=== PATIENT | male | born 1970 | race African-American/Black ===

== ENCOUNTER 2016-06-19 14:41 | Inpatient (IN) | payer MEDICARE, OTHER ==
[~2016-06-19] VITALS: Ht 180.3 cm; Wt 114.4 kg
[~2016-06-19 14:41] MED LIST changes: -CARI350T20 PO; -CIAL5TAB PO; -HYDR-3534 PO; -OXYB5TAB10 PO; -PHEN0.4T PO; -TAMS5CAP PO
[2016-06-24] MEDS ORDERED: INSULIN HUMAN REGULAR 1,000 UNITS/10 ML VIAL SQ PRN (07:00)
[2016-06-24] MEDS ORDERED: LACTATED RINGER'S 1000 ML IV SCH (07:00)
[2016-06-24] MEDS ORDERED: SOD PHOSPHATE/SOD BIPHOSPHATE (ADULT) ENEMA 133ML PR ONE (07:00)
[2016-06-24] MEDS ORDERED: ceFAZolin 1,000 MG/NS 100 ML IV SCH ×2 (07:00)
[2016-06-24] MEDS ORDERED: SODIUM CHLORID 0.9% 500 ML IV SCH (07:00)
[2016-06-24] MEDS ORDERED: METOPROLOL TARTRATE 25 MG TAB PO PRN (07:00)
[2016-06-24 07:14] VITALS: BP 170/96; PULSE 72; RESP 20; TEMP 98.2; O2SAT 97
[2016-06-24] MEDS ORDERED: fentaNYL CITRATE 250 MCG/5 ML AMP ONE ×3 (07:44→15:10)
[2016-06-24] MEDS ORDERED: HYDROmorphone HCL PF 2 MG/ML VIAL ONE (07:44)
[2016-06-24] MEDS ORDERED: MIDAZOLAM HCL 2 MG/2 ML VIAL ONE (07:46)
[2016-06-24] MEDS ORDERED: HEPARIN SODIUM - SQ 10,000 UNITS/ML VIAL ONE (08:29)
[2016-06-24] MEDS ORDERED: ceFAZolin INJ 1,000 MG VIAL TOP ONE (09:14)
[2016-06-24] MEDS ORDERED: HEPARIN SODIUM - SQ 10,000 UNITS/ML VIAL OTHER ONE (09:14)
[2016-06-24] MEDS ORDERED: ONDANSETRON HCL 4 MG/2 ML VIAL IV PUSH ONE (11:01)
[2016-06-24] MEDS ORDERED: NEOSTIGMINE 3 MG/3 ML SYR IV ONE (11:01)
[2016-06-24] MEDS ORDERED: PROPOFOL 200 MG/20 ML AMP IV ONE (11:01)
[2016-06-24] MEDS ORDERED: LACTATED RINGER'S 1000 ML INJ 2,000 ML IV ONE (11:01)
[2016-06-24] MEDS ORDERED: SODIUM CHLORID 0.9% 500 ML INJ 500 ML IV ONE (11:01)
[2016-06-24] MEDS ORDERED: NORMOSOL R INJ 2,000 ML IV ONE (11:01)
[2016-06-24] MEDS ORDERED: PHENYLEPH/NS 1000 MCG/10 ML SYR IV ONE (11:01)
[2016-06-24] MEDS ORDERED: ceFAZolin 2 GM PREMIX 50 ML ONE (11:06)
[2016-06-24 12:15] LABS: BLOOD GAS BASE EXCESS -3.5 mmol/L (-2-2); BLOOD GAS CARBOXYHEMOGLOBIN 3.4 % (0-4); BLOOD GAS HCO3 21 mmol/L (22-26); BLOOD GAS METHEMOGLOBIN 1.5 % (0-2); BLOOD GAS O2 HGB SATURATION 94 % (90-100); BLOOD GAS PCO2 40 mmHg (38-42); BLOOD GAS PO2 156 mmHg (61-120); BLOOD GAS TOTAL HGB 11.1 G/DL (12.0-16.0); CRITICAL VALUE NO; OXYGEN DEVICE VENTILATOR; TEMP CORR TO 98.6
[2016-06-24 12:16] LABS: FIO2 21 %; VENT SETTINGS OR SETTINGS
[2016-06-24 12:17] LABS: STAT YES; ULNAR PULSE PRESENT
[2016-06-24 13:51] LABS: BLOOD GAS BASE EXCESS -3.2 mmol/L (-2-2); BLOOD GAS CARBOXYHEMOGLOBIN 2.6 % (0-4); BLOOD GAS HCO3 22 mmol/L (22-26); BLOOD GAS METHEMOGLOBIN 1.7 % (0-2); BLOOD GAS O2 HGB SATURATION 95 % (90-100); BLOOD GAS OXYGEN CONTENT 15.9 Vol % (12.0-20.0); BLOOD GAS PCO2 40 mmHg (38-42); BLOOD GAS PO2 187 mmHg (61-120); BLOOD GAS TOTAL HGB 11.6 G/DL (12.0-16.0); TEMP CORR TO 98.6
[2016-06-24 13:52] LABS: CRITICAL VALUE NO; FIO2 21 %; OXYGEN DEVICE VENTILATOR; STAT YES; ULNAR PULSE PRESENT; VENT SETTINGS OR SETTINGS
[2016-06-24 13:57] LABS: HEMATOCRIT 30.1 % (39.0-51.0); MEAN CORPUSCULAR HEMOGLOBIN 31.4 PG (27.0-34.0); MEAN CORPUSCULAR HGB CONC 34.1 % (32.0-36.0); PLATELET COUNT 271 TH/MM3 (150-450); RED BLOOD COUNT 3.27 MIL/MM3 (4.50-5.90); RED CELL DISTRIBUTION WIDTH 13.9 % (11.6-17.2); REVIEW FLAG FINAL; WHITE BLOOD COUNT 7.9 TH/MM3 (4.0-11.0)
[2016-06-24] MEDS ORDERED: ONDANSETRON HCL 4 MG/2 ML VIAL IV PUSH PRN (15:00)
[2016-06-24] MEDS: HYDROmorphone HCL PCA 6 MG/30 ML IV SCH (15:10)
--- NOTE | 2016-06-24 15:21 | PD.OP ---
Operative Report Date of Surgery: Jun 24, 2016 Preoperative Diagnosis: Prostate cancer Postoperative Diagnosis: Same Procedure: Radical retropubic prostatectomy with bilateral pelvic lymph node dissection Anesthesia: ECTORA Surgeon: Vidal Rodriguez Podiatric Foot And Ankle Specialist(s): Dr. Ellis Yee Resident Surgeon: None Operation and Findings: Diann Dolan is a 45-year-old male with a diagnosis of Belen 9 prostate cancer. PSA was 13. His bone scan and CT scan preoperatively were negative. Patient elected to undergo radical retropubic prostatectomy with bilateral pelvic lymph node dissection. Risk were discussed preoperatively with the patient and his including impotence and incontinence. Patient also understood that given his high Belen score (9) he may need adjuvant therapy. Patient was brought to the operating room and identified myself as Diann Oliveira. He is placed on the operating table in the supine position, prepped and draped in usual sterile fashion, received preprocedure antibiotics, and general endotracheal tube anesthesia was administered. 15 blade was used to make the opening incision extending from the umbilicus down to the symphysis pubis. Scar present Risk fashion were entered. The Bovie cautery was used to maintain hemostasis. The linea alba was identified and the rectus muscle was split with my index finger. The space of Retzius was identified and the fat was swept laterally. The Bookwalter retractor was then placed. A 20 [place] Merchant catheter was inserted to beginning of the procedure. The bladder blade was inserted and the bladder was then elevated. Initially, the dissection occurred at the left pelvic obturator node pocket. Using the Metzenbaum scissors and the small clip crystal evaluator, lymph node packet was dissected out freely and removed without difficulty. Care was taken to avoid the obturator nerve. This was then performed on the right side. The right obturator lymph node packet was then sent to pathology. Frozen section analysis showed that this was negative. Unfortunately the left obturator node packet was placed in formalin and was not able to be sent for frozen analysis. Dissection then proceeded at the dorsal vein complex. A 2-0 Vicryl suture was used to suture ligate the dorsal vein complex. Using the scissors then the dorsal vein complex was cut along with the puboprostatics. The urethra was then cut and the catheter was identified. Using a right angle clamp, the catheter was elevated and cut and brought through the urethra and out leaving the Merchant balloon intact. Right angle clamp was then utilized to get behind the posterior inferior aspect of the urethra and this was then cut with the Metzenbaum scissors. Using my index finger, the butter plane was established between the prostate and the rectum. This was difficult to dissect out freely and I needed to use a scissors to separate the rectum from the inferior aspect of the prostate. Once that was freed up then attention was directed to the lateral pedicles. Using a radial clamp and a silk suture the pedicles were dissected out and ligated. There were then cut using the Metzenbaum scissor. The bladder neck was then identified and using the scissors this was cut right at the prosthetic bladder junction. Circumferentially the bladder neck was cut and eventually entirely from the prostate. Care was taken to avoid the ureteral orifices. These were both identified and 5 [place] open catheter was inserted into both. Due to the close proximity of the right ureteral orifice to the cut margin, a 6 [place] 22 cm right double-J stent was placed over a sensor wire and left in good position. The remaining dissection of the seminal vesicles and vas deferens was then performed and once those attachments were free and the prostate was inspected entire specimen was brought out. Hemostasis was obtained using the Bovie cautery. At this time the bladder neck was closed using the tennis racket technique. And then the opening of the bladder was then maggie budded using a 2-0 Vicryl suture with interrupted circumferential sutures. One frozen section area of the bladder neck was sent to pathology and this area was negative for any evidence of prosthetic tissue or tumor. At this time the bladder neck anastomosis was performed. A new 20 [place] Merchant catheter was inserted into the bladder and then 5 2-0 Vicryl sutures were placed at the region of the bladder neck as well as the prostatic urethra. These were then tied down individually while traction was placed on the Merchant catheter. Merchant was then irrigated to clear and good filling of the bladder was noted. A 10 [place] BABITA drain was left in the bladder neck anastomosis and brought out through the scans. The wound was irrigated with warm saline. 0 looped PDS was then used to close the fascia and then lindy were used to close the skin incision. The patient was stable throughout the entire procedure with the blood loss 1300 cc. He was awoken, extubated, and transferred her stable condition. Vdial Rodriguez DO Jun 24, 2016 15:21
[2016-06-24] MEDS ORDERED: PILL SPLITTER OTHER PRN (15:30)
[2016-06-24] MEDS ORDERED: HYDROmorphone HCL PCA 6 MG/30 ML IV ONE (15:32)
[2016-06-24] MEDS: SODIUM CHLOR 0.45% 1000 ML INJ 1,000 ML IV SCH ×2 (15:40→21:28)
--- NOTE | 2016-06-24 15:50 | RADRPT ---
EXAM DATE/TIME: 06/24/2016 15:06 [facility] COMPARISON: No previous studies available for comparison. INDICATIONS : JJ stent insertion. MEDICAL HISTORY : Hypertension. Asthma. SURGICAL HISTORY : Appendectomy. ENCOUNTER: Initial ACUITY: 1 day PAIN SCORE: Non-responsive. LOCATION: Bilateral Abdomen FINDINGS: Single, limited view of the abdomen. The patient is obliqued. I can see the upper portion of the righ t double-J stent and the Freeland loop in the region of the pelvis. Multiple pelvic sidewall surgical sta ples are identified on the left. Visualized osseous structures are otherwise intact. Bowel gas patter n is nonobstructed. CONCLUSION: 1. Very limited examination with no obvious obstruction. 2. Double-J stent is incompletely evaluated. I do see the proximal portion at the level of the L2 jyoti tebral body with the Freeland loop at the edge of the film in the region of the pelvis. Heber Fabian MD on June 24, 2016 at 15:46 Board Certified Radiologist. This report was verified electronically.
[2016-06-24] MEDS ORDERED: DO NOT ADM ANY ANTICOAGULANT DRUGS XX PRN (16:00)
[2016-06-24 16:14] LABS: POTASSIUM 4.6 MEQ/L (3.5-5.1)
[2016-06-24] MEDS ORDERED: diphenhydrAMINE HCL 50 MG/ML VIAL IV PUSH PRN (16:15)
[2016-06-24] MEDS ORDERED: NALOXONE HCL 0.4 MG/ML AMP IV PRN (16:15)
[2016-06-24 16:28] LABS: CALCIUM-PROTEIN CORRECTED 8.1 MG/DL (8.5-10.1)
[2016-06-24 17:59] LABS: BLOOD GAS BASE EXCESS -2.4 mmol/L (-2-2); BLOOD GAS CARBOXYHEMOGLOBIN 2.1 % (0-4); BLOOD GAS HCO3 22 mmol/L (22-26); BLOOD GAS METHEMOGLOBIN 1.8 % (0-2); BLOOD GAS O2 HGB SATURATION 91 % (90-100); BLOOD GAS OXYGEN CONTENT 13.3 Vol % (12.0-20.0); BLOOD GAS PCO2 41 mmHg (38-42); BLOOD GAS PO2 79 mmHg (61-120); BLOOD GAS TOTAL HGB 10.3 G/DL (12.0-16.0); CRITICAL VALUE NO; DRAW SITE LT RADIAL; LITER FLOW 3 L/M; NUMBER OF ARTERIAL PUNCTURES 1; OXYGEN DEVICE NASAL CANNULA; STAT NO; TEMP CORR TO 98.6; ULNAR PULSE PRESENT
[2016-06-24] MEDS ORDERED: *LABETALOL HCL 100 MG/20 ML VIAL PERIprocedural Use ONLY ONE (18:19)
[2016-06-24] MEDS ORDERED: *HYDROmorphone PF 1 MG VIAL PERIprocedural Use ONLY ONE (18:39)
[2016-06-24] MEDS: ceFAZolin 2 GM PREMIX 50 ML IV SCH (19:35)
[2016-06-24 20:00] VITALS: BP 170/79; PULSE 85; RESP 17; TEMP 96.1; O2SAT 98
[2016-06-24] MEDS: carBAMazepine 200 MG TAB PO SCH (21:00)
[2016-06-24] MEDS: PCA - TOTAL MG DILAUDID DELIVERED PER SHIFT SCH (21:26)
[2016-06-25] VITALS (7 sets, daily range): BP systolic 131–154; BP diastolic 65–82; PULSE 81–101; RESP 17–18; TEMP 97.8–98.8; O2SAT 94–97
[2016-06-25] MEDS: carBAMazepine 200 MG TAB PO SCH ×3 (02:52→21:37)
[2016-06-25] MEDS: ceFAZolin 2 GM PREMIX 50 ML IV SCH ×2 (02:53→11:36)
[2016-06-25] MEDS: CYCLOBENZAPRINE HCL 10 MG TAB PO PRN ×3 (02:53→21:37)
[2016-06-25] MEDS: HYDROmorphone HCL PCA 6 MG/30 ML IV SCH ×3 (03:42→17:33)
[2016-06-25 04:31] LABS: HEMATOCRIT 31.3 % (39.0-51.0); MEAN CELL VOLUME 93.3 FL (80.0-100.0); MEAN CORPUSCULAR HEMOGLOBIN 30.2 PG (27.0-34.0); MEAN CORPUSCULAR HGB CONC 32.3 % (32.0-36.0); PLATELET COUNT 229 TH/MM3 (150-450); RED BLOOD COUNT 3.36 MIL/MM3 (4.50-5.90); RED CELL DISTRIBUTION WIDTH 13.6 % (11.6-17.2); WHITE BLOOD COUNT 14.6 TH/MM3 (4.0-11.0)
[2016-06-25 04:37] LABS: REVIEW FLAG FINAL
[2016-06-25 04:56] LABS: BICARBONATE 23.9 MEQ/L (21.0-32.0); POTASSIUM 4.8 MEQ/L (3.5-5.1)
[2016-06-25] MEDS: PCA - TOTAL MG DILAUDID DELIVERED PER SHIFT SCH ×3 (05:29→21:39)
[2016-06-25] MEDS: SODIUM CHLOR 0.45% 1000 ML INJ 1,000 ML IV SCH ×3 (05:30→23:30)
--- NOTE | 2016-06-25 08:14 | HHI.PR ---
Subjective Patient symptoms today Pt seen and examined. Pain controlled. C/O headace. Objective Vital Signs Vital Signs Date Time Temp Pulse Resp B/P Pulse Ox O2 Delivery O2 Flow Rate FiO2 06/25/16 04:00 98.6 81 17 131/79 97 06/25/16 00:00 98.8 99 18 140/82 97 06/24/16 20:00 96.1 85 17 170/79 98 06/24/16 19:30 98.2 87 14 152/85 99 Nasal Cannula 2 06/24/16 19:00 85 14 136/88 100 Nasal Cannula 2 06/24/16 18:45 83 14 122/83 100 Nasal Cannula 2 06/24/16 18:30 85 14 138/75 98 Nasal Cannula 2 06/24/16 18:20 107 14 182/83 98 06/24/16 18:15 108 14 196/83 98 Nasal Cannula 2 06/24/16 18:00 95 14 155/81 98 Nasal Cannula 2 06/24/16 17:45 97 14 155/82 98 Nasal Cannula 2 06/24/16 17:30 95 14 171/85 99 Nasal Cannula 2 06/24/16 17:15 91 14 152/71 100 Nasal Cannula 2 06/24/16 17:00 94 14 156/73 100 Nasal Cannula 2 06/24/16 16:45 91 14 143/70 100 Nasal Cannula 2 06/24/16 16:30 92 14 138/74 100 Nasal Cannula 2 06/24/16 16:15 93 14 139/83 98 Nasal Cannula 2 06/24/16 16:00 97 14 138/82 100 Nasal Cannula 2 06/24/16 15:45 92 14 132/57 99 Nasal Cannula 3 06/24/16 15:30 88 16 151/69 99 Nasal Cannula 3 06/24/16 15:15 92 16 166/77 98 Nasal Cannula 3 06/24/16 15:10 14 06/24/16 15:00 97.8 98 16 166/83 100 Simple Mask 6 Result Diagram: 06/25/1635806/25/16358 Objective Remarks Abd:soft,nt,nt Dressing intact Merchant with slight blood tinge color Ext: neg C/C/E Medications and IVs Current Medications Medications (Trade) Dose Ordered Sig/Christiano Route Start Time Stop Time Status Last Admin Cefazolin Sodium/ Dextrose 50 ml @ 100 mls/hr Q8H IV 06/24/16 20:00 06/25/16 12:29 06/25/16 02:53 (1/2 NS 1000 ml Inj) 1,000 ml @ 125 mls/hr Q8H IV 06/24/16 15:30 06/25/16 05:30 (Zofran Inj) 4 mg Q6HR PRN IV PUSH 06/24/16 15:00 (TEGretol) 200 mg Q12HR PO 06/24/16 21:00 06/25/16 02:52 (Prinivil) 20 mg DAILY PO 06/25/16 09:00 (Tylenol 650 Mg/ 20 ml Liq) 650 mg Q6H PRN PO 06/24/16 15:00 (Flexeril) 5 mg Q8H PRN PO 06/24/16 15:00 06/25/16 02:53 (Pill Splitter) 1 ea UNSCH PRN OTHER 06/24/16 15:30 Miscellaneous Information ALL NURSING DEPARTME... UNSCH PRN XX 06/24/16 16:00 06/25/16 15:59 (Dilaudid ONLINE MEDIA BUYER Inj) 6 mg UNSCH IV 06/24/16 16:30 06/25/16 03:42 ONLINE MEDIA BUYER Dosage Infused (Pha) 1 Q8HR .XX 06/24/16 22:00 06/25/16 05:29 (Narcan Inj) 0.4 mg UNSCH PRN IV 06/24/16 16:15 (Benadryl Inj) 25 mg Q6H PRN IV PUSH 06/24/16 16:15 Assessment and Plan Assessment and Plan Stable s/p RRP and PLND POD#1 OOB to chair Clear liquid diet Tylenol for headace Vidal Rodriguez DO Jun 25, 2016 08:14
[2016-06-25] MEDS: LISINOPRIL 20 MG TAB PO SCH (08:28)
[2016-06-25] MEDS: ACETAMINOPHEN 650 MG/20.3 ML UDC PO PRN ×2 (08:30→18:43)
[2016-06-26] VITALS: BP 137/63; PULSE 99; RESP 18; TEMP 96.3; O2SAT 98
[2016-06-26 04:00] VITALS: BP 147/69; PULSE 96; RESP 18; TEMP 98.8; O2SAT 95
[2016-06-26 05:35] LABS: HEMATOCRIT 24.5 % (39.0-51.0); MEAN CELL VOLUME 92.3 FL (80.0-100.0); MEAN CORPUSCULAR HEMOGLOBIN 31.7 PG (27.0-34.0); MEAN CORPUSCULAR HGB CONC 34.4 % (32.0-36.0); PLATELET COUNT 237 TH/MM3 (150-450); RED BLOOD COUNT 2.66 MIL/MM3 (4.50-5.90); RED CELL DISTRIBUTION WIDTH 13.4 % (11.6-17.2); REVIEW FLAG FINAL; WHITE BLOOD COUNT 10.1 TH/MM3 (4.0-11.0)
[2016-06-26 05:58] LABS: BICARBONATE 25.3 MEQ/L (21.0-32.0); POTASSIUM 4.4 MEQ/L (3.5-5.1)
[2016-06-26] MEDS: PCA - TOTAL MG DILAUDID DELIVERED PER SHIFT SCH ×3 (06:00→21:07)
[2016-06-26] MEDS ORDERED: LORazepam 2 MG/ML VIAL IV SCH (06:05)
[2016-06-26] MEDS ORDERED: LORazepam 2 MG/ML VIAL IV PRN (06:15)
[2016-06-26] MEDS: SODIUM CHLOR 0.45% 1000 ML INJ 1,000 ML IV SCH ×2 (07:30→21:07)
[2016-06-26 08:00] VITALS: BP 133/63; PULSE 109; RESP 19; TEMP 97.6; O2SAT 95
[2016-06-26] MEDS: carBAMazepine 200 MG TAB PO SCH ×2 (08:08→21:06)
[2016-06-26] MEDS: LISINOPRIL 20 MG TAB PO SCH (08:08)
--- NOTE | 2016-06-26 08:44 | HHI.PR ---
Subjective Patient symptoms today Pt seen and examined. Appears somulent. at bedside and is empting BABITA drain. States "he had a seizure last night and is not getting the correct dose of tegratol." Objective Vital Signs Vital Signs Date Time Temp Pulse Resp B/P Pulse Ox O2 Delivery O2 Flow Rate FiO2 06/26/16 08:00 97.6 109 19 133/63 95 06/26/16 06:00 20 06/26/16 04:00 98.8 96 18 147/69 95 06/26/16 00:00 96.3 99 18 137/63 98 06/25/16 21:39 18 06/25/16 20:00 98.3 97 18 144/65 95 06/25/16 17:46 97 Nasal Cannula 2.00 06/25/16 17:33 16 06/25/16 13:11 18 06/25/16 12:00 98.8 96 18 144/81 97 06/25/16 11:42 18 Intake & Output 06/26/16 06/26/16 07:00 19:00 Intake Total 2419 ml 120 ml Output Total 1680 ml Balance 739 ml 120 ml Intake Oral 440 ml 120 ml IV Total 1979 ml Output Urine Total 1600 ml Drainage Total 80 ml # Bowel Movements 0 Result Diagram: 06/26/1643506/26/16435 Objective Remarks Abd:soft,nt,nt Dressing intact Merchant with slight blood tinge color Ext: neg C/C/E 06/26 Abd:soft,nt,nd Dressing intact BABITA: serous drainage Merchant: urine clearing Ext: neg C/C/E Medications and IVs Current Medications Medications (Trade) Dose Ordered Sig/Christiano Route Start Time Stop Time Status Last Admin (04/07 NS 1000 ml Inj) 1,000 ml @ 125 mls/hr Q8H IV 06/24/16 15:30 06/25/16 23:30 (Zofran Inj) 4 mg Q6HR PRN IV PUSH 06/24/16 15:00 (Prinivil) 20 mg DAILY PO 06/25/16 09:00 06/26/16 08:08 (Tylenol 650 Mg/ 20 ml Liq) 650 mg Q6H PRN PO 06/24/16 15:00 06/25/16 18:43 (Flexeril) 5 mg Q8H PRN PO 06/24/16 15:00 06/25/16 21:37 (Pill Splitter) 1 ea UNSCH PRN OTHER 06/24/16 15:30 (Dilaudid GENERAL ASSEMBLER INSTALLER Inj) 6 mg UNSCH IV 06/24/16 16:30 06/25/16 17:33 GENERAL ASSEMBLER INSTALLER Dosage Infused (Pha) 1 Q8HR .XX 06/24/16 22:00 06/26/16 06:00 (Narcan Inj) 0.4 mg UNSCH PRN IV 06/24/16 16:15 (Benadryl Inj) 25 mg Q6H PRN IV PUSH 06/24/16 16:15 (TEGretol) 600 mg Q12HR PO 06/26/16 09:00 06/26/16 08:08 (Ativan Inj) 0.5 mg Q6HR PRN IV 06/26/16 06:15 06/26/16 07:29 Assessment and Plan Assessment and Plan Stable s/p RRP and PLND POD#1 OOB to chair Clear liquid diet Tylenol for headace 06/26 Stable s/p RRP and PLND POD#2 OOB to chair Encourage I/S Vidal Rodriguez DO Jun 26, 2016 08:44
[2016-06-26] MEDS: HYDROmorphone HCL PCA 6 MG/30 ML IV SCH (11:39)
[2016-06-26 12:00] VITALS: BP 142/69; PULSE 110; RESP 22; TEMP 98.6; O2SAT 100
[2016-06-26 16:00] VITALS: BP 139/78; PULSE 96; RESP 20; TEMP 97.8; O2SAT 99
[2016-06-26 20:00] VITALS: BP 154/73; PULSE 105; RESP 18; TEMP 98.6; O2SAT 96
[2016-06-26] MEDS: CYCLOBENZAPRINE HCL 10 MG TAB PO PRN (21:06)
[2016-06-27] VITALS (11 sets, daily range): BP systolic 113–156; BP diastolic 56–71; PULSE 79–95; RESP 16–20; TEMP 96–98.4; O2SAT 92–97
[2016-06-27 04:29] LABS: MEAN CELL VOLUME 92.7 FL (80.0-100.0); MEAN CORPUSCULAR HEMOGLOBIN 31.3 PG (27.0-34.0); MEAN CORPUSCULAR HGB CONC 33.7 % (32.0-36.0); PLATELET COUNT 201 TH/MM3 (150-450); RED BLOOD COUNT 2.23 MIL/MM3 (4.50-5.90); RED CELL DISTRIBUTION WIDTH 13.6 % (11.6-17.2); WHITE BLOOD COUNT 8.2 TH/MM3 (4.0-11.0)
[2016-06-27 04:33] LABS: REVIEW FLAG FINAL
[2016-06-27 04:37] LABS: HEMATOCRIT 20.7 % (39.0-51.0)
[2016-06-27] MEDS: PCA - TOTAL MG DILAUDID DELIVERED PER SHIFT SCH (06:00)
[2016-06-27 08:33] LABS: HEMATOCRIT 21.2 % (39.0-51.0); REVIEW FLAG FINAL
[2016-06-27] MEDS: LISINOPRIL 20 MG TAB PO SCH (08:56)
[2016-06-27] MEDS: carBAMazepine 200 MG TAB PO SCH ×2 (08:56→20:14)
[2016-06-27] MEDS: SODIUM CHLOR 0.45% 1000 ML INJ 1,000 ML IV SCH ×2 (09:03→22:39)
--- NOTE | 2016-06-27 10:10 | HHI.PR ---
Subjective Patient symptoms today Pt seen and examined. Somewhat sleepy. No pain. Objective Vital Signs Vital Signs Date Time Temp Pulse Resp B/P Pulse Ox O2 Delivery O2 Flow Rate FiO2 06/27/16 06:00 18 06/27/16 04:00 96.0 93 18 156/71 95 06/27/16 00:00 97.9 95 18 136/65 96 06/26/16 21:07 18 06/26/16 20:00 98.6 105 18 154/73 96 06/26/16 16:00 97.8 96 20 139/78 99 06/26/16 13:58 14 06/26/16 12:00 98.6 110 22 142/69 100 06/26/16 11:56 14 06/26/16 11:39 14 Intake & Output 06/27/16 06/27/16 07:00 19:00 Intake Total 2370 ml Output Total 3750 ml Balance -1380 ml Intake Oral 360 ml IV Total 2010 ml Output Urine Total 3650 ml Drainage Total 100 ml # Bowel Movements 0 Result Diagram: 06/27/16 0820 06/26/16 0436 Objective Remarks Abd:soft,nt,nt Dressing intact Merchant with slight blood tinge color Ext: neg C/C/E 06/26 Abd:soft,nt,nd Dressing intact BABITA: serous drainage Merchant: urine clearing Ext: neg C/C/E 06/27 Abd:soft,nt,nd Dressing intact BABITA moderate drainage Merchant: urine is blood tinged Ext: neg C/C/E Medications and IVs Current Medications Medications (Trade) Dose Ordered Sig/Christiano Route Start Time Stop Time Status Last Admin (04/07 NS 1000 ml Inj) 1,000 ml @ 75 mls/hr [id number] IV 06/24/16 15:30 06/27/16 09:03 (Zofran Inj) 4 mg Q6HR PRN IV PUSH 06/24/16 15:00 (Prinivil) 20 mg DAILY PO 06/25/16 09:00 06/27/16 08:56 (Tylenol 650 Mg/ 20 ml Liq) 650 mg Q6H PRN PO 06/24/16 15:00 06/25/16 18:43 (Flexeril) 5 mg Q8H PRN PO 06/24/16 15:00 06/26/16 21:06 (Pill Splitter) 1 ea UNSCH PRN OTHER 06/24/16 15:30 (Dilaudid ELECTRIC LOCOMOTIVE FIRER/FIREMAN Inj) 6 mg UNSCH IV 06/24/16 16:30 06/26/16 11:39 ELECTRIC LOCOMOTIVE FIRER/FIREMAN Dosage Infused (Pha) 1 Q8HR .XX 06/24/16 22:00 06/27/16 06:00 (Narcan Inj) 0.4 mg UNSCH PRN IV 06/24/16 16:15 (Benadryl Inj) 25 mg Q6H PRN IV PUSH 06/24/16 16:15 (TEGretol) 600 mg Q12HR PO 06/26/16 09:00 06/27/16 08:56 Assessment and Plan Assessment and Plan Stable s/p RRP and PLND POD#1 OOB to chair Clear liquid diet Tylenol for headace 06/26 Stable s/p RRP and PLND POD#2 OOB to chair Encourage I/S 3 Stable s/p RRP and PLND POD#3 Hgb at 7.2 Transfuse 2 units PRBC's todya OOB to chair/ambulate D/C ELECTRIC LOCOMOTIVE FIRER/FIREMAN Vidal Rodriguez DO Jun 27, 2016 10:10
[2016-06-27] MEDS: ACETAMINOPHEN/HYDROcodone 325 MG/5 MG TAB PO PRN ×3 (12:05→20:15)
[2016-06-27 18:52] LABS: HEMATOCRIT 26.5 % (39.0-51.0)
[2016-06-27] MEDS: CYCLOBENZAPRINE HCL 10 MG TAB PO PRN (23:26)
[2016-06-28 00:07] VITALS: BP 141/67; PULSE 81; RESP 21; TEMP 98.2; O2SAT 99
[2016-06-28] MEDS: ACETAMINOPHEN/HYDROcodone 325 MG/5 MG TAB PO PRN ×5 (01:58→22:38)
[2016-06-28 04:35] LABS: HEMATOCRIT 25.7 % (39.0-51.0); MEAN CELL VOLUME 90.7 FL (80.0-100.0); MEAN CORPUSCULAR HEMOGLOBIN 31.2 PG (27.0-34.0); MEAN CORPUSCULAR HGB CONC 34.4 % (32.0-36.0); PLATELET COUNT 233 TH/MM3 (150-450); RED BLOOD COUNT 2.84 MIL/MM3 (4.50-5.90); RED CELL DISTRIBUTION WIDTH 14.5 % (11.6-17.2); REVIEW FLAG FINAL; WHITE BLOOD COUNT 8.1 TH/MM3 (4.0-11.0)
[2016-06-28 07:40] VITALS: O2SAT 95
[2016-06-28 08:00] VITALS: BP 128/61; PULSE 76; RESP 18; TEMP 97; O2SAT 94
[2016-06-28] MEDS: carBAMazepine 200 MG TAB PO SCH ×2 (08:18→20:41)
[2016-06-28] MEDS: LISINOPRIL 20 MG TAB PO SCH (08:19)
--- NOTE | 2016-06-28 10:08 | HHI.PR ---
Subjective Patient symptoms today Pt seen and examined. Feeling better. S/P 2 units PRBC's yesterday. Path reviewed. Objective Vital Signs Vital Signs Date Time Temp Pulse Resp B/P Pulse Ox O2 Delivery O2 Flow Rate FiO2 06/28/16 08:00 97.0 76 18 128/61 94 06/28/16 07:40 95 21 06/28/16 00:07 98.2 81 21 141/67 99 06/27/16 20:00 98.2 79 20 113/56 96 06/27/16 18:22 93 21 06/27/16 16:00 97.8 85 20 114/59 93 06/27/16 13:05 18 06/27/16 12:49 98.3 84 20 132/63 97 06/27/16 12:00 96.9 89 20 124/60 93 06/27/16 11:27 96.9 89 20 124/60 92 06/27/16 10:36 98.3 89 18 133/60 93 06/27/16 10:17 98.4 92 19 130/59 92 Intake & Output 06/28/16 06/28/16 07:00 19:00 Intake Total 480 ml Output Total 1620 ml Balance -1140 ml Intake Oral 480 ml Output Urine Total 1550 ml Drainage Total 70 ml # Bowel Movements 1 Result Diagram: 06/28/16 0336 06/26/16 0436 Objective Remarks Abd:soft,nt,nt Dressing intact Merchant with slight blood tinge color Ext: neg C/C/E 06/26 Abd:soft,nt,nd Dressing intact BABITA: serous drainage vs urine Merchant: urine clearing Ext: neg C/C/E 06/27 Abd:soft,nt,nd Dressing intact BABITA moderate drainage Merchant: urine is blood tinged Ext: neg C/C/E 06/28 Abd:soft,nt,nd Merchant: blood tinged BABITA: serous fluid Ext: neg C/C/E Medications and IVs Current Medications Medications (Trade) Dose Ordered Sig/Christiano Route Start Time Stop Time Status Last Admin (04/07 NS 1000 ml Inj) 1,000 ml @ 75 mls/hr [id number] IV 06/24/16 15:30 06/27/16 22:39 (Zofran Inj) 4 mg Q6HR PRN IV PUSH 06/24/16 15:00 (Prinivil) 20 mg DAILY PO 06/25/16 09:00 06/28/16 08:19 (Tylenol 650 Mg/ 20 ml Liq) 650 mg Q6H PRN PO 06/24/16 15:00 06/25/16 18:43 (Flexeril) 5 mg Q8H PRN PO 06/24/16 15:00 06/27/16 23:26 (Pill Splitter) 1 ea UNSCH PRN OTHER 06/24/16 15:30 (Benadryl Inj) 25 mg Q6H PRN IV PUSH 06/24/16 16:15 (TEGretol) 600 mg Q12HR PO 06/26/16 09:00 06/28/16 08:18 (Peterson 5-325 Mg) 1 tab Q4H PRN PO 06/27/16 10:15 06/28/16 08:18 Assessment and Plan Assessment and Plan Stable s/p RRP and PLND POD#1 OOB to chair Clear liquid diet Tylenol for headace 06/26 Stable s/p RRP and PLND POD#2 OOB to chair Encourage I/S 06/27 Stable s/p RRP and PLND POD#3 Hgb at 7.2 Transfuse 2 units PRBC's today OOB to chair/ambulate D/C DISPATCHER MAINTENANCE SERVICE 06/28 Stable s/p RRP and PLND POD#4 OOB/Ambulate Heart Healthy diet Hgb 9.1 up from 7.2 Path reviewed Will send BABITA for Vidal Miles DO Jun 28, 2016 10:07
[2016-06-28 12:00] VITALS: BP 138/65; PULSE 81; RESP 20; TEMP 97.7; O2SAT 93
[2016-06-28] MEDS: SODIUM CHLOR 0.45% 1000 ML INJ 1,000 ML IV SCH (13:32)
[2016-06-28 16:00] VITALS: BP 147/70; PULSE 89; RESP 17; TEMP 95.4; O2SAT 96
[2016-06-28 20:00] VITALS: BP 143/67; PULSE 85; RESP 20; TEMP 98.5; O2SAT 95
[2016-06-28] MEDS: CYCLOBENZAPRINE HCL 10 MG TAB PO PRN (20:44)
[2016-06-29] VITALS: BP 140/65; PULSE 81; RESP 20; TEMP 98.3; O2SAT 99
[2016-06-29] MEDS: SODIUM CHLOR 0.45% 1000 ML INJ 1,000 ML IV SCH (01:19)
[2016-06-29] MEDS: ACETAMINOPHEN/HYDROcodone 325 MG/5 MG TAB PO PRN ×3 (02:30→09:49)
[2016-06-29 08:00] VITALS: BP 141/72; PULSE 73; RESP 18; TEMP 96.8; O2SAT 98
[2016-06-29] MEDS: LISINOPRIL 20 MG TAB PO SCH (08:26)
[2016-06-29] MEDS: carBAMazepine 200 MG TAB PO SCH (08:26)
--- NOTE | 2016-06-29 09:47 | HHI.PR ---
Subjective Patient symptoms today Pt feels well. Ready for d/c Objective Vital Signs Vital Signs Date Time Temp Pulse Resp B/P Pulse Ox O2 Delivery O2 Flow Rate FiO2 06/29/16 00:00 98.3 81 20 140/65 99 06/28/16 20:00 98.5 85 20 143/67 95 06/28/16 16:00 95.4 89 17 147/70 96 06/28/16 13:27 18 06/28/16 12:00 97.7 81 20 138/65 93 Intake & Output 06/29/16 06/29/16 07:00 19:00 Intake Total 1785 ml Output Total 3285 ml Balance -1500 ml Intake Oral 600 ml IV Total 1185 ml Output Urine Total 3225 ml Drainage Total 60 ml # Bowel Movements 0 Result Diagram: 06/28/16 0336 06/26/16 0436 Objective Remarks Abd:soft,nt,nt Dressing intact Merchant with slight blood tinge color Ext: neg C/C/E 06/26 Abd:soft,nt,nd Dressing intact BABITA: serous drainage vs urine Merchant: urine clearing Ext: neg C/C/E 06/27 Abd:soft,nt,nd Dressing intact BABITA moderate drainage Merchant: urine is blood tinged Ext: neg C/C/E 06/28 Abd:soft,nt,nd Merchant: blood tinged BABITA: serous fluid Ext: neg C/C/E 06/29 Abd:soft,nt,nd Wound: clean and dry BABITA removed Merchant with clear urine Medications and IVs Current Medications Medications (Trade) Dose Ordered Sig/Christiano Route Start Time Stop Time Status Last Admin (04/07 NS 1000 ml Inj) 1,000 ml @ 75 mls/hr [id number] IV 06/24/16 15:30 06/29/16 01:19 (Zofran Inj) 4 mg Q6HR PRN IV PUSH 06/24/16 15:00 (Prinivil) 20 mg DAILY PO 06/25/16 09:00 06/29/16 08:26 (Tylenol 650 Mg/ 20 ml Liq) 650 mg Q6H PRN PO 06/24/16 15:00 06/25/16 18:43 (Flexeril) 5 mg Q8H PRN PO 06/24/16 15:00 06/28/16 20:44 (Pill Splitter) 1 ea UNSCH PRN OTHER 06/24/16 15:30 (Benadryl Inj) 25 mg Q6H PRN IV PUSH 06/24/16 16:15 (TEGretol) 600 mg Q12HR PO 06/26/16 09:00 06/29/16 08:26 (Moseley 5-325 Mg) 1 tab Q4H PRN PO 06/27/16 10:15 06/29/16 05:41 Assessment and Plan Assessment and Plan Stable s/p RRP and PLND POD#1 OOB to chair Clear liquid diet Tylenol for headace 06/26 Stable s/p RRP and PLND POD#2 OOB to chair Encourage I/S 06/27 Stable s/p RRP and PLND POD#3 Hgb at 7.2 Transfuse 2 units PRBC's today OOB to chair/ambulate D/C CURED MEATS SUPERVISOR 06/28 Stable s/p RRP and PLND POD#4 OOB/Ambulate Heart Healthy diet Hgb 9.1 up from 7.2 Path reviewed Will send BABITA for creatinine 06/29 Stable s/p RRP and PLND POD#5 D/C home Vidal Rodriguez DO Jun 29, 2016 09:47
[2016-06-29] MEDS: CYCLOBENZAPRINE HCL 10 MG TAB PO PRN (09:57)
--- NOTE | 2016-07-01 13:49 | MD ---
cc: DENIZ RODRIGUEZ ADMISSION DATE: 06/24/2016 DISCHARGE DATE: 06/29/2016 BRIEF HISTORY Tulio Oliveira is a 45-year-old male who presented with a history of prostate cancer diagnosed on prostate needle biopsy. Decision was made to bring the patient to the operating room to undergo radical retropubic prostatectomy and pelvic lymph node dissection. Risks and benefits were discussed preoperatively and he was willing to proceed. HOSPITAL COURSE Hospital day #1 he tolerated the procedure well, was transferred to the floor in stable condition. Throughout the course of his admission his urine output was adequate. He eventually passed gas and was started on a regular diet. He was ambulating without difficulty. His path came back Belen 7, with extracapsular extension identified with some involvement of the seminal vesicle also identified. He will follow-up in the office next Thursday to have his lindy removed and will further review pathology at that time. In two weeks he will undergo a cystogram with Merchant catheter removal in the operating room. At the time of discharge he was given instructions concerning diet, exercise and medications. Deniz Rodriguez SWT/BT /9:52 AM /1:45 PM
[2016-07-21] MEDS ORDERED: PHEN0.4T PO (12:44)
[2016-07-21] MEDS ORDERED: OXYB5TAB10 PO (12:44)
[2016-08-27] MEDS ORDERED: CIAL5TAB PO (14:27)
[2016-08-27] MEDS ORDERED: OXYB5TAB10 PO (14:27)
== END 2016-06-29 11:19 | disposition home or self-care (01) | DRG 708 ==
LOC: HSDI 06-24 06:08 → N07A 06-24 19:45
PROVIDERS: ADMIT Urology; ATTEND Urology
PROC: 07TC0ZZ Resection of Pelvis Lymphatic, Open Approach (ICD-10-PCS; 2016-06-24)
PROC: 0VT00ZZ Resection of Prostate, Open Approach (ICD-10-PCS; principal; 2016-06-24 08:26)
PROC: 30233N1 Transfusion of Nonautologous Red Blood Cells into Peripheral Vein, Percutaneous Approach (ICD-10-PCS; 2016-06-27)
DX: C61 Malignant neoplasm of prostate (principal); I10 Essential (primary) hypertension; G47.30 Sleep apnea, unspecified; J45.909 Unspecified asthma, uncomplicated; E78.5 Hyperlipidemia, unspecified; F32.9 Major depressive disorder, single episode, unspecified; F17.210 Nicotine dependence, cigarettes, uncomplicated; Z88.5 Allergy status to narcotic agent
CPT/HCPCS: 36430; 36600; 74000; 80048; 82805; 84155; 85014; 85018; 85027; 86850; 86900; 86901; 86920; 87641; 88305; 88307; 88331; 88333; 94150; A4346; C1769; C2617; J0690; J1170; J1644; J2060; J2250; J2370; J2405; J2710; J3010; J7040; J7120; P9016

== ENCOUNTER → 2016-06-19 | Outpatient (CLI) | payer MEDICARE, OTHER ==
[~2016-06-19] MED LIST: CARI350T20 PO; CIAL5TAB PO; HYDR-3534 PO; LISI-515 PO; OXYB5TAB10 PO; PHEN0.4T PO; ROSU40 PO; TAMS5CAP PO; TEGR200T PO
[2016-06-19 15:49] LABS: BLOOD, URINE NEG (NEG); COMMENT (UR) CULTURE INDICATED; CULTURE IF INDICATED CULTURE INDICATED; GLUCOSE,URINE NEG (NEG); KETONE, URINE NEG (NEG); MUCUS URINE FEW /lpf (OCC); NITRITE,URINE NEG (NEG); PH, URINE 8.5 (5.0-8.5); SQUAMOUS EPITHELIAL CELL URINE 2 /hpf (0-5); URINE COLOR YELLOW (YELLW/STRAW)
[2016-06-19 15:56] LABS: BASOPHIL % 0.3 % (0.0-2.0); EOSINOPHIL # 0.3 TH/MM3 (0-0.4); EOSINOPHIL % 6.4 % (0.0-4.0); HEMATOCRIT 38.8 % (39.0-51.0); HEMO FLAGS DIFF FINAL; LYMPH % 48.6 % (9.0-44.0); LYMPHOCYTE # 2.4 TH/MM3 (1.0-4.8); MEAN CELL VOLUME 93.1 FL (80.0-100.0); MEAN CORPUSCULAR HEMOGLOBIN 30.8 PG (27.0-34.0); MEAN CORPUSCULAR HGB CONC 33.1 % (32.0-36.0); MONO % 5.1 % (0.0-8.0); NEUT % 39.6 % (16.0-70.0); PLATELET COUNT 253 TH/MM3 (150-450); RED BLOOD COUNT 4.17 MIL/MM3 (4.50-5.90); RED CELL DISTRIBUTION WIDTH 13.3 % (11.6-17.2); WHITE BLOOD COUNT 4.9 TH/MM3 (4.0-11.0)
[2016-06-19 15:59] LABS: PROTHROMBIN TIME - PATIENT 10.7 SEC (9.8-11.6)
[2016-06-19 16:05] LABS: ANION GAP 7 MEQ/L (5-15); AST (GOT) 11 U/L (15-37); BICARBONATE 27.9 MEQ/L (21.0-32.0); BLOOD UREA NITROGEN 8 MG/DL (7-18); CHLORIDE 106 MEQ/L (98-107); GLOMERULAR FILTRATION RATE 137 ML/MIN (>89); GLUCOSE,FASTING 111 MG/DL (74-99); POTASSIUM 3.9 MEQ/L (3.5-5.1); SODIUM (NA) 141 MEQ/L (136-145)
[2016-06-19 16:09] LABS: ALKALINE PHOSPHATASE 66 U/L (45-117); ALT (GPT) 20 U/L (12-78); TOTAL BILIRUBIN ADULT 0.2 MG/DL (0.2-1.0)
== END ==
LOC: CPRE 14:34
PROVIDERS: ATTEND Urology
DX: Z01.812 Encounter for preprocedural laboratory examination (principal); C61 Malignant neoplasm of prostate
CPT/HCPCS: 36415; 80053; 81001; 85025; 85610; 85730; 87086

== ENCOUNTER → 2016-07-11 | Day surgery (SDC) | payer MEDICARE, OTHER ==
[~2016-07-11] VITALS: Ht 180.3 cm; Wt 107.9 kg
[~2016-07-11] MED LIST changes: +CHLORHEXIDINE GLUCONATE 2 % 1 PACK (2 CLOTHS) TOPICAL PRN; +CIAL5TAB PO; +DIATRIZOATE MEG 30% 300 ML BOTTLE (for RAD DIAG) URETHRAL ONE; +DO NOT ADM ANY ANTICOAGULANT DRUGS PRN; +FAMOTIDINE 20 MG/2 ML VIAL ONE; +INSULIN HUMAN REGULAR 1,000 UNITS/10 ML VIAL SQ PRN; +LACTATED RINGER'S 1000 ML IV PRN; +METOPROLOL TARTRATE 25 MG TAB PO PRN; +MIDAZOLAM HCL 2 MG/2 ML VIAL ONE; +ONDANSETRON HCL 4 MG/2 ML VIAL IV PUSH ONE; +ONDANSETRON HCL 4 MG/2 ML VIAL IV PUSH PRN; +OXYB5TAB10 PO; +PHEN0.4T PO; +PHENYLEPH/NS 1000 MCG/10 ML SYR IV ONE; +POVIDONE IODINE 5% (ANTISEPSIS KIT) 4 APPLICATIONS EACH NARE PRN; +PROPOFOL 200 MG/20 ML AMP IV ONE; +SODIUM CHLORID 0.9% 500 ML IV PRN; +ceFAZolin 1,000 MG/NS 100 ML IV SCH; +fentaNYL CITRATE 250 MCG/5 ML AMP ONE
[2016-07-11 09:11] VITALS: BP 144/85; PULSE 85; RESP 16; TEMP 98.1; O2SAT 98
[2016-07-11 09:50] LABS: AUTOMATED NEUTROPHIL # 3.7 TH/MM3 (1.8-7.7); BASOPHIL % 0.3 % (0.0-2.0); EOSINOPHIL # 0.4 TH/MM3 (0-0.4); HEMATOCRIT 30.5 % (39.0-51.0); HEMO FLAGS DIFF FINAL; LYMPH % 27.6 % (9.0-44.0); LYMPHOCYTE # 1.8 TH/MM3 (1.0-4.8); MEAN CELL VOLUME 90.4 FL (80.0-100.0); MEAN CORPUSCULAR HEMOGLOBIN 30.9 PG (27.0-34.0); MEAN CORPUSCULAR HGB CONC 34.2 % (32.0-36.0); MONO % 9.4 % (0.0-8.0); NEUT % 56.7 % (16.0-70.0); PLATELET COUNT 727 TH/MM3 (150-450); RED BLOOD COUNT 3.38 MIL/MM3 (4.50-5.90); WHITE BLOOD COUNT 6.6 TH/MM3 (4.0-11.0)
--- NOTE | 2016-07-11 10:58 | PD.OP ---
Operative Report Date of Surgery: Jul 11, 2016 Preoperative Diagnosis: Date cancer status post radical retropubic prostatectomy with retained right ureteral stent and Merchant catheter Postoperative Diagnosis: Same Procedure: Flexible cystoscopy with removal of right retained double-J stent with cystogram and removal of Merchant catheter Anesthesia: Gen. LMA Surgeon: Vidal Rodriguez Imaging Tech(s): None Resident Surgeon: None Operation and Findings: Patient was brought to the cystoscopy suite and placed on the cystoscopy table in the dorsal lithotomy position. He was prepped and draped in usual sterile fashion, preprocedure antibiotics were given, and general LMA anesthesia was administered. Cystografin was injected into the Merchant catheter and there was no evidence of any leakage around the bladder neck. Merchant catheter was then removed. Flexible cystoscopy was then performed and the right ureteral stent was identified. Using the alligator grasper, the stent was removed without difficulty. He tolerated the procedure well. He will follow-up in the office in a few weeks to review his pathology. Vidal Rodriguez DO Jul 11, 2016 10:58
[2016-07-11 13:15] VITALS: BP 155/75; PULSE 81; RESP 18; O2SAT 100
== END | disposition home or self-care (01) ==
LOC: HSDC 08:37
PROVIDERS: ATTEND Urology
DX: N13.8 Other obstructive and reflux uropathy (principal); C61 Malignant neoplasm of prostate
CPT/HCPCS: 00910; 52310; 85025; J0690; J2250; J2370; J2405; J3010; J7120; Q9958

== ENCOUNTER → 2016-08-27 | Outpatient (CLI) | payer MEDICARE, OTHER ==
[~2016-08-27] MED LIST changes: -CHLORHEXIDINE GLUCONATE 2 % 1 PACK (2 CLOTHS) TOPICAL PRN; -DIATRIZOATE MEG 30% 300 ML BOTTLE (for RAD DIAG) URETHRAL ONE; -DO NOT ADM ANY ANTICOAGULANT DRUGS PRN; -FAMOTIDINE 20 MG/2 ML VIAL ONE; -INSULIN HUMAN REGULAR 1,000 UNITS/10 ML VIAL SQ PRN; -LACTATED RINGER'S 1000 ML IV PRN; -METOPROLOL TARTRATE 25 MG TAB PO PRN; -MIDAZOLAM HCL 2 MG/2 ML VIAL ONE; -ONDANSETRON HCL 4 MG/2 ML VIAL IV PUSH ONE; -ONDANSETRON HCL 4 MG/2 ML VIAL IV PUSH PRN; -PHENYLEPH/NS 1000 MCG/10 ML SYR IV ONE; -POVIDONE IODINE 5% (ANTISEPSIS KIT) 4 APPLICATIONS EACH NARE PRN; -PROPOFOL 200 MG/20 ML AMP IV ONE; -SODIUM CHLORID 0.9% 500 ML IV PRN; -ceFAZolin 1,000 MG/NS 100 ML IV SCH; -fentaNYL CITRATE 250 MCG/5 ML AMP ONE
== END ==
LOC: CLAB 14:41
PROVIDERS: ATTEND Urology
DX: Z85.46 Personal history of malignant neoplasm of prostate (principal)
CPT/HCPCS: 36415; 84153

== ENCOUNTER 2016-11-19 09:20 | Inpatient (IN) | payer MEDICARE, OTHER ==
[2016-11-18] MEDS: ACETAMINOPHEN/HYDROcodone 325 MG/5 MG TAB PO PRN (23:45)
[~2016-11-19] VITALS: Ht 170.2 cm; Wt 108.0 kg
[2016-11-19 09:22] VITALS: BP 161/69; PULSE 91; RESP 20; TEMP 99.7; O2SAT 96
--- NOTE | 2016-11-19 10:00 | RADRPT ---
EXAM DATE/TIME: 11/19/2016 09:33 [facility] COMPARISON: CHEST SINGLE AP, February 26, 2014, 3:24. INDICATIONS : Cough for 3 weeks. MEDICAL HISTORY : Seizures. Hypertension. SURGICAL HISTORY : None. ENCOUNTER: Initial ACUITY: 3 weeks PAIN SCORE: 2/10 LOCATION: Bilateral chest FINDINGS: 2 AP erect portable views of the chest were obtained and demonstrating a new cavitary mass in the rig ht upper lobe. The cavity measures up to 2.7 x 2.8 cm in diameter and the surrounding rim of soft tis ruben measures up to at least 1.2 cm. In total the mass measures up to approximately 5.1 x 5.7 cm. The left lung is clear. The heart and mediastinal structures are within normal limits. There is no visual ized adenopathy. The bony structures are intact. There is no effusion. CONCLUSION: New cavitary mass in the right upper lobe. The differential diagnosis includes squamo us cell carcinoma and fungal infection. Yuri Kaminski MD on November 19, 2016 at 9:56 Board Certified Radiologist. This report was verified electronically.
[2016-11-19 10:03] LABS: AUTOMATED NEUTROPHIL # 5.7 TH/MM3 (1.8-7.7); BASOPHIL # 0.1 TH/MM3 (0-0.2); BASOPHIL % 0.9 % (0.0-2.0); EOSINOPHIL # 0.2 TH/MM3 (0-0.4); EOSINOPHIL % 1.9 % (0.0-4.0); HEMATOCRIT 31.8 % (39.0-51.0); HEMO FLAGS DIFF FINAL; LYMPH % 25.5 % (9.0-44.0); LYMPHOCYTE # 2.3 TH/MM3 (1.0-4.8); MEAN CELL VOLUME 88.4 FL (80.0-100.0); MEAN CORPUSCULAR HEMOGLOBIN 29.2 PG (27.0-34.0); MONO % 8.7 % (0.0-8.0); PLATELET COUNT 462 TH/MM3 (150-450); RED CELL DISTRIBUTION WIDTH 13.9 % (11.6-17.2); WHITE BLOOD COUNT 9.1 TH/MM3 (4.0-11.0)
[2016-11-19 10:24] LABS: ANION GAP 9 MEQ/L (5-15); BICARBONATE 24.8 MEQ/L (21.0-32.0); BLOOD UREA NITROGEN 8 MG/DL (7-18); CHLORIDE 102 MEQ/L (98-107); GLOMERULAR FILTRATION RATE 132 ML/MIN (>89); SODIUM (NA) 136 MEQ/L (136-145)
[2016-11-19 10:27] LABS: CREATINE KINASE 102 U/L (39-308)
--- NOTE | 2016-11-19 10:32 | PD ---
HPI Chief Complaint: Cold / Flu Symptoms Time Seen by Provider: 10:21 Travel History International Travel<30 days: No Contact w/Intl Traveler<30days: No Traveled to known affect area: No History of Present Illness HPI 46-year-old male with history of prostate cancer, hypertension, who presents here with 3 week history of cough. Patient now has hemoptysis. The patient reports feeling warm and reports night sweats. The patient states that they had a elderly person living with them that had a chronic cough. They state that she was an alcoholic and do not know whether or not she had tuberculosis or not. PFSH Past Medical History Arthritis: No Asthma: Yes Autoimmune Disease: No Blood Disorders: No Anxiety: No Depression: No Heart Rhythm Problems: No Cancer: Yes (PROSTATE CA) Cardiovascular Problems: No High Cholesterol: Yes Chemotherapy: No Chest Pain: No Congestive Heart Failure: No COPD: No Cerebrovascular Accident: No Diabetes: No Diminished Hearing: No Endocrine: No GERD: No Glaucoma: No Genitourinary: Yes (CATHETER IN PLACE POST PROSTATECTOMY) Headaches: No Hepatitis: No Hiatal Hernia: No Hypertension: Yes Immune Disorder: No Kidney Stones: No Musculoskeletal: Yes (BACK PAIN) Neurologic: Yes (SEIZURES SINCE A CHILD) Psychiatric: No Reproductive: No Respiratory: Yes (COPD, SLEEP APNEA, USES A CPAP MACHINE) Immunizations Current: Yes Migraines: No Myocardial Infarction: No Radiation Therapy: No Renal Failure: No Seizures: Yes Sickle Cell Disease: No Sleep Apnea: No Thyroid Disease: No Ulcer: No PNEUMOCCOCAL Vaccine (Year): 2 Past Surgical History Abdominal Surgery: No AICD: No Appendectomy: Yes (DENIES) Arteriovenous Shunt: No Body Medical Devices: HARDWARE IN R ANKLE Cardiac Surgery: No Cholecystectomy: No Ear Surgery: No Endocrine Surgery: No Eye Surgery: No Genitourinary Surgery: Yes (RADICAL PROSTATECTOMY) Gynecologic Surgery: No Insulin Pump: No Joint Replacement: No Oral Surgery: No Pacemaker: No Thoracic Surgery: No Other Surgery: Yes Social History Alcohol Use: No Tobacco Use: Yes Substance Use: No Allergies-Medications (Allergen,Severity, Reaction): Coded Allergies: morphine (Unverified Allergy, Severe, Itching, 11/18/16) *MDRO Multi-Drug Resistant Organism (Verified Adverse Reaction, Unknown, ) 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 Reported Meds & Prescriptions Reported Meds & Active Scripts Active Cialis (Tadalafil) 5 Mg Tab 5 Mg PO DAILY Do not exceed 1 dose/day. Ditropan (Oxybutynin Chloride) 5 Mg Tab 5 Mg PO Q12HR Pyridium (Phenazopyridine HCl) 100 Mg Tab 100 Mg PO Q8H PRN Reported Lisinopril 20 Mg Tab 20 Mg PO DAILY Crestor (Rosuvastatin Calcium) 40 Mg Tab 40 Mg PO HS Tegretol (Carbamazepine) 200 Mg Tab 600 Mg PO BID Review of Systems Except as stated in HPI: all other systems reviewed are Neg General / Constitutional: Positive: Fever, No: Chills (night sweats) HENT: No: Headaches, Neck Pain Cardiovascular: No: Chest Pain or Discomfort, Palpitations Respiratory: Positive: Cough, Wheezing, Hemoptysis (with hemoptysis) Gastrointestinal: No: Nausea, Vomiting, Abdominal Pain Genitourinary: Positive: Incontinence (since prostatectomy), No: Dysuria Musculoskeletal: No: Myalgias, Weakness, Pain Neurologic: No: Weakness, Dizziness, Headache Physical Exam Narrative GENERAL: Well developed well-nourished male in no acute respiratory distress. SKIN: Focused skin assessment warm/dry. HEAD: Atraumatic. Normocephalic. EYES: Pupils equal and round. No scleral icterus. No injection or drainage. NECK: Trachea midline. No JVD. Supple. CARDIOVASCULAR: Regular rate and rhythm. No murmur appreciated. RESPIRATORY: No accessory muscle use. Wheezing heard at the right upper lung field. No Rales or rhonchi. Left lung field clear. GASTROINTESTINAL: Abdomen soft, non-tender, nondistended. MUSCULOSKELETAL: No obvious deformities. No clubbing. No cyanosis. No edema. NEUROLOGICAL: Awake and alert. No obvious cranial nerve deficits. Motor grossly within normal limits. Normal speech. PSYCHIATRIC: Appropriate mood and affect; insight and judgment normal. Data Data Last Documented VS Vital Signs Date Time Temp Pulse Resp B/P Pulse Ox O2 Delivery O2 Flow Rate FiO2 11/19/16 09:22 99.7 91 20 161/69 96 Room Air Orders Complete Blood Count With Diff (11/19/16 09:25) Basic Metabolic Panel (Bmp) (11/19/16 09:25) Ckmb (Isoenzyme) Profile (11/19/16 09:25) Troponin I (11/19/16 09:25) Blood Culture (11/19/16 09:31) Chest, Single Ap (11/19/16 09:25) Myco Tuberculosis/Rif Pcr (11/19/16 10:21) CKMB (11/19/16 09:35) CKMB% (11/19/16 09:35) Admit Order (Ed Use Only) (11/19/16 11:37) Labs Laboratory Tests Test 11/19/16 09:35 White Blood Count 9.1 TH/MM3 Red Blood Count 3.60 MIL/MM3 Hemoglobin 10.5 GM/DL Hematocrit 31.8 % Mean Corpuscular Volume 88.4 FL Mean Corpuscular Hemoglobin 29.2 PG Mean Corpuscular Hemoglobin 33.0 % Concent Red Cell Distribution Width 13.9 % Platelet Count 462 TH/MM3 Mean Platelet Volume 6.2 FL Neutrophils (%) (Auto) 63.0 % Lymphocytes (%) (Auto) 25.5 % Monocytes (%) (Auto) 8.7 % Eosinophils (%) (Auto) 1.9 % Basophils (%) (Auto) 0.9 % Neutrophils # (Auto) 5.7 TH/MM3 Lymphocytes # (Auto) 2.3 TH/MM3 Monocytes # (Auto) 0.8 TH/MM3 Eosinophils # (Auto) 0.2 TH/MM3 Basophils # (Auto) 0.1 TH/MM3 CBC Comment DIFF FINAL Differential Comment Sodium Level 136 MEQ/L Potassium Level 4.0 MEQ/L Chloride Level 102 MEQ/L Carbon Dioxide Level 24.8 MEQ/L Anion Gap 9 MEQ/L Blood Urea Nitrogen 8 MG/DL Creatinine 0.77 MG/DL Estimat Glomerular Filtration 132 ML/MIN Rate Random Glucose 124 MG/DL Calcium Level 9.0 MG/DL Total Creatine Kinase 102 U/L Creatine Kinase MB LESS THAN 0.5 NG/ML Troponin I LESS THAN 0.02 NG/ML MDM Medical Decision Making Medical Screen Exam Complete: Yes Emergency Medical Condition: Yes Differential Diagnosis Tuberculosis versus cancer versus pneumonia versus fungal infection Narrative Course 46-year-old male presents with hemoptysis and cough 3 weeks. Patient also reports fevers and night sweats. The patient has a cavitary lesion noted in his right upper lung. There is questionable history of exposure to someone with a chronic cough that possibly could've had TB. He is in reverse isolation precaution. He will be admitted to the hospital. There is a call out to the [facility] service. Diagnosis Primary Impression: right upper lung cavitary lesion Additional Impressions: Cough with hemoptysis History of hypertension History of prostate cancer Admitting Information Admitting Physician Requests: Admit Latrell Montano MD Nov 19, 2016 10:32
[2016-11-19 10:39] LABS: CKMB LESS THAN 0.5 NG/ML (0.5-3.6)
[2016-11-19] MEDS ORDERED: LACTULOSE SYRUP 20 GM/30 ML CUP PO PRN (12:00)
[2016-11-19] MEDS ORDERED: ONDANSETRON HCL 4 MG/2 ML VIAL IVP PRN (12:00)
[2016-11-19] MEDS ORDERED: NALOXONE HCL 0.4 MG/ML AMP IV PRN (12:00)
[2016-11-19] MEDS ORDERED: BISACODYL 10 MG SUPP RECTAL PRN (12:00)
[2016-11-19] MEDS ORDERED: SODIUM CHLORIDE 0.9% FLUSH 10 ML FLUSH IV FLUSH PRN (12:00)
[2016-11-19] MEDS ORDERED: PHENAZOPYRIDINE HCL 100 MG TAB PO PRN (12:00)
[2016-11-19] MEDS ORDERED: SENNOSIDES 8.6 MG TAB PO PRN (12:00)
[2016-11-19] MEDS ORDERED: MAGNESIUM HYDROXIDE SUSP 30 ML CUP PO PRN (12:00)
[2016-11-19] MEDS ORDERED: hydrALAZINE HCL 20 MG/ML VIAL IV PRN (12:15)
--- NOTE | 2016-11-19 12:18 | HHI.HP ---
HPI Service Family Medicine Primary Care Physician No Primary Care Physician Admission Diagnosis cough with hemoptysis, r/o tb, htn, hx of prostrate cancer Diagnoses: International Travel<30 Days: No Contact w/Intl Traveler<30days: No Known Affected Area: No History of Present Illness Pt is a 46 yo male who presented to the ED with cough. He is concerned because he and his girlfriend were recently helping out an older (55yo) for about a month because her home got condemned because of filthiness. She started coughing really bad when she moved in. They thought it was a cold. It was a really hard hacking cough. She refused to go to the hospital. They made her move out about 2 weeks ago because of her refusal to help out. His cough started 3 weeks ago. He describes it as a simple cough. It would get worse when he would lay on his right side at night which caused him to keep coughing and not able to breathe. He would sometimes cough up blood. There were a few drops of blood in sputum. He described the sputum as yellow and brown. It also created a foul taste in his mouth. No fever, but had chills at night. However, he would have night sweats that also started 2 weeks ago. Had chest pain in his right chest when he would cough that started last week. He frequently comes in contact with the homeless when they come in his home. He stays in a rooming house. No cave diving, no bat droppings contact, no [place] travel. (Lana Okeefe MD R1) Review of Systems Constitutional: COMPLAINS OF: Diaphoretic episodes (at night), Chills (at night ), DENIES: Fever, Weight loss Eyes: DENIES: Blurred vision, Photosensitivity Ears, nose, mouth, throat: COMPLAINS OF: Throat pain (from coughing), DENIES: Tinnitus, Vertigo Respiratory: COMPLAINS OF: Cough, Wheezing (from asthma), Hemoptysis, Sputum production, Shortness of breath (after coughing) Cardiovascular: COMPLAINS OF: Chest pain, DENIES: Palpitations, Syncope Gastrointestinal: COMPLAINS OF: Nausea, DENIES: Abdominal pain, Black stools, Bloody stools, Vomiting Genitourinary: DENIES: Urinary frequency Musculoskeletal: DENIES: Muscle aches Neurologic: COMPLAINS OF: Headache, DENIES: Localized weakness, Paresthesias Psychiatric: DENIES: Depression (Lana Okeefe MD R1) Past Family Social History Past Medical History Asthma: diagnosed when a child Epilepsy: since a child HTN Hyperlipidemia Past Surgical History Prostate biopsy to check for prostate cancer- 2016 Reported Medications Unknown inhaler for asthma Tegatol for Epilepsy Unknown med for HTN Statin for hyperlipidemia (Lana Okeefe MD R1) Allergies: Coded Allergies: morphine (Unverified Allergy, Severe, Itching, 11/18/16) *MDRO Multi-Drug Resistant Organism (Verified Adverse Reaction, Unknown, ) 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 Active Ordered Medications Current Medications Medications (Trade) Dose Ordered Sig/Christiano Route Start Time Stop Time Status Last Admin (NS 1000 ml Inj) 1,000 ml @ 125 mls/hr Q8H IV 11/19/16 11:52 11/19/16 13:06 (NS Flush) 2 ml UNSCH PRN IV FLUSH 11/19/16 12:00 (NS Flush) 2 ml BID IV FLUSH 11/19/16 21:00 (Tylenol) 650 mg Q4H PRN PO 11/19/16 12:00 11/19/16 13:15 (Zofran Inj) 4 mg Q6H PRN IVP 11/19/16 12:00 (Heparin Inj) 5,000 units Q12H SQ 11/19/16 12:00 11/19/16 13:08 (Narcan Inj) 0.4 mg UNSCH PRN IV 11/19/16 12:00 (Camila-Colace) 1 tab BID PO 11/19/16 21:00 (Milk Of Magnesia Liq) 30 ml Q12H PRN PO 11/19/16 12:00 (Senokot) 17.2 mg Q12H PRN PO 11/19/16 12:00 (Dulcolax Supp) 10 mg DAILY PRN RECTAL 11/19/16 12:00 (Lactulose Liq) 30 ml DAILY PRN PO 11/19/16 12:00 (TEGretol) 600 mg BID PO 11/19/16 21:00 (Prinivil) 20 mg DAILY PO 11/20/16 09:00 (Ditropan) 5 mg Q12HR PO 11/19/16 21:00 (Pyridium) 100 mg Q8H PRN PO 11/19/16 12:00 (Lipitor) 80 mg HS PO 11/19/16 21:00 (Catapres) 0.1 mg Q6H PRN PO 11/19/16 15:45 Family History Mother- of natural causes at 67, HTN Father- of natural causes in his 70s, Alzheimers, HTN Siblings- healthy Social History Lives in a 6 bedroom rooming house with his girlfriend, other people live in the other rooms Alcohol- none Smokes 2 packs a day for 30 years. Is open to quitting Drugs- Marijuana everyday, 2-3 joints a day (Lana Okeefe MD R1) Physical Exam Vital Signs Vital Signs Date Time Temp Pulse Resp B/P Pulse Ox O2 Delivery O2 Flow Rate FiO2 11/19/16 09:22 99.7 91 20 161/69 96 Room Air Physical Exam GENERAL: This is a well-nourished, well-developed patient, sitting on the side of the bed, in no apparent distress. SKIN: No rashes, ecchymoses or lesions. Cool and dry. HEAD: Atraumatic. Normocephalic. No temporal or scalp tenderness. EYES: Pupils equal round and reactive. Extraocular motions intact. No scleral icterus. No injection or drainage. ENT: Nose without bleeding, purulent drainage or septal hematoma. Throat without erythema, tonsillar hypertrophy or exudate. Uvula midline. Airway patent. NECK: Trachea midline. No JVD or lymphadenopathy. Supple, nontender, no meningeal signs. CARDIOVASCULAR: Regular rate and rhythm without murmurs, gallops, or rubs. RESPIRATORY: Course breath sounds bilaterally more pronounced on right, diffuse wheezing. E to A changes on right. Breath sounds equal bilaterally. No wheezes, rales, or rhonchi. GASTROINTESTINAL: Abdomen soft, non-tender, nondistended. No hepato-splenomegaly , or palpable masses. No guarding. MUSCULOSKELETAL: Extremities without clubbing, cyanosis, 1+ edema in right lower leg. No joint tenderness, effusion, or edema noted. No calf tenderness. Negative Homans sign bilaterally. NEUROLOGICAL: Awake and alert. Cranial nerves II through XII intact. Motor and sensory grossly within normal limits. Five out of 5 muscle strength in all muscle groups. Normal speech. Laboratory Laboratory Tests Test 11/19/16 09:35 White Blood Count 9.1 Red Blood Count 3.60 Hemoglobin 10.5 Hematocrit 31.8 Mean Corpuscular Volume 88.4 Mean Corpuscular Hemoglobin 29.2 Mean Corpuscular Hemoglobin 33.0 Concent Red Cell Distribution Width 13.9 Platelet Count 462 Mean Platelet Volume 6.2 Neutrophils (%) (Auto) 63.0 Lymphocytes (%) (Auto) 25.5 Monocytes (%) (Auto) 8.7 Eosinophils (%) (Auto) 1.9 Basophils (%) (Auto) 0.9 Neutrophils # (Auto) 5.7 Lymphocytes # (Auto) 2.3 Monocytes # (Auto) 0.8 Eosinophils # (Auto) 0.2 Basophils # (Auto) 0.1 CBC Comment DIFF FINAL Differential Comment Sodium Level 136 Potassium Level 4.0 Chloride Level 102 Carbon Dioxide Level 24.8 Anion Gap 9 Blood Urea Nitrogen 8 Creatinine 0.77 Estimat Glomerular Filtration 132 Rate Random Glucose 124 Calcium Level 9.0 Total Creatine Kinase 102 Creatine Kinase MB LESS THAN 0.5 Troponin I LESS THAN 0.02 Date/Time Procedure Status Source Growth 11/19/16 09:30 Aerobic Blood Culture Received Blood Peripheral Pending 11/19/16 09:30 Anaerobic Blood Culture Received Blood Peripheral Pending (Lana Okeefe MD R1) Result Diagram: 11/19/1635 11/19/1635 Imaging Last Impressions Chest X-Ray 11/19/16924 Signed Impressions: Service Date/Time: Saturday, November 19, 2016 09:33 - CONCLUSION: New cavitary mass in the right upper lobe. The differential diagnosis includes squamous cell carcinoma and fungal infection. Yuri Kaminski MD (Lana Okeefe MD R1) Assessment and Plan Assessment and Plan Mr. Oliveira is a 46yo with a past medical history of HTN, asthma, epilepsy, and 60 pack year smoking history presenting to the ED for cough with hemoptysis of 3 week duration and possible TB exposure. Chest XR taken in the ED shows a cavitary lesion. He is being admitted to rule out TB vs fungal infection vs malignancy. Code Status Full code Discussed Condition With Dr. Mckenzie (R2) and Dr. Morley (attending) (Lana Okeefe MD R1) Attending Attestation THIS CASE WAS DISCUSSED WITH THE RESIDENT PHYSICIANS. I HAVE REVIEWED THE RECORD AND AGREE WITH THE ABOVE NOTE AND PLAN OF CARE WAS DISCUSSED. I HAVE AUTHORIZED THE ORDER FOR ADMISSION TO AN IN-PATIENT STATUS. (Rober Morley MD) Problem List: (1) Cough with hemoptysis Status: Acute Plan: 3 week duration with possible TB exposure 1.5 months ago. Pt has a long history of tobacco use which puts him as risk for a possible malignancy. -Chest XR- cavitary lesion -ID consult, appreciate recs * Spoke with ID on the phone, advised us to hold off on antibiotics until we get cultures back. -Sputum AFB cultures collected -Myco/Tuberculosis PCR ordered -Placed on droplet precautions/isolation (2) Asthma Status: Chronic Plan: Diffuse wheezing on exam -Duonebs q4hrs scheduled -Albuterol nebs 2.5mg q2hr prn (3) Hypertension, benign Status: Chronic Plan: -Lisinopril 20mg everyday po -Hydralazine 10mg IV q6h PRN (4) Epilepsy Status: Chronic Plan: Continue at home regimen - Tegretol 600mg po BID (5) History of prostate cancer Status: Chronic Plan: Continue at home meds -Oxybutynin Chloride 5mg po q12hr -Phenazopyridine HCl 100mg po q8hr (6) Hyperlipemia Status: Chronic Plan: Continue at home meds -Atorvastatin 80mg po HS (7) Normocytic anemia Status: Chronic Plan: Hemoglobin of 10.5 -stable from July 2016 (8) FEN Status: Acute Plan: Fluids -IV normal saline Electrolytes -Monitor and replace as needed Nutrition -Regular Diet GI prophylaxis -PRN DVT prophylaxis -Heparin (Lana Okeefe MD R1) Physician Certification 2 Midnight Certification Type: Admission for Inpatient Services Order for Inpatient Services The services are ordered in accordance with Medicare regulations or non- Medicare payer requirements, as applicable. In the case of services not specified as inpatient-only, they are appropriately provided as inpatient services in accordance with the 2-midnight benchmark. Estimated LOS (days): 3 days is the estimated time the patient will need to remain in the hospital, assuming treatment plan goals are met and no additional complications. Post-Hospital Plan: Home (Lana Okeefe MD R1) Problem Qualifiers (1) Asthma: Qualified Code: J45.909 - Uncomplicated asthma, unspecified asthma severity (2) Epilepsy: Lana Okeefe MD R1 Nov 19, 2016 12:18 Rober Morley MD Nov 20, 2016 11:21
[2016-11-19] MEDS ORDERED: RESP: ALBUTEROL 2.5 MG/3 ML NEB (PRN) INH (12:30)
[2016-11-19] MEDS: SODIUM CHLOR 0.9% 1000 ML INJ 1,000 ML IV SCH ×2 (13:06→19:52)
[2016-11-19] MEDS: HEPARIN SODIUM - SQ 10,000 UNITS/ML VIAL SQ SCH ×2 (13:08→22:36)
[2016-11-19 13:09] VITALS: BP 147/67; PULSE 72; RESP 16; O2SAT 100
[2016-11-19] MEDS: ACETAMINOPHEN 325 MG TAB PO PRN (13:15)
[2016-11-19] MEDS ORDERED: cloNIDine HCL 0.1 MG TAB PO PRN (15:45)
[2016-11-19] MEDS: RESP: ALBUTEROL 2.5 MG/IPRATROPIUM 0.5 MG NEB (SCH) INH (16:08)
[2016-11-19 16:19] LABS: M. TUBERCULOSIS PCR NOT DETECTED (NOT DETECT)
[2016-11-19 17:14] VITALS: BP 134/71; PULSE 72; RESP 18; TEMP 97.5; O2SAT 98
--- NOTE | 2016-11-19 19:41 | MB ---
cc: CLEMENTE JORDAN MD DATE OF CONSULTATION 11/19/[address] Mckenzie REASON FOR CONSULTATION A 46-year-old male with possible TB. HISTORY OF PRESENT ILLNESS This is a 46-year-old black male who presented to the emergency department with cold and flu-like symptoms. The patient states that he has been coughing up blood. He notes that he has been coughing for about 3 weeks and also notes that he has been having night sweats. The patient states that he has been helping an elderly woman at her home for the past month and she has a chronic cough, particularly at night time. They were concerned about her and asked for her to go to the hospital but she declined. It is felt that she may have had a history of tuberculosis in the past. The patient denies exposure to any person with TB besides. The patient is also a heavy smoker. He smokes two packs of cigarettes a day. He denies weight loss, fevers or chills. The patient is on disability because of seizures. PAST MEDICAL HISTORY Asthma, seizure disorder, hypertension, hyperlipidemia. MEDICATIONS 1. Albuterol nebulizers. 2. Ditropan. 3. Lipitor. 4. Tegretol. 5. Prinivil. ALLERGIES MORPHINE. SOCIAL HISTORY The patient smokes two packs of cigarettes a day. No alcohol. Positive marijuana use. The patient is disabled FAMILY HISTORY Noncontributory. REVIEW OF SYSTEMS CONSTITUTIONAL: No fever or chills. HEAD, EARS, NOSE AND THROAT: No visual blurring or diplopia. No difficulty swallowing. No soreness of the throat. NECK: No neck pain or neck swelling. CARDIOVASCULAR: No palpitation. RESPIRATORY: Significant for cough, hemoptysis and pleuritic pain at the anterior chest. GASTROINTESTINAL: No nausea or vomiting or diarrhea or abdominal pain. GENITOURINARY: No urgency, frequency or dysuria. ENDOCRINE: No polyuria, polydipsia. MUSCULOSKELETAL: No muscle aches or pains. HEMATOPOIETIC: No easy bruising or bleeding. NEUROLOGIC: No problems with coordination or dizziness. PSYCHIATRIC: No depression or mood changes. PHYSICAL EXAMINATION GENERAL: This is a pleasant well-developed male who is in no acute distress. He is awake and alert and oriented. VITAL SIGNS: Include temperature 99.7, BP 147/67, respirations 16, heart rate 72. HEENT: Head is atraumatic. Extraocular movements grossly intact, sclera is pale. Pupils reactive to light. Oropharynx moist mucosa without lesions. NECK: Supple. No adenopathy or swelling or tenderness. LUNGS: Decreased breath sounds throughout. HEART: Regular S1-S2 without audible murmurs, rubs or gallops. ABDOMEN: Bowel sounds present, diminished bowel sounds, soft, nontender. RECTAL: Not performed. EXTREMITIES: Trace edema of the tibias bilateral. SKIN: No rash. NEURO: No gross focal findings. PSYCHIATRIC: The patient is calm and cooperative. LABORATORY DATA WBC 9.1, platelet count 462, hemoglobin 10.5, 63% neutrophils, 22% lymphocytes, 8% monocytes, creatinine 0.77, BUN 8, sodium 136. IMPRESSION Pneumonia. Chest x-ray showing new cavitary mass in the right upper lobe. The patient may have been exposed to tuberculosis. The patient is also a heavy smoker and is at risk for lung malignancy as well. However, given his description of night sweats in addition to the hemoptysis and exposure to someone with a significant cough he likely has pneumonia, possibly tuberculosis. The patient notes that he has been tested for HIV last 3 months ago and has been negative. If the sputum culture which show will be obtained comes back showing tuberculosis he should have another HIV test. RECOMMENDATIONS 1. Obtain sputum culture for AFB x3. 2. Obtain routine sputum culture and Gram stains. 3. Monitor without anti-TB medications for now. 4. Monitor clinical status. Thank you for this consultation. The patient's progress will be monitored and further recommendations will be given upon followup. Clemente Jordan MD FD/VALERI /4:12 PM /7:16 PM
[2016-11-19 20:00] VITALS: BP 139/65; PULSE 77; RESP 20; TEMP 98.7; O2SAT 99
[2016-11-19] MEDS: SODIUM CHLORIDE 0.9% FLUSH 10 ML FLUSH IV FLUSH SCH (21:00)
[2016-11-19] MEDS: ATORVASTATIN 80 MG TAB PO SCH (22:34)
[2016-11-19] MEDS: DOCUSATE SODIUM 50 MG/SENNA 8.6 MG TAB PO SCH (22:34)
[2016-11-19] MEDS: carBAMazepine 200 MG TAB PO SCH (22:34)
[2016-11-19] MEDS: OXYBUTYNIN CHLORIDE 5 MG TAB PO SCH (22:34)
[2016-11-20] VITALS (7 sets, daily range): BP systolic 115–137; BP diastolic 53–62; PULSE 62–85; RESP 18–20; TEMP 97–100.5; O2SAT 95–99
[2016-11-20] MEDS: SODIUM CHLOR 0.9% 1000 ML INJ 1,000 ML IV SCH ×3 (03:52→20:12)
[2016-11-20] MEDS: ACETAMINOPHEN/HYDROcodone 325 MG/5 MG TAB PO PRN ×4 (05:21→20:13)
[2016-11-20 06:16] LABS: AUTOMATED NEUTROPHIL # 4.2 TH/MM3 (1.8-7.7); BASOPHIL # 0.1 TH/MM3 (0-0.2); BASOPHIL % 1.2 % (0.0-2.0); EOSINOPHIL # 0.2 TH/MM3 (0-0.4); EOSINOPHIL % 2.9 % (0.0-4.0); HEMATOCRIT 29.2 % (39.0-51.0); HEMO FLAGS DIFF FINAL; LYMPH % 33.5 % (9.0-44.0); LYMPHOCYTE # 2.7 TH/MM3 (1.0-4.8); MEAN CELL VOLUME 87.2 FL (80.0-100.0); MEAN CORPUSCULAR HEMOGLOBIN 29.4 PG (27.0-34.0); MEAN CORPUSCULAR HGB CONC 33.7 % (32.0-36.0); MONO % 10.8 % (0.0-8.0); NEUT % 51.6 % (16.0-70.0); PLATELET COUNT 387 TH/MM3 (150-450); RED BLOOD COUNT 3.34 MIL/MM3 (4.50-5.90); RED CELL DISTRIBUTION WIDTH 13.7 % (11.6-17.2); WHITE BLOOD COUNT 8.1 TH/MM3 (4.0-11.0)
[2016-11-20 06:51] LABS: BICARBONATE 26.2 MEQ/L (21.0-32.0); POTASSIUM 4.1 MEQ/L (3.5-5.1)
[2016-11-20] MEDS: DOCUSATE SODIUM 50 MG/SENNA 8.6 MG TAB PO SCH ×2 (07:55→20:13)
[2016-11-20] MEDS: OXYBUTYNIN CHLORIDE 5 MG TAB PO SCH ×2 (07:56→20:11)
[2016-11-20] MEDS: SODIUM CHLORIDE 0.9% FLUSH 10 ML FLUSH IV FLUSH SCH ×2 (07:56→20:11)
[2016-11-20] MEDS: LISINOPRIL 20 MG TAB PO SCH (07:56)
[2016-11-20] MEDS: RESP: ALBUTEROL 2.5 MG/IPRATROPIUM 0.5 MG NEB (SCH) INH ×4 (07:57→20:57)
--- NOTE | 2016-11-20 08:18 | HHI.FPPN ---
Subjective Remarks FM Attending Note: Patient seen and examined. S: Chart and all resident physician notes reviewed. In summary this is a 46 year old male who was admitted with an admission diagnosis of Cold / Flu Like with cavitary lesion on CXR. This patient presented to the emergency room with a productive cough and congestion with reported hemoptysis. He denied fevers but did report some chills at night. He had recently been exposed to another individual who had a persistent hacking cough. On his evaluation in the emergency room he was noted to have a cavitary lesion in his right upper lobe and he is being admitted for evaluation of possible tuberculosis versus other significant pulmonary condition. Since his admission last night no significant change has occurred. He denies any fever or shortness of breath. His sputum tuberculin DNA PCR results are not detected. Objective Vitals Vital Signs Date Time Temp Pulse Resp B/P Pulse Ox O2 Delivery O2 Flow Rate FiO2 11/20/16 08:07 98 11/20/16 00:00 99.0 76 20 137/62 97 11/19/16 20:00 98.7 77 20 139/65 99 11/19/16 17:14 97.5 72 18 134/71 98 11/19/16 13:52 100 Room Air 11/19/16 13:09 72 16 147/67 100 Room Air 11/19/16 09:22 99.7 91 20 161/69 96 Room Air I/O 11/19/16 11/19/16 11/19/16 11/20/16 11/20/16 11/20/16 06:59 14:59 22:59 06:59 14:59 22:59 Intake Total 950 ml 1275 ml Balance 950 ml 1275 ml Intake Oral 360 ml 380 ml IV Total 590 ml 895 ml # Voids 2 2 Result Diagram: 11/20/16 0432 11/20/16 0432 Other Results Item Value Date Time M. tuberculosis Complex DNA (PCR) NOT DETECTED 11/19/16 1230 Monocytes (%) (Auto) 8.7 % H 11/19/16 0935 Total Creatine Kinase 102 U/L 11/19/16 0935 Creatine Kinase MB LESS THAN 0.5 NG/ML L 11/19/16 0935 Troponin I LESS THAN 0.02 NG/ML L 11/19/16 0935 Urine Specific [place] 1.011 11/20/16 1100 Urine Nitrite NEG 11/20/16 1100 Urine Leukocyte Esterase NEG 11/20/16 1100 Urine RBC LESS THAN 1 /hpf 11/20/16 1100 Urine WBC 1 /hpf 11/20/16 1100 Imaging Last 48 hours Impressions Chest X-Ray 11/19/16 0925 Signed Impressions: Service Date/Time: Saturday, November 19, 2016 09:33 - CONCLUSION: New cavitary mass in the right upper lobe. The differential diagnosis includes squamous cell carcinoma and fungal infection. Yuri Kaminski MD Objective Remarks O. CONSTITUTIONAL/GEN: normally nourished, in NAD. EYES: conjunctiva normal, PERRLA, EOMI. ENT: Mouth and pharynx normal. NECK: thyroid midline, carotids symmetrical. LUNGS: course rhonchi right chest anterior and posterior, respiratory effort is normal. CARDIOVASCULAR: RR without murmur or gallop. No significant edema. GI/ABD: soft without masses, without organomegaly. : no CVA tenderness NEURO: No focal deficits. SKIN: color normal, no rashes noted. HEME/LYMPH: no bruising, petechia or significant adenopathy MUSC: back is normal in appearance. Extremities are normal in appearance. PSYCH/MENTAL STATUS: Alert and oriented x 3. A/P Assessment and Plan Mr. Oliveira is a 46yo with a past medical history of HTN, asthma, epilepsy, and 60 pack year smoking history presenting to the ED for cough with hemoptysis of 3 week duration and possible TB exposure. Chest XR taken in the ED shows a cavitary lesion. He is being admitted to rule out TB vs fungal infection vs malignancy. Problem List: (1) Cough with hemoptysis Status: Acute Plan: 3 week duration with possible TB exposure 1.5 months ago. Pt has a long history of tobacco use which puts him as risk for a possible malignancy. -Chest XR- cavitary lesion -ID consult, appreciate recs * Spoke with ID on the phone, advised us to hold off on antibiotics until we get cultures back. -Sputum AFB cultures collected -Myco/Tuberculosis PCR ordered -Placed on droplet precautions/isolation 11/20/16 Tuberculosis DNA PCR test is negative. Infectious disease consultation has been requested. If TB is ruled out will need further investigation of cavitary mass in the right upper lobe; probable pulmonary consultation. (2) Asthma Status: Chronic Plan: Diffuse wheezing on exam -Duonebs q4hrs scheduled -Albuterol nebs 2.5mg q2hr prn (3) Hypertension, benign Status: Chronic Plan: -Lisinopril 20mg everyday po -Hydralazine 10mg IV q6h PRN (4) Epilepsy Status: Chronic Plan: Continue at home regimen - Tegretol 600mg po BID (5) History of prostate cancer Status: Chronic Plan: Continue at home meds -Oxybutynin Chloride 5mg po q12hr -Phenazopyridine HCl 100mg po q8hr (6) Hyperlipemia Status: Chronic Plan: Continue at home meds -Atorvastatin 80mg po HS (7) Normocytic anemia Status: Chronic Plan: Hemoglobin of 10.5 -stable from July 2016 (8) FEN Status: Acute Plan: Fluids -IV normal saline Electrolytes -Monitor and replace as needed Nutrition -Regular Diet GI prophylaxis -PRN DVT prophylaxis -Heparin Problem Qualifiers (1) Asthma: Qualified Code: J45.909 - Uncomplicated asthma, unspecified asthma severity (2) Epilepsy: Rober Morley MD Nov 20, 2016 08:18
[2016-11-20] MEDS: carBAMazepine 200 MG TAB PO SCH ×2 (09:27→20:11)
[2016-11-20 11:20] LABS: BLOOD, URINE NEG (NEG); COMMENT (UR) CULT NOT INDICATED; CULTURE IF INDICATED CULT NOT INDICATED; GLUCOSE,URINE NEG (NEG); KETONE, URINE NEG (NEG); MUCUS URINE FEW /lpf (OCC); NITRITE,URINE NEG (NEG); URINE COLOR YELLOW (YELLW/STRAW)
[2016-11-20] MEDS: HEPARIN SODIUM - SQ 10,000 UNITS/ML VIAL SQ SCH ×2 (12:56→23:52)
[2016-11-20] MEDS ORDERED: TUBERCULIN, PPD 5 UNITS/0.1 ML SYRINGE I-DERMAL ONE (16:00)
--- NOTE | 2016-11-20 16:25 | HHI.IDPN ---
Note Infectious Disease Note Patient feels okay. Still has cough. Denies hemoptysis. Notes that chest pain is less. Appetite is okay. Sputum AFB stain pending. Admitted with cold and flu-like symptoms. The patient has had cough for about 3 weeks with hemoptysis and night sweats. PAST MEDICAL HISTORY Asthma, seizure disorder, hypertension, hyperlipidemia. Current Medications Medications (Trade) Dose Ordered Sig/Christiano Route PRN Reason Start Time Stop Time Status Last Admin Dose Admin Sodium Chloride (NS 1000 ml Inj) 1,000 ml @ 125 mls/hr Q8H IV 11/19/16 11:52 11/20/16 12:56 Sodium Chloride (NS Flush) 2 ml UNSCH PRN IV FLUSH FLUSH AFTER USING IV ACCESS 11/19/16 12:00 Sodium Chloride (NS Flush) 2 ml BID IV FLUSH 11/19/16 21:00 Acetaminophen (Tylenol) 650 mg Q4H PRN PO TEMP>101F, PAIN 1-2, HEADACHE 11/19/16 12:00 11/19/16 13:15 Ondansetron HCl (Zofran Inj) 4 mg Q6H PRN IVP NAUSEA OR VOMITING 11/19/16 12:00 Heparin Sodium (Porcine) (Heparin Inj) 5,000 units Q12H SQ 11/19/16 12:00 11/20/16 12:56 Naloxone HCl (Narcan Inj) 0.4 mg UNSCH PRN IV SEE LABEL COMMENTS 11/19/16 12:00 Senna/Docusate Sodium (Camila-Colace) 1 tab BID PO 11/19/16 21:00 11/20/16 07:55 Magnesium Hydroxide (Milk Of Magnesia Liq) 30 ml Q12H PRN PO MILD - MODERATE CONSTIPATION 11/19/16 12:00 Sennosides (Senokot) 17.2 mg Q12H PRN PO MODERATE - SEVERE CONSTIPATION 11/19/16 12:00 Bisacodyl (Dulcolax Supp) 10 mg DAILY PRN RECTAL SEVERE CONSITIPATION 11/19/16 12:00 Lactulose (Lactulose Liq) 30 ml DAILY PRN PO SEVERE CONSITIPATION 11/19/16 12:00 Carbamazepine (TEGretol) 600 mg BID PO 11/19/16 21:00 11/20/16 09:27 Lisinopril (Prinivil) 20 mg DAILY PO 11/20/16 09:00 11/20/16 07:56 Oxybutynin Chloride (Ditropan) 5 mg Q12HR PO 11/19/16 21:00 11/20/16 07:56 Phenazopyridine HCl (Pyridium) 100 mg Q8H PRN PO DYSURIA 11/19/16 12:00 Atorvastatin Calcium (Lipitor) 80 mg HS PO CM 11/19/16 21:00 11/19/16 22:34 Clonidine (Catapres) 0.1 mg Q6H PRN PO SEE LABEL COMMENTS 11/19/16 15:45 Acetaminophen/ Hydrocodone Bitart ([place] 5-325 Mg) 1 tab Q4H PRN PO pain 3 - 10 11/19/16 23:15 11/20/16 15:30 Miscellaneous Information (Skin Test Result) 1 Q24H .XX 11/21/16 16:00 11/23/16 16:01 ALLERGIES MORPHINE. OBJECTIVE: Vital Signs Date Time Temp Pulse Resp B/P Pulse Ox O2 Delivery O2 Flow Rate FiO2 11/20/16 12:00 97.1 71 18 134/61 99 11/20/16 08:07 98 11/20/16 08:00 97.0 62 19 130/59 98 11/20/16 08:00 96 4.00 11/20/16 00:00 99.0 76 20 137/62 97 11/19/16 20:00 98.7 77 20 139/65 99 11/19/16 17:14 97.5 72 18 134/71 98 Laboratory Tests Test 11/19/16 11/20/16 09:35 04:32 White Blood Count 9.1 TH/MM3 8.1 TH/MM3 Red Blood Count 3.60 MIL/MM3 3.34 MIL/MM3 Hemoglobin 10.5 GM/DL 9.8 GM/DL Hematocrit 31.8 % 29.2 % Mean Corpuscular Volume 88.4 FL 87.2 FL Mean Corpuscular Hemoglobin 29.2 PG 29.4 PG Mean Corpuscular Hemoglobin 33.0 % 33.7 % Concent Red Cell Distribution Width 13.9 % 13.7 % Platelet Count 462 TH/MM3 387 TH/MM3 Mean Platelet Volume 6.2 FL 6.8 FL Neutrophils (%) (Auto) 63.0 % 51.6 % Lymphocytes (%) (Auto) 25.5 % 33.5 % Monocytes (%) (Auto) 8.7 % 10.8 % Eosinophils (%) (Auto) 1.9 % 2.9 % Basophils (%) (Auto) 0.9 % 1.2 % Neutrophils # (Auto) 5.7 TH/MM3 4.2 TH/MM3 Lymphocytes # (Auto) 2.3 TH/MM3 2.7 TH/MM3 Monocytes # (Auto) 0.8 TH/MM3 0.9 TH/MM3 Eosinophils # (Auto) 0.2 TH/MM3 0.2 TH/MM3 Basophils # (Auto) 0.1 TH/MM3 0.1 TH/MM3 CBC Comment DIFF FINAL DIFF FINAL Differential Comment Laboratory Tests Test 11/19/16 11/20/16 09:35 04:32 Sodium Level 136 MEQ/L 138 MEQ/L Potassium Level 4.0 MEQ/L 4.1 MEQ/L Chloride Level 102 MEQ/L 105 MEQ/L Carbon Dioxide Level 24.8 MEQ/L 26.2 MEQ/L Anion Gap 9 MEQ/L 7 MEQ/L Blood Urea Nitrogen 8 MG/DL 7 MG/DL Creatinine 0.77 MG/DL 0.59 MG/DL Estimat Glomerular Filtration 132 ML/MIN 180 ML/MIN Rate Random Glucose 124 MG/DL 102 MG/DL Calcium Level 9.0 MG/DL 8.5 MG/DL Total Creatine Kinase 102 U/L Creatine Kinase MB LESS THAN 0.5 NG/ML Troponin I LESS THAN 0.02 NG/ML Microbiology Date/Time Procedure Status Source Growth 11/19/16 09:30 Aerobic Blood Culture - Preliminary Resulted Blood Peripheral NO GROWTH IN 1 DAY 11/19/16 09:30 Anaerobic Blood Culture - Preliminary Resulted Blood Peripheral NO GROWTH IN 1 DAY 11/19/16 09:30 Aerobic Blood Culture - Preliminary Resulted Blood Peripheral NO GROWTH IN 1 DAY 11/19/16 09:30 Anaerobic Blood Culture - Preliminary Resulted Blood Peripheral NO GROWTH IN 1 DAY 11/19/16 17:15 Acid Fast Stain Received Sputum Expectorated Sputum Pending 11/19/16 17:15 Mycobacterial Culture Received Sputum Expectorated Sputum Pending 11/19/16 22:30 Acid Fast Stain Received Sputum Expectorated Sputum Pending 11/19/16 22:30 Mycobacterial Culture Received Sputum Expectorated Sputum Pending 11/19/16 22:30 Acid Fast Stain Received Sputum Expectorated Sputum Pending 11/19/16 22:30 Mycobacterial Culture Received Sputum Expectorated Sputum Pending IMAGING: Chest X-Ray 11/19/16 0925 Signed Impressions: Service Date/Time: Saturday, November 19, 2016 09:33 - CONCLUSION: New cavitary mass in the right upper lobe. The differential diagnosis includes squamous cell carcinoma and fungal infection. Yuri Kaminski MD PHYSICAL EXAMINATION GENERAL: No acute distress. He is awake and alert and oriented. HEENT: Pupils reactive to light. Oropharynx moist mucosa without lesions. NECK: Supple. No adenopathy or swelling or tenderness. LUNGS: Decreased breath sounds throughout, rhonchi at the r. upper. HEART: Regular S1-S2 without audible murmurs, rubs or gallops. ABDOMEN: Bowel sounds present, diminished bowel sounds, soft, nontender. EXTREMITIES: Trace edema of the tibias bilateral. SKIN: No rash. NEURO: No gross focal findings. PSYCHIATRIC: Calm and cooperative. IMPRESSION Cavitary lung lesion/hemoptysis. Pneumonia vs TB vs fungal infection vs malignancy. RECOMMENDATIONS 1. Maintain airborne isolation. 2. Monitor sputum AFB. Micro to review smears tomorrow. 2. Obtain routine and fungal sputum culture and Gram stain. 3. Monitor without anti-TB medications for now. 4. Monitor clinical status. 5. May need bronchoscopy if the bacterial/fungal/AFB is negative to evaluate for malignancy. De Ren MD Nov 20, 2016 16:25
[2016-11-20] MEDS ORDERED: RESP: ALBUTEROL CONC 2.5 MG/0.5 ML NEB NEB SCH (19:30)
[2016-11-20] MEDS: ATORVASTATIN 80 MG TAB PO SCH (20:11)
[2016-11-20 21:13] LABS: AUTOMATED NEUTROPHIL # 5.1 TH/MM3 (1.8-7.7); BASOPHIL # 0.1 TH/MM3 (0-0.2); BASOPHIL % 0.7 % (0.0-2.0); EOSINOPHIL # 0.2 TH/MM3 (0-0.4); EOSINOPHIL % 2.5 % (0.0-4.0); HEMATOCRIT 29.3 % (39.0-51.0); HEMO FLAGS DIFF FINAL; LYMPH % 27.6 % (9.0-44.0); LYMPHOCYTE # 2.4 TH/MM3 (1.0-4.8); MEAN CELL VOLUME 88.3 FL (80.0-100.0); MEAN CORPUSCULAR HEMOGLOBIN 28.6 PG (27.0-34.0); MEAN CORPUSCULAR HGB CONC 32.4 % (32.0-36.0); MONO % 10.8 % (0.0-8.0); NEUT % 58.4 % (16.0-70.0); PLATELET COUNT 403 TH/MM3 (150-450); RED BLOOD COUNT 3.32 MIL/MM3 (4.50-5.90); RED CELL DISTRIBUTION WIDTH 13.8 % (11.6-17.2); WHITE BLOOD COUNT 8.7 TH/MM3 (4.0-11.0)
[2016-11-20 21:22] LABS: PROTHROMBIN TIME - PATIENT 11.2 SEC (9.8-11.6)
--- NOTE | 2016-11-20 21:35 | MB ---
cc: Yojana DOE M.D. DATE OF CONSULTATION 11/20/16 REASON FOR CONSULTATION Hemoptysis and cavitary lung lesions with COPD. HISTORY OF PRESENT ILLNESS This is a 46-year-old man who has been admitted to the emergency room with a cold and flu-like symptoms of bronchitis and mild hemoptysis. The patient apparently has been coughing for 2-3 weeks and has had some night sweats, weakness and wheezing. He was seen in the emergency room for his cough and a chest x-ray was done which showed a cavitary mass-like lesion in the right upper lobe. The patient does have a previous history for smoking and has had chronic bronchitis. He has had no significant chest pains or abdominal pains. PAST MEDICAL HISTORY The patient's past history has included history for a seizure disorder, history of hypertension and hyperlipidemia. PAST SURGICAL HISTORY Includes history for prostate cancer for which he underwent a prostatectomy about 2 months ago and apparently had an indwelling catheter briefly. He denies any history for diabetes. HABITS The patient smoked one to two packs per day, has done so for over 20 years, smokes marijuana. No history of alcohol use. FAMILY HISTORY Essentially noncontributory. MEDICATIONS List included: 1. Lipitor. 2. Ditropan. 3. Albuterol inhaler. 4. Tegretol. 5. Prinvil. REVIEW OF SYSTEMS The patient is overweight. He has cough, wheezing, postnasal drip. He has epigastric distress and cramping. He has urinary frequency and dysuria. He has no leg swelling or calf muscle pains. He has some joint pains of his extremities. PHYSICAL EXAMINATION GENERAL: This moderately obese middle-aged -[place] male who is alert, pale, in no acute distress. He is on oxygen. VITAL SIGNS: His blood pressure 130/80, pulse is 90, respirations 22, temperature 98.2. HEENT: Head normocephalic. Pupils are reactive and equal. Tongue is moist. Throat is injected. Nasal mucosa erythematous. NECK: No bruits or thyroid enlargement. CHEST: Distant breath sounds. Few coarse wheezes over the right lung field. No definite crackles. HEART: Heart sounds are regular S1-S2 with no murmur. No S3. ABDOMEN: The abdomen is soft and protuberant without masses or organomegaly or tenderness. Bowel sounds are active. EXTREMITIES: No lesions. No edema. Reflexes are 1+ with no gross motor deficits. NEURO: Cranial nerves grossly intact. SKIN: Skin showed no lesions. IMPRESSION 1. Cavitary lesion right upper lobe, rule out tuberculosis versus fungal disease. 2. Rule out malignancy. 3. He has COPD with chronic bronchitis and acute exacerbation. 4. History of hypertension. 5. History of prostate cancer. PLAN The patient will be continued on nebulized DuoNeb solution q.i.d. He was advised that a bronchoscopy will be necessary to evaluate the right upper lobe density and to get cultures for AFB and fungus and bacteria as well as cytology. A pulmonary function study will be done at bedside. The patient is presently being evaluated by infectious disease and no antibiotic therapy has been instituted. We will get a coagulation profile and hold off on any anticoagulation at this time. I have discussed the procedure of bronchoscopy including the risks which include bleeding, pneumothorax, risk of respiratory failure and/or cardiac arrhythmias and he is in agreement. Thank you for this consultation. MD KANDI Lewis/VALERI /8:16 PM /9:12 PM
[2016-11-20 22:13] LABS: APTT (PATIENT) 32.6 SEC (24.3-30.1)
[2016-11-20] MEDS ORDERED: IOHEXOL 350 MG/ML 10 ML VIAL (for RAD DIAG) IV ONE (23:13)
--- NOTE | 2016-11-20 23:42 | RADRPT ---
EXAM DATE/TIME: 11/20/2016 23:04 [facility] COMPARISON: CHEST SINGLE AP, November 19, 2016, 9:33. INDICATIONS : Short of breath. Evaluate mass versus embolism. IV CONTRAST: 65 cc Omnipaque 350 (iohexol) IV RADIATION DOSE: 19.99 CTDIvol (mGy) MEDICAL HISTORY : Hypertension. Carcinoma, prostate. Tuberculosis. SURGICAL HISTORY : None. ENCOUNTER: Initial ACUITY: 1 day PAIN SCALE: 0/10 LOCATION: chest TECHNIQUE: Volumetric scanning of the chest was performed using a pulmonary embolism protocol MIP images were re constructed. Using automated exposure control and adjustment of the mA and/or kV according to patien t size, radiation dose was kept as low as reasonably achievable to obtain optimal diagnostic quality images. DICOM format image data is available electronically for review and comparison. Follow-up recommendations for detected pulmonary nodules are based at a minimum on nodule size and pa tient risk factors according to Fleischner Society Guidelines. FINDINGS: PULMONARY ARTERIES: No filling defects are seen in the pulmonary arteries through the segmental level. LUNGS: CT confirms the presence of a 5 cm cavitary mass in the basilar segment of the right upper lobe. Foca l area of pleural thickening posteromedially in the right base PLEURAE: No pleural effusion. Focal air pleural thickening posteromedially in the right base. MEDIASTINUM: There is good visualization of the great vessels of the middle mediastinum. Borderline prominent righ t hilar and paratracheal lymph nodes, likely associated with the aforementioned cavitary lesion in th e right upper lobe. MUSCULOSKELETAL: Within normal limits for patient age. MISCELLANEOUS: The visualized upper abdominal organs demonstrate no acute abnormality. CONCLUSION: 1. CT confirms the presence of a 5 cm cavitary mass in a basilar segment of the right upper lobe. Alyse gnostic considerations include both neoplastic and infectious etiologies, particularly fungal. 2. Borderline prominent right hilar and paratracheal lymph nodes likely associated with the cavitary lesion. 3. Nonspecific pleural thickening posterior medially in the right base. 4. No pulmonary embolus. Heber Fabian MD on November 20, 2016 at 23:27 Board Certified Radiologist. This report was verified electronically.
[2016-11-21] VITALS: BP_SYST 103; BP_SYST 149; BP_DIAS 57; BP_DIAS 77; PULSE 55; PULSE 85; RESP 20; TEMP 97.5; TEMP 99.7; O2SAT 97; O2SAT 98
[2016-11-21] MEDS: ACETAMINOPHEN/HYDROcodone 325 MG/5 MG TAB PO PRN ×6 (01:04→23:37)
[2016-11-21] MEDS: SODIUM CHLOR 0.9% 1000 ML INJ 1,000 ML IV SCH ×3 (05:49→18:17)
[2016-11-21 07:06] LABS: MEAN CELL VOLUME 88.5 FL (80.0-100.0); MEAN CORPUSCULAR HEMOGLOBIN 29.8 PG (27.0-34.0); MEAN CORPUSCULAR HGB CONC 33.7 % (32.0-36.0); PLATELET COUNT 403 TH/MM3 (150-450); RED BLOOD COUNT 3.27 MIL/MM3 (4.50-5.90); RED CELL DISTRIBUTION WIDTH 14.1 % (11.6-17.2); REVIEW FLAG FINAL; WHITE BLOOD COUNT 8.7 TH/MM3 (4.0-11.0)
[2016-11-21 07:13] LABS: ALT (GPT) 18 U/L (12-78); ANION GAP 8 MEQ/L (5-15); AST (GOT) 14 U/L (15-37); BICARBONATE 23.6 MEQ/L (21.0-32.0); BLOOD UREA NITROGEN 5 MG/DL (7-18); CHLORIDE 106 MEQ/L (98-107); GLOMERULAR FILTRATION RATE 155 ML/MIN (>89); POTASSIUM 4.4 MEQ/L (3.5-5.1); SODIUM (NA) 138 MEQ/L (136-145)
[2016-11-21 07:15] LABS: ALKALINE PHOSPHATASE 84 U/L (45-117); TOTAL BILIRUBIN ADULT 0.2 MG/DL (0.2-1.0)
[2016-11-21] MEDS: RESP: ALBUTEROL 2.5 MG/IPRATROPIUM 0.5 MG NEB (SCH) INH ×4 (07:38→20:00)
[2016-11-21 07:41] VITALS: O2SAT 98
[2016-11-21 08:00] VITALS: BP 110/55; PULSE 82; RESP 19; TEMP 96.9; O2SAT 96
[2016-11-21] MEDS: DOCUSATE SODIUM 50 MG/SENNA 8.6 MG TAB PO SCH ×2 (09:00→21:29)
[2016-11-21] MEDS: SODIUM CHLORIDE 0.9% FLUSH 10 ML FLUSH IV FLUSH SCH ×2 (09:00→21:00)
[2016-11-21] MEDS: LISINOPRIL 20 MG TAB PO SCH (09:00)
[2016-11-21] MEDS ORDERED: LIDOCAINE HCL 2% 100 MG/5 ML SYRINGE ONE ×2 (09:37→09:43)
[2016-11-21] MEDS ORDERED: LIDOCAINE HCL 4% PF 5 ML AMP ONE (09:37)
[2016-11-21] MEDS: OXYBUTYNIN CHLORIDE 5 MG TAB PO SCH ×2 (09:47→21:28)
[2016-11-21] MEDS: carBAMazepine 200 MG TAB PO SCH ×2 (09:48→21:27)
--- NOTE | 2016-11-21 10:29 | HHI.FPPN ---
Subjective Remarks Pt states that he is doing well this morning. His girlfriend was also in the room and was concerned about his contact precautions and when they will be lifted. They are concerned about what is going on with his health, but are adamant about it not being TB or cancer. No SOB, no CP, no nausea/vomiting. + for night sweats. (Lana Okeefe MD R1) Objective Vitals Vital Signs Date Time Temp Pulse Resp B/P Pulse Ox O2 Delivery O2 Flow Rate FiO2 11/21/16 08:00 96.9 82 19 110/55 96 11/21/16 07:41 98 11/21/16 00:00 99.7 85 20 103/57 98 11/20/16 20:59 97 21 11/20/16 20:00 100.5 85 20 115/53 95 11/20/16 16:00 98.3 71 19 116/55 98 11/20/16 12:00 97.1 71 18 134/61 99 I/O 11/20/16 11/20/16 11/20/16 11/21/16 11/21/16 11/21/16 07:00 15:00 23:00 07:00 15:00 23:00 Intake Total 1275 ml 1080 ml 2261 ml 816 ml 0 ml Output Total 600 ml Balance 1275 ml 480 ml 2261 ml 816 ml 0 ml Intake Oral 380 ml 1080 ml 480 ml 0 ml 0 ml IV Total 895 ml 1781 ml 816 ml Output Urine Total 600 ml # Voids 2 2 2 # Bowel Movements 0 (Lana Okeefe MD R1) Result Diagram: 11/21/16 0417 11/21/16 0417 Imaging Last [address] Angiography 11/20/162017 Signed Impressions: Service Date/Time: November 23:04 - CONCLUSION: 1. CT confirms the presence of a 5 cm cavitary mass in a basilar segment of the right upper lobe. Diagnostic considerations include both neoplastic and infectious etiologies, particularly fungal. 2. Borderline prominent right hilar and paratracheal lymph nodes likely associated with the cavitary lesion. 3. Nonspecific pleural thickening posterior medially in the right base. 4. No pulmonary embolus. Heber Fabian MD Objective Remarks O. CONSTITUTIONAL/GEN: normally nourished, in NAD. EYES: conjunctiva normal, PERRLA, EOMI. ENT: Mouth and pharynx normal. NECK: thyroid midline, carotids symmetrical. LUNGS: course rhonchi right chest anterior and posterior, respiratory effort is normal. CARDIOVASCULAR: RR without murmur or gallop. No significant edema. GI/ABD: soft without masses, without organomegaly. : no CVA tenderness NEURO: No focal deficits. SKIN: color normal, no rashes noted. HEME/LYMPH: no bruising, petechia or significant adenopathy MUSC: back is normal in appearance. Extremities are normal in appearance. PSYCH/MENTAL STATUS: Alert and oriented x 3. (Lana Okeefe MD R1) A/P Assessment and Plan Mr. Oliveira is a 46yo with a past medical history of HTN, asthma, epilepsy, and 60 pack year smoking history presenting to the ED for cough with hemoptysis of 3 week duration and possible TB exposure. Chest XR taken in the ED shows a cavitary lesion. He is being admitted to rule out TB vs fungal infection vs malignancy. (Lana Okeefe MD R1) Attending Attestation Patient seen and examined. Case reviewed and discussed with the resident team. Agree with plan of care as discussed with me and documented in the resident note. (Rober Morley MD) Problem List: (1) Cough with hemoptysis Status: Acute Plan: 3 week duration with possible TB exposure 1.5 months ago. Pt has a long history of tobacco use which puts him as risk for a possible malignancy. -Chest XR- cavitary lesion -CTA: 1. CT confirms the presence of a 5 cm cavitary mass in a basilar segment of the right upper lobe. Diagnostic considerations include both neoplastic and infectious etiologies, articularly fungal. 2. Borderline prominent right hilar and paratracheal lymph nodes likely associated with the cavitary lesion. -Pulmonology consult, appreciate recs * Bronchoscopy to evaluate the right upper lobe density and to get cultures and cytology * pulmonary function study will be done at bedside. -ID consult, appreciate recs * Hold off on antibiotics until we get cultures back. -Sputum Gram stain showed many WBS, mucus, epithelial cells, and gram positive cocci in pairs, clusters, and chains. Preliminary Culture showed heavy growth of normal respiratory laura at 24 hrs. -Sputum Fungal smear negative. Culture pending. -Sputum AFB cultures collected and pending -Blood cultures negative x 2 days -Myco/Tuberculosis PCR negative -Placed on droplet precautions/isolation (2) Asthma Status: Chronic Plan: Diffuse wheezing on exam -Duonebs q4hrs scheduled -Albuterol nebs 2.5mg q2hr prn (3) Hypertension, benign Status: Chronic Plan: -Lisinopril 20mg everyday po -Hydralazine 10mg IV q6h PRN (4) Epilepsy Status: Chronic Plan: Continue at home regimen - Tegretol 600mg po BID (5) History of prostate cancer Status: Chronic Plan: Continue at home meds -Oxybutynin Chloride 5mg po q12hr -Phenazopyridine HCl 100mg po q8hr (6) Hyperlipemia Status: Chronic Plan: Continue at home meds -Atorvastatin 80mg po HS (7) Normocytic anemia Status: Chronic Plan: Hemoglobin of 10.5 -stable from July 2016 (8) FEN Status: Acute Plan: Fluids -IV normal saline Electrolytes -Monitor and replace as needed Nutrition -Regular Diet GI prophylaxis -PRN DVT prophylaxis -Heparin (Lana Okeefe MD R1) Problem Qualifiers (1) Asthma: Qualified Code: J45.909 - Uncomplicated asthma, unspecified asthma severity (2) Epilepsy: Lana Okeefe MD R1 Nov 21, 2016 10:29 Rober Morley MD Nov 21, 2016 11:48
[2016-11-21] MEDS ORDERED: SODIUM CHLORIDE 0.9% 10 ML VIAL IRRIGATION ONE (10:39)
[2016-11-21] MEDS ORDERED: EPINEPHrine HCL (1:1000) 1 MG/ML VIAL OTHER ONE (10:39)
[2016-11-21] MEDS ORDERED: RESP: ALBUTEROL 2.5 MG/3 ML NEB (PRN) NEB (10:45)
[2016-11-21] MEDS ORDERED: MIDAZOLAM HCL 2 MG/2 ML VIAL ONE (11:03)
[2016-11-21] MEDS ORDERED: fentaNYL CITRATE 250 MCG/5 ML AMP ONE (11:03)
[2016-11-21] MEDS ORDERED: *RESP: ALBUTEROL 2.5 MG/3 ML NEB (PRN) PERIprocedural Use ONLY NEB ONE (11:03)
--- NOTE | 2016-11-21 11:29 | RADRPT ---
EXAM DATE/TIME: 11/21/2016 10:47 [facility] COMPARISON: CHEST SINGLE AP, November 19, 2016, 9:33. INDICATIONS : Post-op. Rule out pneumothorax. Cavitary mass in right upper lobe. MEDICAL HISTORY : Hypertension. Carcinoma, prostate. Tuberculosis. SURGICAL HISTORY : None. ENCOUNTER: Initial ACUITY: 1 day PAIN SCORE: Non-responsive. LOCATION: Bilateral chest FINDINGS: A single AP semierect view of the chest was obtained and again demonstrates a cavitary mass in the ri ght upper lobe with surrounding hazy opacity. There is no pneumothorax. The heart size remains at the upper limits of normal. The left lung is clear. There is no effusion. The bony thorax is intact. CONCLUSION: 1. No pneumothorax . 2. Cavitary mass again noted in right upper lobe with mild increased surrounding opacity. Yuri Kaminski MD on November 21, 2016 at 11:25 Board Certified Radiologist. This report was verified electronically.
[2016-11-21] MEDS ORDERED: DO NOT ADM ANY ANTICOAGULANT DRUGS PRN (11:45)
[2016-11-21] MEDS: HEPARIN SODIUM - SQ 10,000 UNITS/ML VIAL SQ SCH ×2 (11:53→23:38)
[2016-11-21] MEDS ORDERED: PROPOFOL 200 MG/20 ML AMP IV ONE (12:00)
[2016-11-21] MEDS ORDERED: ONDANSETRON HCL 4 MG/2 ML VIAL IV PUSH ONE (12:00)
[2016-11-21 16:00] VITALS: BP 120/59; PULSE 67; RESP 19; TEMP 97.2; O2SAT 99
[2016-11-21] MEDS: SKIN TEST RESULT SCH (16:00)
--- NOTE | 2016-11-21 19:01 | HHI.IDPN ---
Note Infectious Disease Note Patient feels okay. Less cough. Denies hemoptysis. No significant chest pain. Appetite is okay. Sputum AFB stain negative. Post bronch. Admitted with cold and flu-like symptoms. The patient has had cough for about 3 weeks with hemoptysis and night sweats. PAST MEDICAL HISTORY Asthma, seizure disorder, hypertension, hyperlipidemia. ALLERGIES MORPHINE. OBJECTIVE: Vital Signs Date Time Temp Pulse Resp B/P Pulse Ox O2 Delivery O2 Flow Rate FiO2 11/21/16 16:00 97.2 67 19 120/59 99 11/21/16 11:30 76 16 120/56 98 Nasal Cannula 2 11/21/16 11:15 76 16 118/60 98 Nasal Cannula 2 11/21/16 11:00 88 16 139/68 96 Nasal Cannula 2 11/21/16 10:55 97.7 92 16 136/77 97 Nasal Cannula 2 11/21/16 08:00 96.9 82 19 110/55 96 11/21/16 07:41 98 11/21/16 00:00 99.7 85 20 103/57 98 11/20/16 20:59 97 21 11/20/16 20:00 100.5 85 20 115/53 95 11/20/16 11/20/16 11/21/16 15:00 23:00 07:00 Intake Total 1080 ml 2261 ml 816 ml Output Total 600 ml Balance 480 ml 2261 ml 816 ml Intake Oral 1080 ml 480 ml 0 ml IV Total 1781 ml 816 ml Output Urine Total 600 ml # Voids 2 2 # Bowel Movements 0 Laboratory Tests Test 11/20/16 11/20/16 11/21/16 04:32 20:26 04:17 White Blood Count 8.1 TH/MM3 8.7 TH/MM3 8.7 TH/MM3 Red Blood Count 3.34 MIL/MM3 3.32 MIL/MM3 3.27 MIL/MM3 Hemoglobin 9.8 GM/DL 9.5 GM/DL 9.8 GM/DL Hematocrit 29.2 % 29.3 % 29.0 % Mean Corpuscular Volume 87.2 FL 88.3 FL 88.5 FL Mean Corpuscular Hemoglobin 29.4 PG 28.6 PG 29.8 PG Mean Corpuscular Hemoglobin 33.7 % 32.4 % 33.7 % Concent Red Cell Distribution Width 13.7 % 13.8 % 14.1 % Platelet Count 387 TH/MM3 403 TH/MM3 403 TH/MM3 Mean Platelet Volume 6.8 FL 6.3 FL 6.5 FL Neutrophils (%) (Auto) 51.6 % 58.4 % Lymphocytes (%) (Auto) 33.5 % 27.6 % Monocytes (%) (Auto) 10.8 % 10.8 % Eosinophils (%) (Auto) 2.9 % 2.5 % Basophils (%) (Auto) 1.2 % 0.7 % Neutrophils # (Auto) 4.2 TH/MM3 5.1 TH/MM3 Lymphocytes # (Auto) 2.7 TH/MM3 2.4 TH/MM3 Monocytes # (Auto) 0.9 TH/MM3 0.9 TH/MM3 Eosinophils # (Auto) 0.2 TH/MM3 0.2 TH/MM3 Basophils # (Auto) 0.1 TH/MM3 0.1 TH/MM3 CBC Comment DIFF FINAL DIFF FINAL Differential Comment Laboratory Tests Test 11/20/16 11/21/16 04:32 04:17 Sodium Level 138 MEQ/L 138 MEQ/L Potassium Level 4.1 MEQ/L 4.4 MEQ/L Chloride Level 105 MEQ/L 106 MEQ/L Carbon Dioxide Level 26.2 MEQ/L 23.6 MEQ/L Anion Gap 7 MEQ/L 8 MEQ/L Blood Urea Nitrogen 7 MG/DL 5 MG/DL Creatinine 0.59 MG/DL 0.67 MG/DL Estimat Glomerular Filtration 180 ML/MIN 155 ML/MIN Rate Random Glucose 102 MG/DL 91 MG/DL Calcium Level 8.5 MG/DL 8.7 MG/DL Total Bilirubin 0.2 MG/DL Aspartate Amino Transf 14 U/L (AST/SGOT) Alanine Aminotransferase 18 U/L (ALT/SGPT) Alkaline Phosphatase 84 U/L Total Protein 7.2 GM/DL Albumin 2.5 GM/DL Microbiology Date/Time Procedure Status Source Growth 11/19/16 09:30 Aerobic Blood Culture - Preliminary Resulted Blood Peripheral NO GROWTH IN 2 DAYS 11/19/16 09:30 Anaerobic Blood Culture - Preliminary Resulted Blood Peripheral NO GROWTH IN 2 DAYS 11/19/16 09:30 Aerobic Blood Culture - Preliminary Resulted Blood Peripheral NO GROWTH IN 2 DAYS 11/19/16 09:30 Anaerobic Blood Culture - Preliminary Resulted Blood Peripheral NO GROWTH IN 2 DAYS 11/19/16 17:15 Acid Fast Stain - Final Resulted Sputum Expectorated Sputum NO ACID FAST BACILLI SEEN 11/19/16 17:15 Mycobacterial Culture Resulted Sputum Expectorated Sputum Pending 11/19/16 22:30 Acid Fast Stain - Final Resulted Sputum Expectorated Sputum NO ACID FAST BACILLI SEEN 11/19/16 22:30 Mycobacterial Culture Resulted Sputum Expectorated Sputum Pending 11/19/16 22:30 Acid Fast Stain - Final Resulted Sputum Expectorated Sputum NO ACID FAST BACILLI SEEN 11/19/16 22:30 Mycobacterial Culture Resulted Sputum Expectorated Sputum Pending 11/20/16 17:40 Gram Stain - Final Resulted Sputum Expectorated Sputum 11/20/16 17:40 Sputum Culture - Preliminary Resulted Sputum Expectorated Sputum HEAVY GROWTH NORMAL RESPIRATORY MOSHE... 11/20/16 17:40 Fungal Smear - Final Resulted Sputum Expectorated Sputum NO FUNGAL ELEMENTS SEEN. 11/20/16 17:40 Fungal Culture Resulted Sputum Expectorated Sputum Pending 11/21/16 10:35 Gram Stain Received Bronchial Washings Right Upper Lobe Pending 11/21/16 10:35 Bronchial Culture Received Bronchial Washings Right Upper Lobe Pending 11/21/16 10:35 Acid Fast Stain Received Bronchial Washings Right Upper Lobe Pending 11/21/16 10:35 Mycobacterial Culture Received Bronchial Washings Right Upper Lobe Pending 11/21/16 10:35 Fungal Smear Received Bronchial Washings Right Upper Lobe Pending 11/21/16 10:35 Fungal Culture Received Bronchial Washings Right Upper Lobe Pending 11/21/16 10:35 Bronchial Aspirate Culture Received Bronchial Brushings Right Upper Lobe Pending 11/21/16 10:35 Acid Fast Stain Received Bronchial Brushings Right Upper Lobe Pending 11/21/16 10:35 Mycobacterial Culture Received Bronchial Brushings Right Upper Lobe Pending 11/21/16 10:35 Fungal Smear - Final Resulted Bronchial Brushings Right Upper Lobe 11/21/16 10:35 Fungal Culture Resulted Bronchial Brushings Right Upper Lobe Pending 11/21/16 15:45 Acid Fast Stain Received Urine Clean Catch Pending 11/21/16 15:45 Mycobacterial Culture Received Urine Clean Catch Pending 11/21/16 15:45 Fungal Smear Received Urine Clean Catch Pending 11/21/16 15:45 Fungal Culture Received Urine Clean Catch Pending IMAGING: Chest X-Ray 11/19/16 0987 Signed Impressions: Service Date/Time: Saturday, November 19, 2016 09:33 - CONCLUSION: New cavitary mass in the right upper lobe. The differential diagnosis includes squamous cell carcinoma and fungal infection. Yuri Kaminski MD PHYSICAL EXAMINATION GENERAL: No acute distress. He is awake and alert and oriented. HEENT: Pupils reactive to light. Oropharynx moist mucosa without lesions. NECK: Supple. No adenopathy or swelling or tenderness. LUNGS: rhonchi at the r. upper. HEART: Regular S1-S2 without audible murmurs, rubs or gallops. ABDOMEN: Bowel sounds present, diminished bowel sounds, soft, nontender. EXTREMITIES: Trace edema of the tibias bilateral. SKIN: No rash. NEURO: No gross focal findings. PSYCHIATRIC: Calm and cooperative. IMPRESSION Cavitary lung lesion/hemoptysis. R/O Pneumonia vs TB vs fungal infection vs malignancy. Negative AFB stain. RECOMMENDATIONS 1. D/C airborne isolation. 2. Follow bronch cultures and studies. 3. Monitor clinical status. 4. start Zosyn IV. De Ren MD Nov 21, 2016 19:01
[2016-11-21 20:00] VITALS: BP 115/56; PULSE 77; RESP 20; TEMP 98.3; O2SAT 97
[2016-11-21 20:59] VITALS: O2SAT 98
[2016-11-21] MEDS: ATORVASTATIN 80 MG TAB PO SCH (21:27)
[2016-11-21] MEDS: PIPERACIL-TAZO 4.5 GM PREMIX 100 ML IV SCH (21:27)
--- NOTE | 2016-11-21 23:01 | MP ---
cc: TRE MARI DATE OF SURGERY 11/21/16 PROCEDURE Bronchoscopy with biopsy brushings and washings. ANESTHESIA General with intubation. PREOPERATIVE DIAGNOSIS Cavitary lesion right upper lobe. POSTOPERATIVE DIAGNOSIS Cavitary lesion right upper lobe. SURGEON Dr. Mikel Mari was PROCEDURE AND FINDINGS The patient was intubated under general anesthesia following which the Olympus IT 180 bronchoscope was used to visualize the bronchi. Scope was advanced via the endotracheal tube into the trachea. Trachea and farrah appeared normal. The scope was then advanced into the right main stem and right upper lobe segmental bronchi. The right upper lobe segmental bronchi demonstrated mucopurulent secretions and these were suctioned out. The underlying bronchi demonstrated mucosal edema and ridging and some narrowing of the lumen of the bronchi. Washings were done with saline and brushings were done for cytology and micro from the right upper lobe. Following this, biopsies were done from the right upper lobe region as well. The scope was then advanced into the right middle lobe and right lower lobe segmental bronchi. These bronchi demonstrated few mucoid secretions and mild endobronchitis. No endobronchial lesions were seen. Saline washings were done. The scope was then advanced into the left main stem and left upper lobe segmental bronchi. These bronchi demonstrated no gross endobronchial lesions. There were mild mucoid secretions which were suctioned out. Saline washings were done. No other bronchial lesions were seen on the left side. The procedure was then terminated. The patient tolerated the procedure well. MD KANDI Lewis/ /10:46 AM /10:55 PM
[2016-11-22] VITALS (9 sets, daily range): BP systolic 119–148; BP diastolic 58–69; PULSE 70–80; RESP 16–20; TEMP 96.7–98.6; O2SAT 95–98
[2016-11-22] MEDS: PIPERACIL-TAZO 4.5 GM PREMIX 100 ML IV SCH ×4 (02:40→20:41)
[2016-11-22] MEDS: SODIUM CHLOR 0.9% 1000 ML INJ 1,000 ML IV SCH ×3 (02:40→20:43)
[2016-11-22] MEDS: ACETAMINOPHEN/HYDROcodone 325 MG/5 MG TAB PO PRN ×4 (05:07→20:42)
[2016-11-22 07:43] LABS: AUTOMATED NEUTROPHIL # 3.1 TH/MM3 (1.8-7.7); BASOPHIL % 0.7 % (0.0-2.0); EOSINOPHIL # 0.2 TH/MM3 (0-0.4); EOSINOPHIL % 3.5 % (0.0-4.0); HEMATOCRIT 26.1 % (39.0-51.0); HEMO FLAGS DIFF FINAL; LYMPHOCYTE # 2.1 TH/MM3 (1.0-4.8); MEAN CELL VOLUME 88.7 FL (80.0-100.0); MEAN CORPUSCULAR HEMOGLOBIN 29.7 PG (27.0-34.0); MEAN CORPUSCULAR HGB CONC 33.5 % (32.0-36.0); MONO % 10.7 % (0.0-8.0); NEUT % 50.1 % (16.0-70.0); PLATELET COUNT 370 TH/MM3 (150-450); RED BLOOD COUNT 2.95 MIL/MM3 (4.50-5.90); RED CELL DISTRIBUTION WIDTH 13.8 % (11.6-17.2); WHITE BLOOD COUNT 6.1 TH/MM3 (4.0-11.0)
[2016-11-22 08:00] LABS: ANION GAP 6 MEQ/L (5-15); AST (GOT) 13 U/L (15-37); BICARBONATE 26.7 MEQ/L (21.0-32.0); BLOOD UREA NITROGEN 6 MG/DL (7-18); CHLORIDE 106 MEQ/L (98-107); GLOMERULAR FILTRATION RATE 150 ML/MIN (>89); POTASSIUM 3.8 MEQ/L (3.5-5.1); SODIUM (NA) 139 MEQ/L (136-145)
[2016-11-22 08:01] LABS: ALT (GPT) 15 U/L (12-78)
[2016-11-22 08:04] LABS: ALKALINE PHOSPHATASE 78 U/L (45-117); TOTAL BILIRUBIN ADULT 0.2 MG/DL (0.2-1.0)
[2016-11-22] MEDS: RESP: ALBUTEROL 2.5 MG/IPRATROPIUM 0.5 MG NEB (SCH) INH ×4 (08:26→21:02)
--- NOTE | 2016-11-22 08:50 | HHI.FPPN ---
Subjective Remarks Pt seen and examined this morning. Patient underwent bronchoscopy yesterday with biopsy. He states he is doing okay today, with minimal pain. No shortness of breath. Occasional coughing. He is curious about the findings. Otherwise, denies any concerned. Denies any chest pain, abdominal pain, leg pain. (Max Mckenzie MD, R2) Objective Vitals Vital Signs Date Time Temp Pulse Resp B/P Pulse Ox O2 Delivery O2 Flow Rate FiO2 11/22/16 08:28 96 21 11/22/16 04:00 97.4 72 18 148/69 98 11/22/16 00:00 98.4 80 20 119/58 96 11/21/16 20:59 98 11/21/16 20:00 98.3 77 20 115/56 97 11/21/16 16:00 97.2 67 19 120/59 99 11/21/16 11:30 76 16 120/56 98 Nasal Cannula 2 11/21/16 11:15 76 16 118/60 98 Nasal Cannula 2 11/21/16 11:00 88 16 139/68 96 Nasal Cannula 2 11/21/16 10:55 97.7 92 16 136/77 97 Nasal Cannula 2 I/O 11/21/16 11/21/16 11/21/16 11/22/16 11/22/16 11/22/16 07:00 15:00 23:00 07:00 15:00 23:00 Intake Total 816 ml 708 ml 1453 ml 1140 ml Output Total 400 ml 0 ml Balance 816 ml 308 ml 1453 ml 1140 ml Intake Oral 0 ml 240 ml 480 ml 240 ml IV Total 816 ml 468 ml 973 ml 900 ml Output Urine Total 400 ml 0 ml # Voids 2 2 # Bowel Movements 0 0 (Max Mckenzie MD, R2) Result Diagram: 11/22/1618 11/22/1618 Objective Remarks CONSTITUTIONAL/GEN: normally nourished, in NAD. Receiving breathing treatment LUNGS: course rhonchi right chest anterior and posterior, respiratory effort is normal. CARDIOVASCULAR: RR without murmur or gallop. No significant edema. GI/ABD: soft without masses, without organomegaly. NEURO: No focal deficits. SKIN: color normal, no rashes noted. MUSC: Extremities are normal in appearance. PSYCH/MENTAL STATUS: Alert and oriented x 3. (Max Mckenzie MD, R2) A/P Assessment and Plan Mr. Oliveira is a 46yo with a past medical history of HTN, asthma, epilepsy, and 60 pack year smoking history presenting to the ED for cough with hemoptysis of 3 week duration and possible TB exposure. Chest XR taken in the ED shows a cavitary lesion. He is admitted to rule out TB vs fungal infection vs malignancy. Discharge Planning Pending workup of lung lesion. (Max Mckenzie MD, R2) Attending Attestation Patient seen and examined. Case reviewed and discussed with the resident team. Agree with plan of care as discussed with me and documented in the resident note. (Rober Morley MD) Problem List: (1) Cough with hemoptysis Status: Acute Plan: 3 week duration with possible TB exposure 1.5 months ago. Pt has a long history of tobacco use which puts him as risk for a possible malignancy. Chest XR- cavitary lesion CTA: 1. CT confirms the presence of a 5 cm cavitary mass in a basilar segment of the right upper lobe. Diagnostic considerations include both neoplastic and infectious etiologies, articularly fungal. 2. Borderline prominent right hilar and paratracheal lymph nodes likely associated with the cavitary lesion. -Pulmonology consult, appreciate recs * S/p bronchoscopy (11/21); biopsy taken * PFTs at bedside * Bronchial brushings pending -ID consult, appreciate recs * Started Zosyn IV * D/c airborne isolation Micro -Sputum Gram stain showed many WBS, mucus, epithelial cells, and gram positive cocci in pairs, clusters, and chains. Preliminary Culture showed heavy growth of normal respiratory laura at 24 hrs. -Sputum Fungal smear negative. Culture pending. -Sputum AFB stain: negative; culture pending -Blood cultures negative x 2 days -Myco/Tuberculosis PCR negative (2) Asthma Status: Chronic Plan: Diffuse wheezing on exam -Duonebs q4hrs scheduled -Albuterol nebs 2.5mg q2hr prn (3) Hypertension, benign Status: Chronic Plan: -Lisinopril 20mg daily -Hydralazine 10mg IV q6h PRN (4) Epilepsy Status: Chronic Plan: Continue at home regimen - Tegretol 600mg po BID (5) History of prostate cancer Status: Chronic Plan: Continue at home meds -Oxybutynin Chloride 5mg po q12hr -Phenazopyridine HCl 100mg po q8hr (6) Hyperlipemia Status: Chronic Plan: Continue at home meds -Atorvastatin 80mg po HS (7) Normocytic anemia Status: Chronic Plan: Hemoglobin of 10.5. Stable from July 2016 Hgb 8.8 this morning. No signs of bleeding -Continue to monitor (8) FEN Status: Acute Plan: Fluids -IV normal saline Electrolytes -Monitor and replace as needed Nutrition -Regular Diet GI prophylaxis -PRN DVT prophylaxis -Heparin (Max Mckenzie MD, R2) Problem Qualifiers (1) Asthma: (2) Epilepsy: (3) Hyperlipemia: Max Mckenzie MD, R2 Nov 22, 2016 08:49 Rober Morley MD Nov 25, 2016 09:02
[2016-11-22] MEDS: SODIUM CHLORIDE 0.9% FLUSH 10 ML FLUSH IV FLUSH SCH ×2 (09:00→20:43)
[2016-11-22] MEDS: DOCUSATE SODIUM 50 MG/SENNA 8.6 MG TAB PO SCH ×2 (10:51→20:42)
[2016-11-22] MEDS: OXYBUTYNIN CHLORIDE 5 MG TAB PO SCH ×2 (10:51→20:42)
[2016-11-22] MEDS: LISINOPRIL 20 MG TAB PO SCH (10:51)
[2016-11-22] MEDS: carBAMazepine 200 MG TAB PO SCH ×2 (10:51→20:42)
[2016-11-22] MEDS: HEPARIN SODIUM - SQ 10,000 UNITS/ML VIAL SQ SCH ×2 (10:52→23:36)
[2016-11-22] MEDS: SKIN TEST RESULT SCH (16:00)
--- NOTE | 2016-11-22 18:30 | HHI.PR ---
Subjective Remarks C/O Sore throat. No fever. Cultures from Bronchoscopy pending.Off O2 Objective Vital Signs Date Time Temp Pulse Resp B/P Pulse Ox O2 Delivery O2 Flow Rate FiO2 11/22/16 16:00 97.3 76 17 132/61 98 11/22/16 12:00 97.5 75 16 143/68 97 11/22/16 08:28 96 21 11/22/16 08:00 96.7 70 18 133/69 96 11/22/16 04:00 97.4 72 18 148/69 98 11/22/16 00:00 98.4 80 20 119/58 96 11/21/16 20:59 98 11/21/16 20:00 98.3 77 20 115/56 97 I/O 11/21/16 11/21/16 11/21/16 11/22/16 11/22/16 11/22/16 07:00 15:00 23:00 07:00 15:00 23:00 Intake Total 816 ml 708 ml 1453 ml 1140 ml 1517 ml Output Total 400 ml 0 ml Balance 816 ml 308 ml 1453 ml 1140 ml 1517 ml Intake Oral 0 ml 240 ml 480 ml 240 ml 600 ml IV Total 816 ml 468 ml 973 ml 900 ml 917 ml Output Urine Total 400 ml 0 ml # Voids 2 2 3 # Bowel Movements 0 0 0 Result Diagram: 11/22/1661711/22/1618 Objective Remarks GENERAL: This moderately obese middle-aged -[place] male who is alert, pale, in no acute distress. He is on oxygen. HEENT: Head normocephalic. Pupils are reactive and equal. Tongue is moist. Throat is injected. Nasal mucosa clear. NECK: No bruits or thyroid enlargement. CHEST: Distant breath sounds. Few coarse wheezes over the right lung field. No definite crackles. HEART: Heart sounds are regular S1-S2 with no murmur. No S3. ABDOMEN: The abdomen is soft and protuberant without masses or organomegaly or tenderness. Bowel sounds are active. EXTREMITIES: No lesions. No edema. Reflexes are 1+ with no gross motor deficits. NEURO: Cranial nerves grossly intact. SKIN: Skin showed no lesions. Assessment and Plan Assessment and Plan IMPRESSION 1. Cavitary lesion right upper lobe, rule out tuberculosis versus fungal disease. 2. Rule out malignancy. 3. He has COPD with chronic bronchitis and acute exacerbation. 4. History of hypertension. 5. History of prostate cancer. Plan : 1. Cont Antibioitcs per ID 2. Nebs qid , duoneb 3. O2 PRN 2l. 4. PFT on Thursday 5. Chest Xray in am Yojana Mari MD Nov 22, 2016 18:30
--- NOTE | 2016-11-22 19:44 | RADRPT ---
EXAM DATE/TIME: 11/22/2016 19:04 [facility] COMPARISON: CHEST SINGLE AP, November 19, 2016, 9:33. CHEST SINGLE AP, November 21, 2016, 10:47. INDICATIONS : Short of Breath MEDICAL HISTORY : Hypertension. Carcinoma, prostate. Tuberculosis. SURGICAL HISTORY : None. ENCOUNTER: Subsequent ACUITY: 2 days PAIN SCORE: 0/10 LOCATION: Bilateral chest FINDINGS: Right upper lobe masslike opacity which is partially cavitated is again seen demonstrating more densi ty within it the overall size measures 5.6 cm. The rest of the examination has not significantly huerta ged. CONCLUSION: There is more density within the cavitary mass in right upper lung and the overall size has not signi ficantly changed. Georgia Le MD on November 22, 2016 at 19:41 Board Certified Radiologist. This report was verified electronically.
[2016-11-22] MEDS: ATORVASTATIN 80 MG TAB PO SCH (20:42)
[2016-11-22] MEDS: ACETAMINOPHEN 325 MG TAB PO PRN (20:49)
[2016-11-23] MEDS: PIPERACIL-TAZO 4.5 GM PREMIX 100 ML IV SCH ×4 (01:45→19:28)
[2016-11-23] MEDS: ACETAMINOPHEN/HYDROcodone 325 MG/5 MG TAB PO PRN ×6 (01:45→22:41)
[2016-11-23] MEDS: SODIUM CHLOR 0.9% 1000 ML INJ 1,000 ML IV SCH ×3 (03:52→19:28)
[2016-11-23 04:26] LABS: HEMATOCRIT 27.5 % (39.0-51.0); MEAN CELL VOLUME 88.9 FL (80.0-100.0); MEAN CORPUSCULAR HEMOGLOBIN 28.7 PG (27.0-34.0); MEAN CORPUSCULAR HGB CONC 32.3 % (32.0-36.0); PLATELET COUNT 413 TH/MM3 (150-450); REVIEW FLAG FINAL; WHITE BLOOD COUNT 7.6 TH/MM3 (4.0-11.0)
[2016-11-23 04:48] LABS: BICARBONATE 22.2 MEQ/L (21.0-32.0); POTASSIUM 4.2 MEQ/L (3.5-5.1)
[2016-11-23] MEDS: LISINOPRIL 20 MG TAB PO SCH (07:28)
[2016-11-23] MEDS: carBAMazepine 200 MG TAB PO SCH ×2 (07:28→19:34)
[2016-11-23] MEDS: SODIUM CHLORIDE 0.9% FLUSH 10 ML FLUSH IV FLUSH SCH ×2 (07:28→19:27)
[2016-11-23] MEDS: OXYBUTYNIN CHLORIDE 5 MG TAB PO SCH ×2 (07:28→19:27)
[2016-11-23] MEDS: DOCUSATE SODIUM 50 MG/SENNA 8.6 MG TAB PO SCH ×2 (07:28→19:27)
[2016-11-23 08:00] VITALS: BP 147/66; PULSE 74; RESP 18; TEMP 96.6; O2SAT 96
[2016-11-23 08:10] VITALS: O2SAT 99
[2016-11-23] MEDS: RESP: ALBUTEROL 2.5 MG/IPRATROPIUM 0.5 MG NEB (SCH) INH ×2 (08:10→11:35)
[2016-11-23] MEDS: HEPARIN SODIUM - SQ 10,000 UNITS/ML VIAL SQ SCH (11:15)
[2016-11-23 12:00] VITALS: BP 140/64; PULSE 69; RESP 18; TEMP 96.5; O2SAT 97
--- NOTE | 2016-11-23 13:11 | HHI.FPPN ---
Subjective Remarks Patient states that he is doing well this morning. Is anxious about the results of his bronchoscopy. He is breathing better with his nebulizer treatments. No fever or chills, no night sweats, no abdominal pain, no nausea/vomiting, no chest pain, no shortness of breath. (Lana Okeefe MD R1) Objective Vitals Vital Signs Date Time Temp Pulse Resp B/P (MAP) Pulse Ox O2 Delivery O2 Flow Rate FiO2 11/23/16 02:45 18 11/22/16 23:36 98.1 75 20 126/58 (80) 95 11/22/16 21:42 18 11/22/16 21:03 98 11/22/16 20:00 98.6 80 18 134/65 (88) 97 11/22/16 16:00 97.3 76 17 132/61 (84) 98 I/O 11/22/16 11/22/16 11/22/16 11/23/16 11/23/16 11/23/16 07:00 15:00 23:00 07:00 15:00 23:00 Intake Total 1140 ml 1517 ml 1416 ml 1336 ml Output Total 0 ml Balance 1140 ml 1517 ml 1416 ml 1336 ml Intake Oral 240 ml 600 ml 480 ml 360 ml IV Total 900 ml 917 ml 936 ml 976 ml Output Urine Total 0 ml # Voids 3 2 3 # Bowel Movements 0 0 1 (Lana Okeefe MD R1) Result Diagram: 11/23/16 0301 11/23/16 0301 Imaging Last 48 hours Impressions Chest X-Ray 11/22/16 0000 Signed Impressions: Service Date/Time: Tuesday, November 22, 2016 19:04 - CONCLUSION: There is more density within the cavitary mass in right upper lung and the overall size has not significantly changed. Georgia Le MD Objective Remarks CONSTITUTIONAL/GEN: normally nourished, in NAD. Receiving breathing treatment LUNGS: course rhonchi right chest anterior and posterior,diffuse wheezing. respiratory effort is normal. CARDIOVASCULAR: RR without murmur or gallop. No significant edema. GI/ABD: soft without masses, without organomegaly. NEURO: No focal deficits. SKIN: color normal, no rashes noted. MUSC: Extremities are normal in appearance. PSYCH/MENTAL STATUS: Alert and oriented x 3. Procedures bronchoscopy on 11-21-16 (Lana Okeefe MD R1) A/P Assessment and Plan Mr. Oliveira is a 46yo with a past medical history of HTN, asthma, epilepsy, and 60 pack year smoking history presenting to the ED for cough with hemoptysis of 3 week duration and possible TB exposure. Chest XR taken in the ED shows a cavitary lesion. He is admitted to rule out TB vs fungal infection vs malignancy. Discharge Planning Pending workup of lung lesion. (Lana Okeefe MD R1) Attending Attestation Patient seen and examined. Case reviewed and discussed with the resident team. Agree with plan of care as discussed with me and documented in the resident note. (Rober Morley MD) Problem List: (1) Cough with hemoptysis ICD Codes: R04.2 - Hemoptysis Status: Acute Plan: 3 week duration with possible TB exposure 1.5 months ago. Pt has a long history of tobacco use which puts him as risk for a possible malignancy. Chest XR- cavitary lesion CTA: 1. CT confirms the presence of a 5 cm cavitary mass in a basilar segment of the right upper lobe. Diagnostic considerations include both neoplastic and infectious etiologies, articularly fungal. 2. Borderline prominent right hilar and paratracheal lymph nodes likely associated with the cavitary lesion. -Pulmonology consult, appreciate recs * S/p bronchoscopy (11/21); biopsy taken * PFTs at bedside tomorrow * Bronchial brushings RUL pending * Fungal pending * Acid Fast stain pending. Mycobacterial culture pending. * Bronchial Aspirate Culture- No growth in 24 hrs * Bronchial washings * Fungal smear negative. Culture pending * Acid fast stain pending. Mycobacterial culture pending. -ID consult, appreciate recs * Started Zosyn IV * D/c airborne isolation Micro -Sputum Gram stain showed many WBCs, mucus, epithelial cells, and gram positive cocci in pairs, clusters, and chains. Final culture showed heavy growth of normal respiratory laura. -Sputum Fungal smear negative. Culture pending. -Sputum AFB stain: negative; culture pending -Blood cultures negative x 4 days -Myco/Tuberculosis PCR negative (2) Asthma ICD Codes: J45.909 - Asthma Status: Chronic Plan: Diffuse wheezing on exam -Duonebs q4hrs scheduled -Albuterol nebs 2.5mg q2hr prn (3) Hypertension, benign ICD Codes: I10 - Benign hypertension Status: Chronic Plan: -Lisinopril 20mg daily -Hydralazine 10mg IV q6h PRN (4) Epilepsy ICD Codes: G40.909 - Epilepsy, unspecified, not intractable, without status epilepticus Status: Chronic Plan: Continue at home regimen - Tegretol 600mg po BID (5) History of prostate cancer ICD Codes: Z85.46 - Personal history of malignant neoplasm of prostate Status: Chronic Plan: Continue at home meds -Oxybutynin Chloride 5mg po q12hr -Phenazopyridine HCl 100mg po q8hr (6) Hyperlipemia ICD Codes: E78.5 - Hyperlipidemia, unspecified Status: Chronic Plan: Continue at home meds -Atorvastatin 80mg po HS (7) Normocytic anemia ICD Codes: D64.9 - Anemia, unspecified Status: Chronic Plan: Hemoglobin of 10.5. Stable from July 2016 Hgb 8.8 this morning. No signs of bleeding -Continue to monitor (8) FEN Status: Acute Plan: Fluids -IV normal saline Electrolytes -Monitor and replace as needed Nutrition -Regular Diet GI prophylaxis -PRN DVT prophylaxis -Heparin (Lana Okeefe MD R1) Problem Qualifiers (1) Asthma: (2) Epilepsy: (3) Hyperlipemia: Lana Okeefe MD R1 Nov 23, 2016 13:11 Rober Morley MD Nov 25, 2016 08:52
[2016-11-23] MEDS: SKIN TEST RESULT SCH (15:08)
[2016-11-23 16:00] VITALS: BP 154/71; PULSE 70; RESP 18; TEMP 97.1; O2SAT 98
--- NOTE | 2016-11-23 18:02 | HHI.PR ---
Subjective Remarks No Sore throat. No fever. Cultures from Bronchoscopy pending.Off O2. Has some wheezing and cough. Objective Vital Signs Date Time Temp Pulse Resp B/P (MAP) Pulse Ox O2 Delivery O2 Flow Rate FiO2 11/23/16 16:00 97.1 70 18 154/71 (98) 98 11/23/16 12:00 96.5 69 18 140/64 (89) 97 11/23/16 08:10 99 21 11/23/16 08:00 96.6 74 18 147/66 (93) 96 11/23/16 02:45 18 11/22/16 23:36 98.1 75 20 126/58 (80) 95 11/22/16 21:42 18 11/22/16 21:03 98 11/22/16 20:00 98.6 80 18 134/65 (88) 97 I/O 11/22/16 11/22/16 11/22/16 11/23/16 11/23/16 11/23/16 07:00 15:00 23:00 07:00 15:00 23:00 Intake Total 1140 ml 1517 ml 1416 ml 1336 ml Output Total 0 ml Balance 1140 ml 1517 ml 1416 ml 1336 ml Intake Oral 240 ml 600 ml 480 ml 360 ml IV Total 900 ml 917 ml 936 ml 976 ml Output Urine Total 0 ml # Voids 3 2 3 # Bowel Movements 0 0 1 Result Diagram: 11/23/16 0301 11/23/16 0301 Objective Remarks GENERAL: This moderately obese middle-aged -[place] male who is alert, pale, in no acute distress. HEENT: Head normocephalic. Pupils are reactive and equal. Tongue is moist. Throat is clear Nasal mucosa clear. NECK: No bruits or thyroid enlargement. CHEST: Distant breath sounds. Few wheezes over the right lung field. No crackles. HEART: Heart sounds are regular S1-S2 with no murmur. No S3. ABDOMEN: The abdomen is soft and protuberant without masses or organomegaly or tenderness. Bowel sounds are active. EXTREMITIES: No lesions. No edema. Reflexes are 1+ with no gross motor deficits. NEURO: Cranial nerves grossly intact. SKIN: Skin showed no lesions. Assessment and Plan Assessment and Plan IMPRESSION 1. Cavitary lesion right upper lobe, rule out tuberculosis versus fungal disease. 2. Rule out malignancy. 3. He has COPD with chronic bronchitis and acute exacerbation. 4. History of hypertension. 5. History of prostate cancer. Plan : 1. Cont Antibiotics per ID 2. Nebs qid , duoneb 3. O2 PRN 2l. 4. PFT on Thursday 5. CBC,BMP am. Yojana Mari MD Nov 23, 2016 18:02
[2016-11-23] MEDS: ATORVASTATIN 80 MG TAB PO SCH (19:27)
[2016-11-23] MEDS: ACETAMINOPHEN 325 MG TAB PO PRN (19:37)
[2016-11-23 20:00] VITALS: BP 142/66; PULSE 70; RESP 20; TEMP 98.2; O2SAT 97
[2016-11-24] VITALS: BP 133/61; PULSE 79; RESP 20; TEMP 97.9; O2SAT 98
[2016-11-24] MEDS: HEPARIN SODIUM - SQ 10,000 UNITS/ML VIAL SQ SCH ×2 (00:15→13:35)
[2016-11-24] MEDS: PIPERACIL-TAZO 4.5 GM PREMIX 100 ML IV SCH ×4 (02:06→20:19)
[2016-11-24] MEDS: SODIUM CHLOR 0.9% 1000 ML INJ 1,000 ML IV SCH ×3 (03:52→20:23)
[2016-11-24 04:00] VITALS: BP 156/70; PULSE 65; RESP 18; TEMP 97.7; O2SAT 96
[2016-11-24 08:00] VITALS: BP 169/74; PULSE 62; RESP 18; TEMP 96.4; O2SAT 96
[2016-11-24] MEDS: LISINOPRIL 20 MG TAB PO SCH (08:08)
[2016-11-24] MEDS: DOCUSATE SODIUM 50 MG/SENNA 8.6 MG TAB PO SCH ×2 (08:08→20:22)
[2016-11-24] MEDS: SODIUM CHLORIDE 0.9% FLUSH 10 ML FLUSH IV FLUSH SCH ×2 (08:08→20:22)
[2016-11-24] MEDS: OXYBUTYNIN CHLORIDE 5 MG TAB PO SCH ×2 (08:11→20:22)
[2016-11-24] MEDS: carBAMazepine 200 MG TAB PO SCH ×2 (08:22→20:22)
[2016-11-24 12:00] VITALS: BP 172/78; PULSE 64; RESP 18; TEMP 97.4; O2SAT 96
--- NOTE | 2016-11-24 13:47 | HHI.FPPN ---
Subjective Remarks Patient states that he is doing great today. Having no shortness of breath, no chest pain, no fever or chills, no night sweats. He is still awaiting the results of his lung biopsy. He is eager to go home. (Lana Okeefe MD R1) Objective Vitals Vital Signs Date Time Temp Pulse Resp B/P (MAP) Pulse Ox O2 Delivery O2 Flow Rate FiO2 11/24/16 08:00 96.4 62 18 169/74 (105) 96 11/24/16 00:00 97.9 79 20 133/61 (85) 98 11/23/16 23:41 18 11/23/16 20:37 18 11/23/16 20:00 98.2 70 20 142/66 (91) 97 11/23/16 16:00 97.1 70 18 154/71 (98) 98 I/O 11/23/16 11/23/16 11/23/16 11/24/16 11/24/16 11/24/16 07:00 15:00 23:00 07:00 15:00 23:00 Intake Total 1336 ml 3195 ml 1460 ml 100 ml Balance 1336 ml 3195 ml 1460 ml 100 ml Intake Oral 360 ml 1680 ml 360 ml IV Total 976 ml 1515 ml 1100 ml 100 ml # Voids 3 6 2 # Bowel Movements 0 (Lana Okeefe MD R1) Result Diagram: 11/23/16 0301 11/23/16 0301 Objective Remarks CONSTITUTIONAL/GEN: normally nourished, in NAD. Receiving breathing treatment LUNGS: course rhonchi right chest anterior and posterior,diffuse wheezing. respiratory effort is normal. CARDIOVASCULAR: RR without murmur or gallop. No significant edema. GI/ABD: soft without masses, without organomegaly. NEURO: No focal deficits. SKIN: color normal, no rashes noted. MUSC: Extremities are normal in appearance. PSYCH/MENTAL STATUS: Alert and oriented x 3. Procedures bronchoscopy on 11-21-16 (Lana Okeefe MD R1) A/P Assessment and Plan Mr. Oliveira is a 46yo with a past medical history of HTN, asthma, epilepsy, and 60 pack year smoking history presenting to the ED for cough with hemoptysis of 3 week duration and possible TB exposure. Chest XR taken in the ED shows a cavitary lesion. He is admitted to rule out TB vs fungal infection vs malignancy. Discharge Planning Pending workup of lung lesion. (Lana Okeefe MD R1) Attending Attestation Patient seen and examined. Case reviewed and discussed with the resident team. Agree with plan of care as discussed with me and documented in the resident note. (Rober Morley MD) Problem List: (1) Cough with hemoptysis ICD Codes: R04.2 - Hemoptysis Status: Acute Plan: 3 week duration with possible TB exposure 1.5 months ago. Pt has a long history of tobacco use which puts him as risk for a possible malignancy. Chest XR- cavitary lesion CTA: 1. CT confirms the presence of a 5 cm cavitary mass in a basilar segment of the right upper lobe. Diagnostic considerations include both neoplastic and infectious etiologies, articularly fungal. 2. Borderline prominent right hilar and paratracheal lymph nodes likely associated with the cavitary lesion. -Pulmonology consult, appreciate recs * S/p bronchoscopy (11/21); biopsy taken * PFTs at bedside tomorrow * Bronchial brushings RUL pending * Fungal pending * Acid Fast stain pending. Mycobacterial culture pending. * Bronchial Aspirate Culture- No growth in 48 hrs * Bronchial washings * Fungal smear negative. Culture pending * Acid fast stain pending. Mycobacterial culture pending. -ID consult, appreciate recs * Started Zosyn IV * D/c airborne isolation Micro -Sputum Gram stain showed many WBCs, mucus, epithelial cells, and gram positive cocci in pairs, clusters, and chains. Final culture showed heavy growth of normal respiratory laura. -Sputum Fungal smear negative. Culture pending. -Sputum AFB stain: negative; culture pending -Blood cultures negative x 5 days -Myco/Tuberculosis PCR negative (2) Asthma ICD Codes: J45.909 - Asthma Status: Chronic Plan: Diffuse wheezing on exam -Duonebs q4hrs scheduled -Albuterol nebs 2.5mg q2hr prn (3) Hypertension, benign ICD Codes: I10 - Benign hypertension Status: Chronic Plan: -Lisinopril 20mg daily -Hydralazine 10mg IV q6h PRN (4) Epilepsy ICD Codes: G40.909 - Epilepsy, unspecified, not intractable, without status epilepticus Status: Chronic Plan: Continue at home regimen - Tegretol 600mg po BID (5) History of prostate cancer ICD Codes: Z85.46 - Personal history of malignant neoplasm of prostate Status: Chronic Plan: Continue at home meds -Oxybutynin Chloride 5mg po q12hr -Phenazopyridine HCl 100mg po q8hr (6) Hyperlipemia ICD Codes: E78.5 - Hyperlipidemia, unspecified Status: Chronic Plan: Continue at home meds -Atorvastatin 80mg po HS (7) Normocytic anemia ICD Codes: D64.9 - Anemia, unspecified Status: Chronic Plan: Hemoglobin of 10.5. Stable from July 2016 Hgb 8.8 this morning. No signs of bleeding -Continue to monitor (8) FEN Status: Acute Plan: Fluids -IV normal saline Electrolytes -Monitor and replace as needed Nutrition -Regular Diet GI prophylaxis -PRN DVT prophylaxis -Heparin (Lana Okeefe MD R1) Problem Qualifiers (1) Asthma: (2) Epilepsy: (3) Hyperlipemia: Lana Okeefe MD R1 Nov 24, 2016 13:47 Rober Morley MD Nov 25, 2016 08:54
--- NOTE | 2016-11-24 15:06 | HHI.IDPN ---
Note Infectious Disease Note Patient feels okay. Not coughing. Denies Chest pain, SOB. No nausea. Bronch AFB stain negative. Culture negative x 2 days. Admitted with cold and flu-like symptoms. The patient has had cough for about 3 weeks with hemoptysis and night sweats. PAST MEDICAL HISTORY Asthma, seizure disorder, hypertension, hyperlipidemia. ALLERGIES MORPHINE. OBJECTIVE: Vital Signs Date Time Temp Pulse Resp B/P (MAP) Pulse Ox O2 Delivery O2 Flow Rate FiO2 11/24/16 12:00 97.4 64 18 172/78 (109) 96 11/24/16 08:00 96.4 62 18 169/74 (105) 96 11/24/16 00:00 97.9 79 20 133/61 (85) 98 11/23/16 23:41 18 11/23/16 20:37 18 11/23/16 20:00 98.2 70 20 142/66 (91) 97 11/23/16 16:00 97.1 70 18 154/71 (98) 98 Laboratory Tests Test 11/23/16 03:01 White Blood Count 7.6 TH/MM3 Red Blood Count 3.10 MIL/MM3 Hemoglobin 8.9 GM/DL Hematocrit 27.5 % Mean Corpuscular Volume 88.9 FL Mean Corpuscular Hemoglobin 28.7 PG Mean Corpuscular Hemoglobin Concent 32.3 % Red Cell Distribution Width 14.0 % Platelet Count 413 TH/MM3 Mean Platelet Volume 6.0 FL Laboratory Tests Test 11/23/16 03:01 Blood Urea Nitrogen 8 MG/DL Creatinine 0.71 MG/DL Random Glucose 97 MG/DL Calcium Level 8.8 MG/DL Sodium Level 137 MEQ/L Potassium Level 4.2 MEQ/L Chloride Level 106 MEQ/L Carbon Dioxide Level 22.2 MEQ/L Anion Gap 9 MEQ/L Estimat Glomerular Filtration Rate 145 ML/MIN Microbiology Date/Time Source Procedure Growth Status 11/21/16 15:45 Urine Clean Catch Fungal Smear - Final Complete 11/21/16 15:45 Urine Clean Catch Fungal Culture - Final Complete 11/21/16 15:45 Urine Clean Catch Acid Fast Stain - Final NO ACID FAST BACILLI SEEN Resulted 11/21/16 15:45 Urine Clean Catch Mycobacterial Culture Pending Resulted IMAGING: Chest X-Ray 11/22/16 0000 Signed Impressions: Service Date/Time: Tuesday, November 22, 2016 19:04 - CONCLUSION: There is more density within the cavitary mass in right upper lung and the overall size has not significantly changed. Georgia Le MD Chest X-Ray 11/19/16 0925 Signed Impressions: Service Date/Time: Saturday, November 19, 2016 09:33 - CONCLUSION: New cavitary mass in the right upper lobe. The differential diagnosis includes squamous cell carcinoma and fungal infection. Yuri Kaminski MD PHYSICAL EXAMINATION GENERAL: No acute distress. Awake, alert and oriented. HEENT: Pupils reactive to light. Oropharynx moist mucosa without lesions. NECK: Supple. No adenopathy or swelling or tenderness. LUNGS: Rhonchi at the r. upper lung. HEART: Regular S1-S2 without audible murmurs, rubs or gallops. ABDOMEN: Bowel sounds present, soft, nontender. EXTREMITIES: No edema. SKIN: No rash. NEURO: Non focal. PSYCHIATRIC: Calm and cooperative. IMPRESSION Cavitary lung lesion/hemoptysis. R/O Pneumonia vs TB vs fungal infection vs malignancy. AFB smear negative. RECOMMENDATIONS 1. If bronch culture is negative at 72 hours - can D/C isolation. 2. Monitor clinical status. 3. Continue Zosyn IV. I spoke to pathology. Bronch tissue specimen does not look like malignancy. Special pathology stains are pending. This could be atypical non TB mycobacteria which may take time to grow and therefore the culture will have to be followed while treating empirically. I have explained this extensively to patient and his significant other. Further decisions pending stain results to determine antibiotics. De Ren MD Nov 24, 2016 15:06
[2016-11-24 16:00] VITALS: BP 156/70; PULSE 65; RESP 18; TEMP 97.7; O2SAT 96
[2016-11-24] MEDS: ACETAMINOPHEN/HYDROcodone 325 MG/5 MG TAB PO PRN (18:06)
--- NOTE | 2016-11-24 19:42 | HHI.PR ---
Subjective Remarks No Sore throat. No fever. Cultures from Bronchoscopy pending . Path shows benign tissue Has some wheezing and cough. Objective Vital Signs Date Time Temp Pulse Resp B/P (MAP) Pulse Ox O2 Delivery O2 Flow Rate FiO2 11/24/16 16:00 97.7 65 18 156/70 (98) 96 11/24/16 12:00 97.4 64 18 172/78 (109) 96 11/24/16 08:00 96.4 62 18 169/74 (105) 96 11/24/16 00:00 97.9 79 20 133/61 (85) 98 11/23/16 23:41 18 11/23/16 20:37 18 11/23/16 20:00 98.2 70 20 142/66 (91) 97 I/O 11/23/16 11/23/16 11/23/16 11/24/16 11/24/16 11/24/16 07:00 15:00 23:00 07:00 15:00 23:00 Intake Total 1336 ml 3195 ml 1460 ml 100 ml 720 ml Balance 1336 ml 3195 ml 1460 ml 100 ml 720 ml Intake Oral 360 ml 1680 ml 360 ml 720 ml IV Total 976 ml 1515 ml 1100 ml 100 ml # Voids 3 6 2 2 # Bowel Movements 0 1 Result Diagram: 11/23/16 0301 11/23/16 0301 Objective Remarks GENERAL: This moderately obese middle-aged -[place] male who is alert, in no acute distress. HEENT: Head normocephalic. Pupils are reactive and equal. Tongue is moist. Throat is clear Nasal mucosa clear. NECK: No bruits or thyroid enlargement. CHEST: Distant breath sounds. Few wheezes over the right lung field. No crackles. HEART: Heart sounds are regular S1-S2 with no murmur. No S3. ABDOMEN: The abdomen is soft and protuberant without masses or organomegaly or tenderness. Bowel sounds are active. EXTREMITIES: No lesions. No edema. Reflexes are 1+ with no gross motor deficits. NEURO: Cranial nerves grossly intact. SKIN: Skin showed no lesions. Assessment and Plan Assessment and Plan IMPRESSION 1. Cavitary lesion right upper lobe, rule out tuberculosis versus fungal disease. 2. Rule out malignancy. 3. He has COPD with chronic bronchitis and acute exacerbation. 4. History of hypertension. 5. History of prostate cancer. Plan : 1. Cont Antibiotics per ID 2. Nebs qid , duoneb 3. D/C O2 PRN 2l. 4. PFT today 5. D/C isolation if cultures are Neg for M TB. Yojana Mari MD Nov 24, 2016 19:42
[2016-11-24 20:00] VITALS: BP 176/74; PULSE 65; RESP 17; TEMP 97.2; O2SAT 98
[2016-11-24] MEDS: ATORVASTATIN 80 MG TAB PO SCH (20:22)
[2016-11-24] MEDS: ACETAMINOPHEN 325 MG TAB PO PRN (20:30)
[2016-11-25] VITALS: BP 144/71; PULSE 61; RESP 17; TEMP 96.8; O2SAT 98
[2016-11-25] MEDS: PIPERACIL-TAZO 4.5 GM PREMIX 100 ML IV SCH ×3 (00:15→14:40)
[2016-11-25] MEDS: HEPARIN SODIUM - SQ 10,000 UNITS/ML VIAL SQ SCH ×2 (00:16→12:52)
[2016-11-25] MEDS: ACETAMINOPHEN/HYDROcodone 325 MG/5 MG TAB PO PRN ×3 (00:16→11:23)
[2016-11-25] MEDS: SODIUM CHLOR 0.9% 1000 ML INJ 1,000 ML IV SCH ×2 (06:21→11:52)
[2016-11-25 08:00] VITALS: BP 159/71; PULSE 61; RESP 18; TEMP 97.5; O2SAT 96
[2016-11-25] MEDS: DOCUSATE SODIUM 50 MG/SENNA 8.6 MG TAB PO SCH (09:00)
[2016-11-25] MEDS: SODIUM CHLORIDE 0.9% FLUSH 10 ML FLUSH IV FLUSH SCH (09:00)
[2016-11-25] MEDS: OXYBUTYNIN CHLORIDE 5 MG TAB PO SCH (09:34)
[2016-11-25] MEDS: LISINOPRIL 20 MG TAB PO SCH (09:35)
[2016-11-25] MEDS: carBAMazepine 200 MG TAB PO SCH (09:37)
--- NOTE | 2016-11-25 09:43 | HHI.FPPN ---
Subjective Remarks Patient seen and examined this morning. No acute events overnight. Denies any complaints/concerns this morning. No difficulty breathing. Is curious about the test results and is wondering when he can leave. Denies any fever/chills, n/v, chest pain, SOB, abdominal pain, leg pain. (Max Mckenzie MD, R2) Objective Vitals Vital Signs Date Time Temp Pulse Resp B/P (MAP) Pulse Ox O2 Delivery O2 Flow Rate FiO2 11/25/16 08:00 97.5 61 18 159/71 (100) 96 11/25/16 00:00 96.8 61 17 144/71 (95) 98 11/24/16 20:00 97.2 65 17 176/74 (108) 98 11/24/16 16:00 97.7 65 18 156/70 (98) 96 11/24/16 12:00 97.4 64 18 172/78 (109) 96 I/O 11/24/16 11/24/16 11/24/16 11/25/16 11/25/16 11/25/16 07:00 15:00 23:00 07:00 15:00 23:00 Intake Total 1460 ml 100 ml 3952 ml 1415 ml Balance 1460 ml 100 ml 3952 ml 1415 ml Intake Oral 360 ml 960 ml 240 ml IV Total 1100 ml 100 ml 2992 ml 1175 ml # Voids 2 3 2 # Bowel Movements 1 (Max Mckenzie MD, R2) Result Diagram: 11/23/16 0301 11/23/16 0301 Objective Remarks CONSTITUTIONAL/GEN: normally nourished, in NAD. sleeping in bed LUNGS: course rhonchi right chest anterior and posterior, diffuse wheezing. respiratory effort is normal. CARDIOVASCULAR: RR without murmur or gallop. No significant edema. GI/ABD: soft without masses, without organomegaly. NEURO: No focal deficits. MUSC: Extremities are normal in appearance. PSYCH/MENTAL STATUS: Alert and oriented x 3. Procedures bronchoscopy on 11-21-16 (Max Mckenzie MD, R2) A/P Assessment and Plan Mr. Oliveira is a 46yo with a past medical history of HTN, asthma, epilepsy, and 60 pack year smoking history presenting to the ED for cough with hemoptysis of 3 week duration and possible TB exposure. Chest XR taken in the ED shows a cavitary lesion. He is admitted to rule out TB vs fungal infection vs malignancy. Discharge Planning Pending workup of lung lesion. (Max Mckenzie MD, R2) Attending Attestation Patient seen and examined. Case reviewed and discussed with the resident team. Agree with plan of care as discussed with me and documented in the resident note. (Rober Morley MD) Problem List: (1) Cough with hemoptysis ICD Codes: R04.2 - Hemoptysis Status: Acute Plan: 3 week duration with possible TB exposure 1.5 months ago. Pt has a long history of tobacco use which puts him as risk for a possible malignancy. Chest XR- cavitary lesion CTA: 1. CT confirms the presence of a 5 cm cavitary mass in a basilar segment of the right upper lobe. Diagnostic considerations include both neoplastic and infectious etiologies, articularly fungal. 2. Borderline prominent right hilar and paratracheal lymph nodes likely associated with the cavitary lesion. -Pulmonology consult, appreciate recs * S/p bronchoscopy (11/21); biopsy taken * PFTs at bedside tomorrow * Bronchial Aspirate Culture- No growth in 48 hrs * Bronchial washings-no acid fast or fungal elements seen; normal respiratory laura * Bronchial washings * Fungal smear negative. Culture pending * Acid fast stain negative. Culture pending. 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 Final culture showed heavy growth of normal respiratory laura. -Sputum Fungal smear negative. Culture pending. -Sputum AFB stain: negative; culture pending -Blood cultures negative x 5 days -Myco/Tuberculosis PCR negative -Lung biopsy: preliminary result-benign (2) Asthma ICD Codes: J45.909 - Asthma Status: Chronic Plan: Diffuse wheezing on exam -Duonebs q4hrs scheduled -Albuterol nebs 2.5mg q2hr prn (3) Hypertension, benign ICD Codes: I10 - Benign hypertension Status: Chronic Plan: BP elevated -Increase lisinopril to 40mg daily -Hydralazine 10mg IV q6h PRN (4) Epilepsy ICD Codes: G40.909 - Epilepsy, unspecified, not intractable, without status epilepticus Status: Chronic Plan: Continue at home regimen - Tegretol 600mg po BID (5) History of prostate cancer ICD Codes: Z85.46 - Personal history of malignant neoplasm of prostate Status: Chronic Plan: Continue at home meds -Oxybutynin Chloride 5mg po q12hr -Phenazopyridine HCl 100mg po q8hr (6) Hyperlipemia ICD Codes: E78.5 - Hyperlipidemia, unspecified Status: Chronic Plan: Continue at home meds -Atorvastatin 80mg po HS (7) Normocytic anemia ICD Codes: D64.9 - Anemia, unspecified Status: Chronic Plan: Hemoglobin of 10.5 on admission. Stable from July 2016 Hgb trending down. No signs of bleeding -Continue to monitor (8) FEN Status: Acute Plan: Fluids -IV normal saline Electrolytes -Monitor and replace as needed Nutrition -Regular Diet GI prophylaxis -PRN DVT prophylaxis -Heparin (Max Mckenzie MD, R2) Problem Qualifiers (1) Asthma: (2) Epilepsy: (3) Hyperlipemia: Max Mckenzie MD, R2 Nov 25, 2016 09:42 Rober Morley MD Nov 25, 2016 10:34
[2016-11-25 11:05] LABS: AUTOMATED NEUTROPHIL # 2.5 TH/MM3 (1.8-7.7); BASOPHIL % 0.9 % (0.0-2.0); EOSINOPHIL # 0.4 TH/MM3 (0-0.4); EOSINOPHIL % 6.7 % (0.0-4.0); HEMATOCRIT 27.6 % (39.0-51.0); HEMO FLAGS DIFF FINAL; LYMPH % 36.6 % (9.0-44.0); LYMPHOCYTE # 1.9 TH/MM3 (1.0-4.8); MEAN CELL VOLUME 88.8 FL (80.0-100.0); MEAN CORPUSCULAR HEMOGLOBIN 28.9 PG (27.0-34.0); MEAN CORPUSCULAR HGB CONC 32.6 % (32.0-36.0); MONO % 8.7 % (0.0-8.0); NEUT % 47.1 % (16.0-70.0); PLATELET COUNT 436 TH/MM3 (150-450); RED BLOOD COUNT 3.11 MIL/MM3 (4.50-5.90); RED CELL DISTRIBUTION WIDTH 13.7 % (11.6-17.2); WHITE BLOOD COUNT 5.2 TH/MM3 (4.0-11.0)
[2016-11-25 12:00] VITALS: BP 147/70; PULSE 67; RESP 18; TEMP 97; O2SAT 97
--- NOTE | 2016-11-25 12:44 | HHI.PR ---
Subjective Remarks Feels better. No fever. AFB fungal stains negative . Path report pending. Has some cough. Objective Vital Signs Date Time Temp Pulse Resp B/P (MAP) Pulse Ox O2 Delivery O2 Flow Rate FiO2 11/25/16 08:00 97.5 61 18 159/71 (100) 96 11/25/16 00:00 96.8 61 17 144/71 (95) 98 11/24/16 20:00 97.2 65 17 176/74 (108) 98 11/24/16 16:00 97.7 65 18 156/70 (98) 96 I/O 11/24/16 11/24/16 11/24/16 11/25/16 11/25/16 11/25/16 07:00 15:00 23:00 07:00 15:00 23:00 Intake Total 1460 ml 100 ml 3952 ml 1415 ml Balance 1460 ml 100 ml 3952 ml 1415 ml Intake Oral 360 ml 960 ml 240 ml IV Total 1100 ml 100 ml 2992 ml 1175 ml # Voids 2 3 2 # Bowel Movements 1 Result Diagram: 11/25/16 1024 11/23/16 0301 Objective Remarks GENERAL: This moderately obese middle-aged -[place] male who is alert, in no acute distress. HEENT: Head normocephalic. Pupils are reactive and equal. Tongue is moist. Throat is clear Nasal mucosa clear. NECK: No bruits or thyroid enlargement. CHEST: Distant breath sounds. Few wheezes heard. No crackles. HEART: Heart sounds are regular S1-S2 with no murmur. No S3. ABDOMEN: The abdomen is soft and protuberant without masses or organomegaly or tenderness. Bowel sounds are active. EXTREMITIES: No lesions. No edema. Reflexes are 1+ with no gross motor deficits. SKIN: Skin showed no lesions. Assessment and Plan Assessment and Plan IMPRESSION 1. Cavitary lesion right upper lobe, rule out tuberculosis versus fungal disease. 2. Rule out malignancy. 3. He has COPD with chronic bronchitis and acute exacerbation. 4. History of hypertension. 5. History of prostate cancer. Plan : 1. Cont Antibiotics per ID 2. D/C Nebs . 3. Ventolin HFA , 2 puffs tid 4. Home if OK with ID 5. Await final Pathology report. Yojana Mari MD Nov 25, 2016 12:43
[2016-11-25] MEDS ORDERED: LEVA750T9 PO (15:02)
--- NOTE | 2016-11-25 15:13 | HHI.IDPN ---
Note Infectious Disease Note Patient feels okay. No fever. Denies Chest pain, SOB. No cough. Bronch AFB stain negative. Culture negative. Admitted with cold and flu-like symptoms. The patient has had cough for about 3 weeks with hemoptysis and night sweats. cavity mass on CXR. PAST MEDICAL HISTORY Asthma, seizure disorder, hypertension, hyperlipidemia. ALLERGIES MORPHINE. OBJECTIVE: Vital Signs Date Time Temp Pulse Resp B/P (MAP) Pulse Ox O2 Delivery O2 Flow Rate FiO2 11/25/16 12:00 97.0 67 18 147/70 (95) 97 11/25/16 08:00 97.5 61 18 159/71 (100) 96 11/25/16 00:00 96.8 61 17 144/71 (95) 98 11/24/16 20:00 97.2 65 17 176/74 (108) 98 11/24/16 16:00 97.7 65 18 156/70 (98) 96 Laboratory Tests Test 11/25/16 10:24 White Blood Count 5.2 TH/MM3 Red Blood Count 3.11 MIL/MM3 Hemoglobin 9.0 GM/DL Hematocrit 27.6 % Mean Corpuscular Volume 88.8 FL Mean Corpuscular Hemoglobin 28.9 PG Mean Corpuscular Hemoglobin Concent 32.6 % Red Cell Distribution Width 13.7 % Platelet Count 436 TH/MM3 Mean Platelet Volume 6.1 FL Neutrophils (%) (Auto) 47.1 % Lymphocytes (%) (Auto) 36.6 % Monocytes (%) (Auto) 8.7 % Eosinophils (%) (Auto) 6.7 % Basophils (%) (Auto) 0.9 % Neutrophils # (Auto) 2.5 TH/MM3 Lymphocytes # (Auto) 1.9 TH/MM3 Monocytes # (Auto) 0.5 TH/MM3 Eosinophils # (Auto) 0.4 TH/MM3 Basophils # (Auto) 0.0 TH/MM3 CBC Comment DIFF FINAL Differential Comment IMAGING: Chest X-Ray 11/22/16 0000 Signed Impressions: Service Date/Time: Tuesday, November 22, 2016 19:04 - CONCLUSION: There is more density within the cavitary mass in right upper lung and the overall size has not significantly changed. Georgia Le MD Chest X-Ray 11/19/16 0925 Signed Impressions: Service Date/Time: Saturday, November 19, 2016 09:33 - CONCLUSION: New cavitary mass in the right upper lobe. The differential diagnosis includes squamous cell carcinoma and fungal infection. Yuri Kaminski MD PHYSICAL EXAMINATION GENERAL: No acute distress. Awake, alert and oriented. HEENT: No icterus. NECK: Supple. No adenopathy or swelling or tenderness. LUNGS: Rhonchi at the right. upper lung. decreased BS on left. side. HEART: Regular S1-S2 without audible murmurs, rubs or gallops. ABDOMEN: Bowel sounds present, soft, nontender. EXTREMITIES: No edema. SKIN: No rash. NEURO: Non focal. PSYCHIATRIC: Calm and cooperative. IMPRESSION Cavitary lung lesion/hemoptysis. R/O Pneumonia vs TB vs fungal infection vs malignancy. AFB smear negative. Malignancy ruled out per pathology. RECOMMENDATIONS Stop Zosyn. I spoke to pathology. Bronch tissue specimen does not look like malignancy. Special pathology stains are negative for organisms. This could be atypical non TB mycobacteria which may take time to grow and therefore the culture will have to be followed while treating empirically. He can be discharged on PO Levaquin and follow up CXR and monitor the culture. Antibiotics will need to be changed if the cultures comes back positive. If culture comes back with mycobacterium abscessus he may need combination of antibiotics. Discussed with Dr. cook. He will follow up in her clinic. The above has been explained to the patient. De Ren MD Nov 25, 2016 15:13
--- NOTE | 2016-11-25 15:14 | HHI.DCPOC ---
Discharge Care Plan Diagnosis: (1) Cough with hemoptysis Goals to Promote Your Health * To prevent worsening of your condition and complications * To maintain your health at the optimal level Directions to Meet Your Goals Take your medications as prescribed Follow your dietary instruction Follow activity as directed Keep your appointments as scheduled Take your immunizations and boosters as scheduled If your symptoms worsen call your PCP, if no PCP go to Urgent Care Center or Emergency Room Smoking is Dangerous to Your Health. Avoid second hand smoke Call the 24-hour hour crisis hotline for domestic abuse at Lana Okeefe MD R1 Nov 25, 2016 15:13
--- NOTE | 2016-11-25 15:38 | HHI.DS ---
Discharge Summary Admission Date Nov 19, 2016 at 11:39 Discharge Date: Nov 25, 2016 Admitting Diagnosis cough with hemoptysis, r/o tb, htn, hx of prostrate cancer (1) Cough with hemoptysis Diagnosis: Principal Plan: 3 week duration with possible TB exposure 1.5 months ago. Pt has a long history of tobacco use which puts him as risk for a possible malignancy. Chest XR- cavitary lesion CTA: 1. CT confirms the presence of a 5 cm cavitary mass in a basilar segment of the right upper lobe. Diagnostic considerations include both neoplastic and infectious etiologies, articularly fungal. 2. Borderline prominent right hilar and paratracheal lymph nodes likely associated with the cavitary lesion. -Pulmonology consult, appreciate recs * S/p bronchoscopy (11/21); biopsy taken * PFTs at bedside tomorrow * Bronchial Aspirate Culture- No growth in 48 hrs * Bronchial washings-no acid fast or fungal elements seen; normal respiratory laura * Bronchial washings * Fungal smear negative. Culture pending * Acid fast stain negative. Culture pending. 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 Final culture showed heavy growth of normal respiratory laura. -Sputum Fungal smear negative. Culture pending. -Sputum AFB stain: negative; culture pending -Blood cultures negative x 5 days -Myco/Tuberculosis PCR negative -Lung biopsy: preliminary result-benign ICD Codes: R04.2 - Hemoptysis Status: Acute (2) Asthma Plan: Diffuse wheezing on exam -Duonebs q4hrs scheduled -Albuterol nebs 2.5mg q2hr prn ICD Codes: J45.909 - Asthma Status: Chronic (3) Hypertension, benign Plan: BP elevated -Increase lisinopril to 40mg daily -Hydralazine 10mg IV q6h PRN ICD Codes: I10 - Benign hypertension Status: Chronic (4) Epilepsy Plan: Continue at home regimen - Tegretol 600mg po BID ICD Codes: G40.909 - Epilepsy, unspecified, not intractable, without status epilepticus Status: Chronic (5) History of prostate cancer Plan: Continue at home meds -Oxybutynin Chloride 5mg po q12hr -Phenazopyridine HCl 100mg po q8hr ICD Codes: Z85.46 - Personal history of malignant neoplasm of prostate Status: Chronic (6) Hyperlipemia Plan: Continue at home meds -Atorvastatin 80mg po HS ICD Codes: E78.5 - Hyperlipidemia, unspecified Status: Chronic (7) Normocytic anemia Plan: Hemoglobin of 10.5 on admission. Stable from July 2016 Hgb trending down. No signs of bleeding -Continue to monitor ICD Codes: D64.9 - Anemia, unspecified Status: Chronic (8) FEN Plan: Fluids -IV normal saline Electrolytes -Monitor and replace as needed Nutrition -Regular Diet GI prophylaxis -PRN DVT prophylaxis -Heparin Status: Acute Procedures bronchoscopy on 11-21-16 Brief History Pt is a 46 yo male who presented to the ED with cough. He is concerned because he and his girlfriend were recently helping out an older (55yo) for about a month because her home got condemned because of filthiness. She started coughing really bad when she moved in. They thought it was a cold. It was a really hard hacking cough. She refused to go to the hospital. They made her move out about 2 weeks ago because of her refusal to help out. His cough started 3 weeks ago. He describes it as a simple cough. It would get worse when he would lay on his right side at night which caused him to keep coughing and not able to breathe. He would sometimes cough up blood. There were a few drops of blood in sputum. He described the sputum as yellow and brown. It also created a foul taste in his mouth. No fever, but had chills at night. However, he would have night sweats that also started 2 weeks ago. Had chest pain in his right chest when he would cough that started last week. He frequently comes in contact with the homeless when they come in his home. He stays in a rooming house. No cave diving, no bat droppings contact, no [place] travel. CBC/BMP: 11/25/16 1024 11/23/16 0301 Significant Findings Laboratory Tests Test 11/23/16 03:01 11/25/16 10:24 Red Blood Count 3.10 MIL/MM3 (4.50-5.90) 3.11 MIL/MM3 (4.50-5.90) Hemoglobin 8.9 GM/DL (13.0-17.0) 9.0 GM/DL (13.0-17.0) Hematocrit 27.5 % (39.0-51.0) 27.6 % (39.0-51.0) Mean Platelet Volume 6.0 FL (7.0-11.0) 6.1 FL (7.0-11.0) Monocytes (%) (Auto) 8.7 % (0.0-8.0) Eosinophils (%) (Auto) 6.7 % (0.0-4.0) Imaging Last Impressions Chest X-Ray 11/22/16 0000 Signed Impressions: Service Date/Time: Tuesday, November 22, 2016 19:04 - CONCLUSION: There is more density within the cavitary mass in right upper lung and the overall size has not significantly changed. Georgia Le MD CT Angiography 11/20/16 2018 Signed Impressions: Service Date/Time: November 23:04 - CONCLUSION: 1. CT confirms the presence of a 5 cm cavitary mass in a basilar segment of the right upper lobe. Diagnostic considerations include both neoplastic and infectious etiologies, particularly fungal. 2. Borderline prominent right hilar and paratracheal lymph nodes likely associated with the cavitary lesion. 3. Nonspecific pleural thickening posterior medially in the right base. 4. No pulmonary embolus. Heber Fabian MD PE at Discharge CONSTITUTIONAL/GEN: normally nourished, in NAD. sleeping in bed LUNGS: course rhonchi right chest anterior and posterior, diffuse wheezing. respiratory effort is normal. CARDIOVASCULAR: RR without murmur or gallop. No significant edema. GI/ABD: soft without masses, without organomegaly. NEURO: No focal deficits. MUSC: Extremities are normal in appearance. PSYCH/MENTAL STATUS: Alert and oriented x 3. Hospital Course Mr. Oliveira is a 46-year-old male with a past history of hypertension, asthma, epilepsy, tobacco use who presented to the ED for cough with hemoptysis of 3 weeks duration. He was admitted on 11/19/16 for tuberculosis rule out. Chest x-ray done in the ED showed a cavitary lesion in the right upper lobe of his lungs. CT angiography later confirmed the presence of a 5 cm cavitary mass and a basal lower segment of the right upper lobe. Infectious disease was consulted. Tuberculosis DNA PCR was found to be negative. Pulmonology was then consulted and a prior bronchoscopy was performed on 11/21/16. Lung biopsy was found to be negative for malignancy. Fungal cultures and mycobacterial cultures are still pending. However, fungal smears, acid-fast stains, and bronchial aspirate were found to be negative. The patient is being discharged on empirical Levaquin 750 mg per day for 3 weeks until the cultures have resulted, per ID recommendations. If found to have growth of Mycobacterium then the treatment will either re-assessed or continued for another 3 weeks. Serial chest x-rays should be performed. The first should be done 2 weeks after discharge. Pt Condition on Discharge: Stable Discharge Disposition: Discharge Home Discharge Instructions DIET: Follow Instructions for: As Tolerated, No Restrictions Activities you can perform: Regular-No Restrictions Follow up Referrals: PCP Follow-up - 1 Week with KIMBERLY OKEEFE New Orders: X-RAY CHEST PA & LAT - 2 Weeks New Medications: Levofloxacin (Levaquin) 750 Mg Tablet 750 MG PO DAILY for Infection for 21 Days, % Continued Medications: Carbamazepine (Tegretol) 200 Mg Tab 600 MG PO BID, #60 TAB 0 Refills Lisinopril (Lisinopril) 20 Mg Tab 20 MG PO DAILY, #30 TAB 0 Refills Oxybutynin (Ditropan) 5 Mg Tab 5 MG PO Q12HR for Urinary Symptom Managemen, #90 TAB 3 Refills Phenazopyridine (Pyridium) 100 Mg Tab 100 MG PO Q8H PRN for DYSURIA, #30 TAB Rosuvastatin (Crestor) 40 Mg Tab 40 MG PO HS for Cholesterol Management, #30 TAB 0 Refills Tadalafil (Cialis) 5 Mg Tab 5 MG PO DAILY, #30 TAB 3 Refills Do not exceed 1 dose/day. Kimberly Okeefe MD R1 Nov 25, 2016 15:38
[2016-11-26] MEDS ORDERED: LISINOPRIL 20 MG TAB PO SCH (09:00)
[2016-12-03] MEDS ORDERED: [UNRECOGNIZED DRUG - CODE] EXTERNAL (15:23)
[2016-12-03] MEDS ORDERED: VIAG100T PO (15:24)
--- NOTE | 2016-12-16 10:27 | RSPPFT ---
DATE OF PROCEDURE: 11/25/16 COMMENTS: Spirometry demonstrates an FEV1 of 1.7 at 52% of predicted, FVC of 2.5 at 63%, FEF 25-75 is 29%. Post-bronchodilator study demonstrated improvements in the FEV1 and FVC. Lung volumes were not completed. Flow volume loops suggest an obstructive pattern. IMPRESSION: 1. Moderate obstructive disease. 2. Significant response to use of bronchodilator indicating reversibility.
[2016-12-18] MEDS ORDERED: LEVO750T3 PO ×2 (16:21→16:32)
[2016-12-23] MEDS ORDERED: [UNRECOGNIZED DRUG - CODE] EXTERNAL (14:19)
== END 2016-11-25 16:18 | disposition home or self-care (01) | DRG 167 ==
LOC: NEPC 09:20 → NEDA 11:39 → N07A 16:42
PROVIDERS: ADMIT Family Medicine; ATTEND Family Medicine
PROC: 0B9F8ZX Drainage of Right Lower Lung Lobe, Via Natural or Artificial Opening Endoscopic, Diagnostic (ICD-10-PCS; 2016-11-21)
PROC: 0B9C8ZX Drainage of Right Upper Lung Lobe, Via Natural or Artificial Opening Endoscopic, Diagnostic (ICD-10-PCS; 2016-11-21)
PROC: 0B9G8ZX Drainage of Left Upper Lung Lobe, Via Natural or Artificial Opening Endoscopic, Diagnostic (ICD-10-PCS; 2016-11-21)
PROC: 0B9D8ZX Drainage of Right Middle Lung Lobe, Via Natural or Artificial Opening Endoscopic, Diagnostic (ICD-10-PCS; 2016-11-21)
PROC: 0BBC8ZX Excision of Right Upper Lung Lobe, Via Natural or Artificial Opening Endoscopic, Diagnostic (ICD-10-PCS; principal; 2016-11-21 10:14)
DX: J98.4 Other disorders of lung (principal); J44.0 Chronic obstructive pulmonary disease with (acute) lower respiratory infection; R04.2 Hemoptysis; J44.1 Chronic obstructive pulmonary disease with (acute) exacerbation; I10 Essential (primary) hypertension; Z85.46 Personal history of malignant neoplasm of prostate; Z86.14 Personal history of Methicillin resistant Staphylococcus aureus infection; F17.210 Nicotine dependence, cigarettes, uncomplicated; G47.30 Sleep apnea, unspecified; G40.909 Epilepsy, unspecified, not intractable, without status epilepticus; D64.9 Anemia, unspecified; E78.5 Hyperlipidemia, unspecified; J20.9 Acute bronchitis, unspecified
CPT/HCPCS: 71010; 71275; 76937; 80048; 80053; 81001; 82550; 82552; 84484; 85025; 85027; 85610; 85730; 87015; 87040; 87070; 87071; 87102; 87116; 87205; 87206; 87556; 87798; 88112; 88305; 88312; 94060; 94150; 94640; 94664; J0171; J1644; J2250; J2405; J2543; J3010; J7030; J7613; Q9967

== ENCOUNTER → 2016-12-12 | Outpatient (CLI) | payer MEDICARE, OTHER ==
[~2016-12-12] MED LIST changes: -CIAL5TAB PO; +LEVO750T3 PO; -OXYB5TAB10 PO; +PHEN-524 PO; -PHEN0.4T PO; +VIAG100T PO; +[UNRECOGNIZED DRUG - CODE] EXTERNAL
[2016-12-12 12:57] LABS: BICARBONATE 26.1 MEQ/L (21.0-32.0); POTASSIUM 4.1 MEQ/L (3.5-5.1)
== END ==
LOC: CLAB 11:57
PROVIDERS: ATTEND Internal Medicine Sleep Medicine
DX: E87.8 Other disorders of electrolyte and fluid balance, not elsewhere classified (principal); K76.0 Fatty (change of) liver, not elsewhere classified
CPT/HCPCS: 36415; 80048; 84450; 84460

== ENCOUNTER 2017-01-07 07:48 | Emergency (ER) | payer MEDICARE, OTHER ==
[~2017-01-07] VITALS: Ht 180.3 cm; Wt 100.0 kg
[~2017-01-07 07:48] MED LIST changes: -PHEN-524 PO
[2017-01-07 07:53] VITALS: BP 152/73; PULSE 70; RESP 20; TEMP 98.2; O2SAT 96
[2017-01-07] MEDS ORDERED: SODIUM CHLORIDE 0.9% FLUSH 10 ML FLUSH IVF PRN (08:00)
--- NOTE | 2017-01-07 08:07 | PD ---
HPI Chief Complaint: Seizure Time Seen by Provider: 07:55 Travel History International Travel<30 days: No Contact w/Intl Traveler<30days: No Traveled to known affect area: No History of Present Illness HPI 46 y/o male presents with witness generalized tonic-clonic seizure. He was given 2 mg of Ativan in route for seizure activity. His vitals were stable. Patient states on his doctor which his would know the name decreased his Tegretol dosage from 600 mg to 400 mg to change him to something else. He states that he's on the Levaquin for some sort of lung infection and that his notes more. He denies any specific complaints at this time other than when he has a seizure it makes his eyes feel weird. History is limited from patient. Ambulance team and confirm history. who came from triage states that Dr. Rivers is his seizure specialist and when his Tegretol level was high they decreased his evening dose to 400 mg and kept his morning dose at 600 mg. She states she's on the Levaquin for a bad lung infection where he had a 5 cm thing on his chest x-ray and he was in the hospital for a long time here. He states that he is to be on the treatment for weeks. She does not know the type of infection. She states it was not tuberculosis. She states no other complaints for him. PFSH Past Medical History Arthritis: No Asthma: Yes Autoimmune Disease: No Blood Disorders: No Anxiety: No Depression: No Heart Rhythm Problems: No Cancer: Yes (PROSTATE CA) Cardiovascular Problems: No High Cholesterol: Yes Chemotherapy: No Chest Pain: No Congestive Heart Failure: No COPD: No Cerebrovascular Accident: No Diabetes: No Diminished Hearing: No Endocrine: No Gastrointestinal Disorders: Yes (GERD rectal bleeding from hemmorhoids) GERD: No Glaucoma: No Genitourinary: Yes (CATHETER IN PLACE POST PROSTATECTOMY) Headaches: No Hepatitis: No Hiatal Hernia: No Heparin Induced Thrombocytopen: No Hypertension: Yes Immune Disorder: No Kidney Stones: No Medical other: Yes (BLEEDING HEMORRHOIDS) Musculoskeletal: Yes (BACK PAIN) Neurologic: Yes (SEIZURES SINCE A CHILD) Psychiatric: No Reproductive: No Respiratory: Yes (COPD, SLEEP APNEA, USES A CPAP MACHINE) Immunizations Current: Yes Migraines: No Myocardial Infarction: No Radiation Therapy: No Renal Failure: No Seizures: Yes Sickle Cell Disease: No Sleep Apnea: No Thyroid Disease: No Ulcer: No Tetanus Vaccination: > 5 Years Influenza Vaccination: No PNEUMOCCOCAL Vaccine (Year): 2 Past Surgical History Abdominal Surgery: No AICD: No Appendectomy: Yes (DENIES) Arteriovenous Shunt: No Body Medical Devices: HARDWARE IN R ANKLE Cardiac Surgery: No Cholecystectomy: No Ear Surgery: No Endocrine Surgery: No Eye Surgery: No Genitourinary Surgery: Yes (RADICAL PROSTATECTOMY) Gynecologic Surgery: No Insulin Pump: No Joint Replacement: No Oral Surgery: No Pacemaker: No Thoracic Surgery: No Other Surgery: Yes Social History Alcohol Use: No Tobacco Use: Yes Substance Use: Yes (marijuana) Allergies-Medications (Allergen,Severity, Reaction): Coded Allergies: morphine (Verified Allergy, Severe, Itching, 01/07/17) *MDRO Multi-Drug Resistant Organism (Verified Adverse Reaction, Unknown, 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 Reported Meds & Prescriptions Reported Meds & Active Scripts Active Phenobarbital 60 Mg Tab 60 Mg PO BID 14 Days [facility] Male Inco (Incontinence Supplies) 1 Mis Mis Bar EXTERNAL DAILY PRN use as directed Levofloxacin 750 Mg Tablet 750 Mg PO DAILY 42 Days Viagra (Sildenafil Citrate) 100 Mg Tab 100 Mg PO DAILY PRN Reported Lisinopril 20 Mg Tab 20 Mg PO DAILY Crestor (Rosuvastatin Calcium) 40 Mg Tab 40 Mg PO HS Tegretol (Carbamazepine) 200 Mg Tab 600 Mg PO BID Review of Systems Except as stated in HPI: all other systems reviewed are Neg Physical Exam Narrative GENERAL: Well-nourished, well-developed patient. SKIN: Warm and dry. HEAD: Normocephalic and atraumatic. EYES: No injection or drainage. ENT: No nasal drainage noted. NECK: Supple, trachea midline. CARDIOVASCULAR: Regular rate and rhythm RESPIRATORY: Breath sounds equal bilaterally at apices. No accessory muscle use. GASTROINTESTINAL: Abdomen soft, non-tender, nondistended. EXTREMITIES: No edema. NEUROLOGICAL: Drowsy but awakens to voice. Moves all extremities, clear speech Data Data Last Documented VS Vital Signs Date Time Temp Pulse Resp B/P (MAP) Pulse Ox O2 Delivery O2 Flow Rate FiO2 01/07/17 07:53 98.2 70 20 152/73 (99) 96 Orders Orders Complete Blood Count With Diff (01/07/17 07:57) Basic Metabolic Panel (Bmp) (01/07/17 07:57) Carbamazepine (Tegretol) (01/07/17 07:57) Electrocardiogram (01/07/17 ) Ct Brain W/O Iv Contrast(Rout) (01/07/17 ) Ecg Monitoring (01/07/17 07:57) Iv Access Insert/Monitor (01/07/17 07:57) Oximetry (01/07/17 07:57) Sodium Chloride 0.9% Flush (Ns Flush) (01/07/17 08:00) Chest, Single Ap (01/07/17 ) Phenobarbital Inj (Luminal Inj) (01/07/17 09:30) Labs Laboratory Tests Test 01/07/17 08:00 White Blood Count 4.7 TH/MM3 Red Blood Count 4.27 MIL/MM3 Hemoglobin 12.9 GM/DL Hematocrit 38.8 % Mean Corpuscular Volume 90.8 FL Mean Corpuscular Hemoglobin 30.3 PG Mean Corpuscular Hemoglobin Concent 33.4 % Red Cell Distribution Width 16.2 % Platelet Count 319 TH/MM3 Mean Platelet Volume 7.3 FL Neutrophils (%) (Auto) 28.3 % Lymphocytes (%) (Auto) 54.1 % Monocytes (%) (Auto) 9.1 % Eosinophils (%) (Auto) 6.4 % Basophils (%) (Auto) 2.1 % Neutrophils # (Auto) 1.3 TH/MM3 Lymphocytes # (Auto) 2.5 TH/MM3 Monocytes # (Auto) 0.4 TH/MM3 Eosinophils # (Auto) 0.3 TH/MM3 Basophils # (Auto) 0.1 TH/MM3 CBC Comment DIFF FINAL Differential Comment Blood Urea Nitrogen 10 MG/DL Creatinine 0.80 MG/DL Random Glucose 114 MG/DL Calcium Level 9.3 MG/DL Sodium Level 135 MEQ/L Potassium Level 4.0 MEQ/L Chloride Level 103 MEQ/L Carbon Dioxide Level 26.2 MEQ/L Anion Gap 6 MEQ/L Estimat Glomerular Filtration Rate 127 ML/MIN Carbamazepine (Tegretol) Level 11.1 MCG/ML MDM Medical Decision Making Medical Screen Exam Complete: Yes Emergency Medical Condition: Yes Medical Record Reviewed: Yes (patient here in November with 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 No evidence of acute intracranial pathology. No masses are identified. Gurinder Sosa MD Chest X-Ray 01/07/17 0000 Signed Impressions: Service Date/Time: Saturday, January 07, 2017 08:09 - CONCLUSION: 1. No acute cardiopulmonary disease. Gurinder Sosa MD Differential Diagnosis Subtherapeutic seizure medication, intracranial, electrolyte abnormality Narrative Course Will check blood work, chest x-ray, CT brain and discuss with his neurologist ed workup no acute, will discuss with his neurologist as therapeutic on Tegretol no additional seizure here, given phenobarbital, Patient denies any new complaints and states that they are feeling better. all questions answered. Patient knows that follow up is incumbent on them and to return to the emergency room immediately if new or worsening symptoms develop. Patient given strict return precautions, vitals reviewed and are normal, agrees to further workup as an outpatient. at bedside and updated as well Physician Communication Physician Communication dr galan states to give 300mg iv times one of phenobarbital and send out on phenobarbital 60mg po bid and follow in office Diagnosis Primary Impression: Seizure Patient Instructions: General Instructions Additional Instructions: dr rivers call for appointment this week, return as needed Med/Other Pt SpecificInfo: Prescription(s) given Scripts Phenobarbital (Phenobarbital) 60 Mg Tab 60 MG PO BID for Control Seizures for 14 Days, #28 TAB 0 Refills Prov: Juliana Dove MD 01/07/17 Disposition: 01 DISCHARGE HOME Condition: Stable Juliana Dove MD Jan 07, 2017 08:07
--- NOTE | 2017-01-07 08:14 | RADRPT ---
EXAM DATE/TIME: 01/07/2017 08:09 [facility] COMPARISON: CHEST SINGLE AP, November 22, 2016, 19:04. INDICATIONS : Seizure. MEDICAL HISTORY : Hypertension. Carcinoma, prostate. Tuberculosis. Seizures. SURGICAL HISTORY : Appendectomy. ENCOUNTER: Initial ACUITY: 1 day PAIN SCORE: Non-responsive. LOCATION: Bilateral chest FINDINGS: A single view of the chest demonstrates the lungs to be symmetrically aerated without evidence of mas s, infiltrate or effusion. The cardiomediastinal contours are unremarkable. Osseous structures are intact. CONCLUSION: 1. No acute cardiopulmonary disease. Gurinder Sosa MD on January 07, 2017 at 8:12 Board Certified Radiologist. This report was verified electronically.
--- NOTE | 2017-01-07 08:33 | RADRPT ---
EXAM DATE/TIME: 01/07/2017 08:14 [facility] COMPARISON: CT BRAIN W/O CONTRAST, December 24, 2015, 10:15. INDICATIONS : Multiple seizures . RADIATION DOSE: 41.21 CTDIvol (mGy) MEDICAL HISTORY : Chronic obstructive pulmonary disease. Seizures. SURGICAL HISTORY : Prostatectomy. ENCOUNTER: Initial ACUITY: 1 day PAIN SCALE: 7/10 LOCATION: Bilateral cranial TECHNIQUE: Multiple contiguous axial images were obtained of the head. Using automated exposure control and adj ustment of the mA and/or kV according to patient size, radiation dose was kept as low as reasonably a chievable to obtain optimal diagnostic quality images. DICOM format image data is available electro nically for review and comparison. FINDINGS: CEREBRUM: The ventricles are normal for age. No evidence of midline shift, mass lesion, hemorrhage or acute in farction. No extra-axial fluid collections are seen. POSTERIOR FOSSA: The cerebellum and brainstem are intact. The 4th ventricle is midline. The cerebellopontine angle i s unremarkable. EXTRACRANIAL: The visualized portion of the orbits is intact. SKULL: The calvaria is intact. No evidence of skull fracture. CONCLUSION: 1. No evidence of acute intracranial pathology. No masses are identified. Gurinder Sosa MD on January 07, 2017 at 8:30 Board Certified Radiologist. This report was verified electronically.
[2017-01-07 08:41] LABS: AUTOMATED NEUTROPHIL # 1.3 TH/MM3 (1.8-7.7); BASOPHIL # 0.1 TH/MM3 (0-0.2); BASOPHIL % 2.1 % (0.0-2.0); EOSINOPHIL # 0.3 TH/MM3 (0-0.4); EOSINOPHIL % 6.4 % (0.0-4.0); HEMATOCRIT 38.8 % (39.0-51.0); HEMO FLAGS DIFF FINAL; LYMPH % 54.1 % (9.0-44.0); LYMPHOCYTE # 2.5 TH/MM3 (1.0-4.8); MEAN CELL VOLUME 90.8 FL (80.0-100.0); MEAN CORPUSCULAR HEMOGLOBIN 30.3 PG (27.0-34.0); MEAN CORPUSCULAR HGB CONC 33.4 % (32.0-36.0); MONO % 9.1 % (0.0-8.0); NEUT % 28.3 % (16.0-70.0); PLATELET COUNT 319 TH/MM3 (150-450); RED BLOOD COUNT 4.27 MIL/MM3 (4.50-5.90); RED CELL DISTRIBUTION WIDTH 16.2 % (11.6-17.2); WHITE BLOOD COUNT 4.7 TH/MM3 (4.0-11.0)
[2017-01-07 08:52] LABS: BICARBONATE 26.2 MEQ/L (21.0-32.0)
[2017-01-07] MEDS ORDERED: PHEN-524 PO (09:27)
[2017-01-07 10:38] VITALS: BP 136/58; PULSE 66; RESP 16; O2SAT 99
--- NOTE | 2017-01-07 14:17 | EKG ---
Date Performed: 01/07/2017 Time Performed: 08:55:53 PTAGE: 46 years EKG: Sinus rhythm INCOMPLETE RIGHT BUNDLE BRANCH BLOCK ABNORMAL ECG PREVIOUS TRACING : 12/24/2015 09.56 DOCTOR: Pramod Carpio Interpretating Date/Time 01/07/2017 14:15:55
== END 2017-01-07 12:38 | disposition home or self-care (01) ==
LOC: NEPE 07:48
DX: R56.9 Unspecified convulsions (principal); J45.909 Unspecified asthma, uncomplicated; I45.10 Unspecified right bundle-branch block; R94.31 Abnormal electrocardiogram [ECG] [EKG]; K21.9 Gastro-esophageal reflux disease without esophagitis; I10 Essential (primary) hypertension; K64.9 Unspecified hemorrhoids; J44.9 Chronic obstructive pulmonary disease, unspecified; Z72.0 Tobacco use
CPT/HCPCS: 70450; 71010; 80048; 80156; 85025; 93005; 96374; 99285; J2560

== ENCOUNTER → 2017-05-04 | Outpatient (CLI) | payer MEDICARE, OTHER ==
[~2017-05-04] MED LIST changes: +PHEN-524 PO
== END ==
LOC: CLAB 12:20
PROVIDERS: ATTEND Urology
DX: C61 Malignant neoplasm of prostate (principal)
CPT/HCPCS: 36415; 84153

== ENCOUNTER 2017-06-18 09:26 | Emergency (ER) | payer MEDICARE, OTHER ==
[~2017-06-18] VITALS: Ht 180.3 cm; Wt 115.0 kg
[2017-06-18 09:37] VITALS: BP 188/74; PULSE 84; RESP 20; TEMP 99.1; O2SAT 94
[2017-06-18] MEDS ORDERED: KEPP10002 PO (09:53)
[2017-06-18] MEDS ORDERED: RESP: ALBUTEROL 2.5 MG/IPRATROPIUM 0.5 MG NEB (SCH) NEB ONE (10:15)
[2017-06-18] MEDS ORDERED: methylPREDNISolone SOD SUCC 125 MG/2 ML VIAL IM ONE (10:15)
[2017-06-18 10:22] VITALS: BP 168/70
--- NOTE | 2017-06-18 10:33 | RADRPT ---
EXAM DATE/TIME: 06/18/2017 10:26 [facility] COMPARISON: CHEST SINGLE AP, January 07, 2017, 8:09. INDICATIONS : Cough and flu symptoms. MEDICAL HISTORY : Chronic obstructive pulmonary disease. Asthma. SURGICAL HISTORY : None. ENCOUNTER: Initial ACUITY: 2 days PAIN SCORE: 7/10 LOCATION: Bilateral chest FINDINGS: The cardiac and mediastinal contours are within normal limits. The lungs demonstrate an area of linea r atelectasis in the right upper lobe. This is similar to previous dated 01/07/17. There is no pleura l effusion. No pneumothorax is seen. The osseous structures are grossly intact. CONCLUSION: 1. Small area of atelectasis in the right upper lobe. Sheldon Solitario MD on June 18, 2017 at 10:30 Board Certified Radiologist. This report was verified electronically.
[2017-06-18] MEDS ORDERED: OSEL75 PO ×2 (10:35→10:47)
--- NOTE | 2017-06-18 10:42 | PD ---
HPI Chief Complaint: Cold / Flu Symptoms Time Seen by Provider: 09:53 Travel History International Travel<30 days: No Contact w/Intl Traveler<30days: No Traveled to known affect area: No History of Present Illness HPI 46-year-old male presents to the emergency room for evaluation of cold and flu symptoms for the past day. His was diagnosed with influenza and started on Tamiflu yesterday. Patient symptoms include nonproductive cough, congestion , sore throat, and subjective fevers. He has not actually taken his temperature. He has history of hypertension, seizures, COPD, and asthma. He has not taken anything [id number] for symptoms. His gave him a dose of her Tamiflu. He denies nausea or vomiting. PFSH Past Medical History Arthritis: No Asthma: Yes Autoimmune Disease: No Blood Disorders: No Anxiety: No Depression: No Heart Rhythm Problems: No Cancer: Yes (PROSTATE CA) Cardiovascular Problems: No High Cholesterol: Yes Chemotherapy: No Chest Pain: No Congestive Heart Failure: No COPD: No Cerebrovascular Accident: No Diabetes: No Diminished Hearing: No Endocrine: No Gastrointestinal Disorders: Yes GERD: No Glaucoma: No Genitourinary: Yes Headaches: No Hepatitis: No Hiatal Hernia: No Heparin Induced Thrombocytopen: No Hypertension: Yes Immune Disorder: No Kidney Stones: No Medical other: Yes (BLEEDING HEMORRHOIDS) Musculoskeletal: Yes Neurologic: Yes (SEIZURES SINCE A CHILD) Psychiatric: No Reproductive: No Respiratory: Yes (COPD, SLEEP APNEA, USES A CPAP MACHINE) Immunizations Current: Yes Migraines: No Myocardial Infarction: No Radiation Therapy: No Renal Failure: No Seizures: Yes Sickle Cell Disease: No Sleep Apnea: No Thyroid Disease: No Ulcer: No Tetanus Vaccination: > 5 Years PNEUMOCCOCAL Vaccine (Year): 2 Past Surgical History Abdominal Surgery: No AICD: No Appendectomy: Yes (DENIES) Arteriovenous Shunt: No Body Medical Devices: HARDWARE IN R ANKLE Cardiac Surgery: No Cholecystectomy: No Ear Surgery: No Endocrine Surgery: No Eye Surgery: No Genitourinary Surgery: Yes (RADICAL PROSTATECTOMY) Gynecologic Surgery: No Insulin Pump: No Joint Replacement: No Neurologic Surgery: No Oral Surgery: No Pacemaker: No Thoracic Surgery: No Other Surgery: Yes Social History Alcohol Use: No Tobacco Use: Yes Substance Use: Yes (marijuana) Allergies-Medications (Allergen,Severity, Reaction): Coded Allergies: morphine (Verified Allergy, Severe, Itching, 06/18/17) *MDRO Multi-Drug Resistant Organism (Verified Adverse Reaction, Unknown, ) 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 Reported Meds & Prescriptions Reported Meds & Active Scripts Active Phenobarbital 60 Mg Tab 60 Mg PO BID 14 Days Bard Arnoldo Krishnan Inco (Incontinence Supplies) 1 Mis Mis Bar EXTERNAL DAILY PRN use as directed Levofloxacin 750 Mg Tablet 750 Mg PO DAILY 42 Days Viagra (Sildenafil Citrate) 100 Mg Tab 100 Mg PO DAILY PRN Reported Keppra (Levetiracetam) 1,000 Mg Tab 1,000 Mg PO BID Lisinopril 20 Mg Tab 20 Mg PO DAILY Crestor (Rosuvastatin Calcium) 40 Mg Tab 40 Mg PO HS Tegretol (Carbamazepine) 200 Mg Tab 600 Mg PO BID Review of Systems Except as stated in HPI: all other systems reviewed are Neg Physical Exam Narrative GENERAL: Well-nourished, well-developed male in no acute distress. Afebrile. Ambulatory. SKIN: Focused skin assessment warm/dry. HEAD: Normocephalic. EYES: No scleral icterus. No injection or drainage. ENT: Mucosa pink and moist. No erythema or exudates. No uvular edema. No uvular , palatal, or tonsillar deviation. Airway patent. Nasal turbinates appear normal without nasal blood, purulent drainage or septal hematoma. EARS: Bilateral pinnae and external canals appear within normal limits. Bilateral tympanic membranes without erythema, dullness or perforation. NECK: Supple, trachea midline. No JVD or lymphadenopathy. CARDIOVASCULAR: Regular rate and rhythm without murmurs, gallops, or rubs. RESPIRATORY: Breath sounds equal bilaterally. No accessory muscle use. Bilateral rhonchi, wheezes in all lung patel. Data Data Last Documented VS Vital Signs Date Time Temp Pulse Resp B/P (MAP) Pulse Ox O2 Delivery O2 Flow Rate FiO2 06/18/17 10:22 168/70 (102) 06/18/17 09:37 99.1 84 20 94 Orders Orders Influenzae A/B Antigen (06/18/17 09:45) Chest, Pa & Lat (06/18/17 ) Methylprednisolone So Succ Inj (Solumedr (06/18/17 10:15) Albuterol-Ipratropium Neb (Duoneb Neb) (06/18/17 10:15) MDM Medical Decision Making Medical Screen Exam Complete: Yes Emergency Medical Condition: Yes Medical Record Reviewed: Yes Differential Diagnosis Viral syndrome, influenza, asthma Narrative Course 46-year-old male with history of COPD and asthma presents to the emergency room for evaluation of cough and flu symptoms that started yesterday. His has influenza and is on Tamiflu. Patient denies any objective fevers. He is afebrile and well-appearing in the emergency room. Vital signs stable. Resting comfortably in bed. Patient has bilateral wheezes and rhonchi Duo nebs in the emergency room. Influenza is negative. Chest x-ray is negative. Because patient's is being treated for influenza, he will be discharged with prescription for the same. Told to follow-up with PCP or return for worsening symptoms. He understands and agrees to plan. Diagnosis Primary Impression: Viral illness Additional Impression: Asthma Qualified Codes: J45.21 - Mild intermittent asthma with (acute) exacerbation Referrals: Primary Care Physician Additional Instructions: Tamiflu as directed, until gone. Prednisone as directed, until gone. Tessalon Perles as directed, as needed for cough. Follow-up with PCP. Return for worsening symptoms. Med/Other Pt SpecificInfo: Prescription(s) given Scripts Oseltamivir (Tamiflu) 75 Mg Cap 75 MG PO BID for Mgmt Viral Infection for 5 Days, #10 CAP 0 Refills Prov: Woodrow Harry MD 06/18/17 Disposition: 01 DISCHARGE HOME Condition: Stable Hallie Rodríguez Jun 18, 2017 10:42
[2017-06-18] MEDS ORDERED: BENZ100 PO (10:44)
[2017-06-18] MEDS ORDERED: PRED20 PO (10:44)
[2017-06-18 10:45] VITALS: O2SAT 93
== END 2017-06-18 11:17 | disposition home or self-care (01) ==
LOC: NEPD 09:26
DX: B34.9 Viral infection, unspecified (principal); J45.909 Unspecified asthma, uncomplicated; J44.9 Chronic obstructive pulmonary disease, unspecified; I10 Essential (primary) hypertension; R56.9 Unspecified convulsions; E78.00 Pure hypercholesterolemia, unspecified; Z88.5 Allergy status to narcotic agent; Z72.0 Tobacco use; Z79.899 Other long term (current) drug therapy
CPT/HCPCS: 71046; 87804; 94664; 96372; 99284; J2930

== ENCOUNTER → 2017-07-29 | Outpatient (CLI) | payer MEDICARE, OTHER ==
[~2017-07-29] MED LIST changes: +BENZ100 PO; +KEPP10002 PO; +OSEL75 PO; +PRED20 PO
== END ==
LOC: CLAB 15:41
PROVIDERS: ATTEND Psychiatry & Neurology Neurology
DX: Z51.81 Encounter for therapeutic drug level monitoring (principal)
CPT/HCPCS: 36415; 80156; 80177

== ENCOUNTER → 2017-07-30 | Outpatient (CLI) | payer MEDICARE, OTHER | LOC: CLAB 09:27 | PROVIDERS: ATTEND Psychiatry & Neurology Neurology | DX: Z51.81 Encounter for therapeutic drug level monitoring (principal) | CPT/HCPCS: 36415; 80156 ==

== ENCOUNTER 2017-09-03 08:08 | Observation (INO) | payer MEDICARE, OTHER ==
[~2017-09-03] VITALS: Ht 175.3 cm; Wt 107.5 kg
[2017-09-03 08:11] VITALS: BP 160/115; PULSE 81; RESP 24; TEMP 97.5; O2SAT 100
[2017-09-03 08:25] VITALS: BP 129/73; PULSE 61; RESP 16; O2SAT 99
[2017-09-03 08:26] VITALS: BP 160/100; PULSE 81; RESP 18; TEMP 98.1; O2SAT 99
[2017-09-03] MEDS ORDERED: SODIUM CHLORIDE 0.9% FLUSH 10 ML FLUSH IVF PRN (08:45)
[2017-09-03 09:00] LABS: AUTOMATED NEUTROPHIL # 2.1 TH/MM3 (1.8-7.7); BASOPHIL # 0.1 TH/MM3 (0-0.2); BASOPHIL % 1.9 % (0.0-2.0); EOSINOPHIL # 0.3 TH/MM3 (0-0.4); EOSINOPHIL % 7.5 % (0.0-4.0); HEMATOCRIT 40.3 % (39.0-51.0); HEMOGLOBIN 13.8 GM/DL (13.0-17.0); LYMPH % 28.6 % (9.0-44.0); LYMPHOCYTE # 1.2 TH/MM3 (1.0-4.8); MEAN CELL VOLUME 92.1 FL (80.0-100.0); MEAN CORPUSCULAR HEMOGLOBIN 31.6 PG (27.0-34.0); MEAN CORPUSCULAR HGB CONC 34.3 % (32.0-36.0); MEAN PLATELET VOLUME 6.6 FL (7.0-11.0); MONO % 11.9 % (0.0-8.0); MONOCYTE # 0.5 TH/MM3 (0-0.9); NEUT % 50.1 % (16.0-70.0); PLATELET COUNT 296 TH/MM3 (150-450); RED BLOOD COUNT 4.38 MIL/MM3 (4.50-5.90); RED CELL DISTRIBUTION WIDTH 13.7 % (11.6-17.2); WHITE BLOOD COUNT 4.3 TH/MM3 (4.0-11.0)
[2017-09-03] MEDS ORDERED: SODIUM CHLORID 0.9% 500 ML INJ 500 ML IV ONE (09:00)
[2017-09-03] MEDS ORDERED: KETOROLAC TROMETHAMINE 30 MG/ML (IVP) VIAL IV PUSH ONE (09:00)
--- NOTE | 2017-09-03 09:03 | PD ---
HPI Chief Complaint: Seizure Time Seen by Provider: 08:22 Travel History International Travel<30 days: No Contact w/Intl Traveler<30days: No Traveled to known affect area: No History of Present Illness HPI 87-year-old male with history of hypertension, hyperlipidemia, seizure disorder , asthma, who presents today with complaints of having 2 seizures within the last hour. According to the patient his woke him up after he was having his initial seizure. Report was that he had another seizure roughly 20 minutes after the second 1. Patient is unable to tell me when his last seizure was. Patient reports pain all over. He also reports chest pain and shortness of breath. The patient is still slightly postictal however is able to tell me he is on Tegretol and another medicine that he cannot recall at this time. PFSH Past Medical History Arthritis: No Asthma: Yes Autoimmune Disease: No Blood Disorders: No Anxiety: No Depression: No Heart Rhythm Problems: No Cancer: Yes (PROSTATE CA) Cardiovascular Problems: No High Cholesterol: Yes Chemotherapy: No Chest Pain: No Congestive Heart Failure: No COPD: No Cerebrovascular Accident: No Diabetes: No Diminished Hearing: No Endocrine: No Gastrointestinal Disorders: Yes GERD: No Glaucoma: No Genitourinary: Yes Headaches: No Hepatitis: No Hiatal Hernia: No Heparin Induced Thrombocytopen: No Hypertension: Yes Immune Disorder: No Kidney Stones: No Medical other: Yes (BLEEDING HEMORRHOIDS) Musculoskeletal: Yes Neurologic: Yes (SEIZURES SINCE A CHILD) Psychiatric: No Reproductive: No Respiratory: Yes (COPD, SLEEP APNEA, USES A CPAP MACHINE) Immunizations Current: Yes Migraines: No Myocardial Infarction: No Radiation Therapy: No Renal Failure: No Seizures: Yes Sickle Cell Disease: No Sleep Apnea: No Thyroid Disease: No Ulcer: No PNEUMOCCOCAL Vaccine (Year): 2 Past Surgical History Abdominal Surgery: No AICD: No Appendectomy: Yes (DENIES) Arteriovenous Shunt: No Body Medical Devices: HARDWARE IN R ANKLE Cardiac Surgery: No Cholecystectomy: No Ear Surgery: No Endocrine Surgery: No Eye Surgery: No Genitourinary Surgery: Yes (RADICAL PROSTATECTOMY) Gynecologic Surgery: No Insulin Pump: No Joint Replacement: No Neurologic Surgery: No Oral Surgery: No Pacemaker: No Thoracic Surgery: No Other Surgery: Yes Social History Alcohol Use: No Tobacco Use: Yes Substance Use: Yes (marijuana) Allergies-Medications (Allergen,Severity, Reaction): Coded Allergies: morphine (Verified Allergy, Severe, Itching, 09/03/17) *MDRO Multi-Drug Resistant Organism (Verified Adverse Reaction, Unknown, ) 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 Reported Meds & Prescriptions Reported Meds & Active Scripts Active Tamiflu (Oseltamivir Phosphate) 75 Mg Cap 75 Mg PO BID 5 Days Tessalon Perles (Benzonatate) 100 Mg Cap 100 Mg PO TID PRN Prednisone 20 Mg Tab 40 Mg PO DAILY Take 40 mg (2 tablets) daily for 5 days Phenobarbital 60 Mg Tab 60 Mg PO BID 14 Days Bard Arnoldo Krishnan Inco (Incontinence Supplies) 1 Mis Mis Bar EXTERNAL DAILY PRN use as directed Levofloxacin 750 Mg Tablet 750 Mg PO DAILY 42 Days Viagra (Sildenafil Citrate) 100 Mg Tab 100 Mg PO DAILY PRN Reported Keppra (Levetiracetam) 1,000 Mg Tab 1,000 Mg PO BID Lisinopril 20 Mg Tab 20 Mg PO DAILY Crestor (Rosuvastatin Calcium) 40 Mg Tab 40 Mg PO HS Tegretol (Carbamazepine) 200 Mg Tab 600 Mg PO BID Review of Systems Except as stated in HPI: all other systems reviewed are Neg General / Constitutional: No: Fever, Chills HENT: No: Headaches, Neck Pain Cardiovascular: Positive: Chest Pain or Discomfort, No: Palpitations Respiratory: Positive: Shortness of Breath, No: Cough Gastrointestinal: No: Nausea, Vomiting, Abdominal Pain Genitourinary: No: Dysuria, Incontinence Musculoskeletal: Positive: Myalgias, Pain (Generalized abdominal pain.), No: Weakness Neurologic: Positive: Seizures (2), No: Weakness, Headache Physical Exam Narrative GENERAL: Well-developed well-nourished male in no acute respiratory distress. SKIN: Focused skin assessment warm/dry. HEAD: Atraumatic. Normocephalic. EYES: Pupils equal and round. No scleral icterus. No injection or drainage. ENT: No nasal bleeding or discharge. Mucous membranes pink and moist. NECK: Trachea midline. Supple. CARDIOVASCULAR: Regular rate and rhythm. No murmur appreciated. RESPIRATORY: No accessory muscle use. Clear to auscultation. Breath sounds equal bilaterally. Decreased respiratory effort. GASTROINTESTINAL: Abdomen soft, obese, non-tender, nondistended. Hepatic and splenic margins not palpable. MUSCULOSKELETAL: No obvious deformities. No clubbing. No cyanosis. No edema. NEUROLOGICAL: Awake and slightly postictal. No obvious cranial nerve deficits. Motor grossly within normal limits. Normal speech. Data Data Last Documented VS Vital Signs Date Time Temp Pulse Resp B/P (MAP) Pulse Ox O2 Delivery O2 Flow Rate FiO2 09/03/17 09:56 16 09/03/17 08:26 98.1 81 160/100 (120) 99 Room Air Orders Orders Complete Blood Count With Diff (09/03/17 08:33) Carbamazepine (Tegretol) (09/03/17 08:33) Phenobarbital (09/03/17 08:33) Drug Screen, Random Urine (09/03/17 08:33) Blood Glucose (09/03/17 08:33) Ecg Monitoring (09/03/17 08:33) Iv Access Insert/Monitor (09/03/17 08:33) Oximetry (09/03/17 08:33) Comprehensive Metabolic Panel (09/03/17 08:33) Sodium Chloride 0.9% Flush (Ns Flush) (09/03/17 08:45) Ketorolac Inj (Toradol Inj) (09/03/17 09:00) Sodium Chlorid 0.9% 500 Ml Inj (Ns 500 M (09/03/17 09:00) Ckmb (Isoenzyme) Profile (09/03/17 08:58) Troponin I (09/03/17 08:58) Chest, Single Ap (09/03/17 08:58) CKMB (09/03/17 08:40) CKMB% (09/03/17 08:40) Admit Order (Ed Use Only) (09/03/17 10:06) Labs Laboratory Tests Test 09/03/17 08:40 White Blood Count 4.3 TH/MM3 Red Blood Count 4.38 MIL/MM3 Hemoglobin 13.8 GM/DL Hematocrit 40.3 % Mean Corpuscular Volume 92.1 FL Mean Corpuscular Hemoglobin 31.6 PG Mean Corpuscular Hemoglobin Concent 34.3 % Red Cell Distribution Width 13.7 % Platelet Count 296 TH/MM3 Mean Platelet Volume 6.6 FL Neutrophils (%) (Auto) 50.1 % Lymphocytes (%) (Auto) 28.6 % Monocytes (%) (Auto) 11.9 % Eosinophils (%) (Auto) 7.5 % Basophils (%) (Auto) 1.9 % Neutrophils # (Auto) 2.1 TH/MM3 Lymphocytes # (Auto) 1.2 TH/MM3 Monocytes # (Auto) 0.5 TH/MM3 Eosinophils # (Auto) 0.3 TH/MM3 Basophils # (Auto) 0.1 TH/MM3 CBC Comment DIFF FINAL Differential Comment Blood Urea Nitrogen 9 MG/DL Creatinine 0.88 MG/DL Random Glucose 105 MG/DL Total Protein 7.8 GM/DL Albumin 3.8 GM/DL Calcium Level 9.6 MG/DL Alkaline Phosphatase 97 U/L Aspartate Amino Transf (AST/SGOT) 17 U/L Alanine Aminotransferase (ALT/SGPT) 24 U/L Total Bilirubin 0.2 MG/DL Sodium Level 138 MEQ/L Potassium Level 4.2 MEQ/L Chloride Level 105 MEQ/L Carbon Dioxide Level 23.5 MEQ/L Anion Gap 10 MEQ/L Estimat Glomerular Filtration Rate 113 ML/MIN Total Creatine Kinase 220 U/L Creatine Kinase MB 1.8 NG/ML Troponin I LESS THAN 0.02 NG/ML Carbamazepine (Tegretol) Level 11.0 MCG/ML Phenobarbital Level LESS THAN 2.1 MCG/ML MDM Medical Decision Making Medical Screen Exam Complete: Yes Emergency Medical Condition: Yes Medical Record Reviewed: Yes Differential Diagnosis Breakthrough seizure versus subtherapeutic seizure medication versus ACS versus muscular skeletal chest pain versus asthma exacerbation Narrative Course 47-year-old male with a history of prostate cancer, seizure disorder, who presents today after having a seizure followed by another one shortly thereafter. The patient reports taking his medication as prescribed. I spoke with the and she reports nothing new in his history. He is currently receiving radiation treatment for his prostate cancer and was scheduled to have his last treatment today. The patient's Tegretol level is therapeutic. He also takes Keppra. Given this, I would recommend bringing him under observation and have the neurologist see him to make recommendations whether we should adjust his seizure medication. Case was discussed with Dr. Mishra, [facility], who agrees with the above plan. Diagnosis Primary Impression: Breakthrough seizure Additional Impressions: History of prostate cancer History of asthma with dyspnea Admitting Information Admitting Physician Requests: Observation Latrell Montano MD September 03, 2017 09:03
[2017-09-03 09:19] LABS: ALBUMIN 3.8 GM/DL (3.4-5.0); AST (GOT) 17 U/L (15-37); BICARBONATE 23.5 MEQ/L (21.0-32.0); BLOOD UREA NITROGEN 9 MG/DL (7-18); CALCIUM 9.6 MG/DL (8.5-10.1); CHLORIDE 105 MEQ/L (98-107); CREATININE 0.88 MG/DL (0.60-1.30); GLOMERULAR FILTRATION RATE 113 ML/MIN (>89); GLUCOSE,RANDOM 105 MG/DL (74-106); SODIUM (NA) 138 MEQ/L (136-145)
[2017-09-03 09:21] LABS: ALT (GPT) 24 U/L (12-78)
[2017-09-03 09:23] LABS: ALKALINE PHOSPHATASE 97 U/L (45-117); TOTAL BILIRUBIN ADULT 0.2 MG/DL (0.2-1.0); TOTAL PROTEIN 7.8 GM/DL (6.4-8.2)
[2017-09-03 09:25] VITALS: BP 140/74; PULSE 85; RESP 16; TEMP 98.1; O2SAT 98
--- NOTE | 2017-09-03 09:36 | RADRPT ---
EXAM DATE: 09/03/2017 9:22 AM EDT AGE/SEX: 47 years / Male INDICATIONS: Short of breath. CLINICAL DATA: This is the patient's initial encounter. Patient reports that signs and symptoms have been present for 1 day and indicates a pain score of 0/10. MEDICAL/SURGICAL HISTORY: . Hypertension. Carcinoma, prostate. Tuberculosis. None. COMPARISON: [facility] [place], CHEST SINGLE AP, 01/07/2017. . FINDINGS: A single AP view of the chest demonstrates the lungs to be symmetrically aerated without evidence of mass, infiltrate or effusion. The cardiomediastinal contours are unremarkable. Osseous structures a re intact. CONCLUSION: No acute cardiopulmonary disease. Electronically signed by: Yuri Kaminski MD 09/03/2017 9:34 AM EDT
[2017-09-03 09:42] LABS: TROPONIN I LESS THAN 0.02 NG/ML (0.02-0.05)
[2017-09-03 10:25] VITALS: BP 135/62; PULSE 85; RESP 15; TEMP 98.1; O2SAT 99
[2017-09-03] MEDS ORDERED: LORazepam 2 MG/ML VIAL IV PUSH PRN (10:45)
--- NOTE | 2017-09-03 10:51 | HHI.HP ---
[facility] Service [place] [facility] Primary Care Physician Reuben Gardner MD Admission Diagnosis breakthrough seizures, dyspnea, hx of prostate cancer Diagnoses: (1) Seizure Diagnosis: Principal Chief Complaint: seizures Travel History International Travel<30 Days: No Contact w/Intl Traveler <30 Da: No Traveled to Known Affected Are: No History of Present Illness patient is a 47 y/o male with history of seizure, prostate cancer, hypertension and dyslipidemia who was brought to ER after he had a couple of seizures this morning. he has a history of seizure and is being followed up by . he says that he is trying to take him off his Tegretol and the dose was reduced about a month ago. this morning he had two episodes of tonic-clonic seizures which lasted for about fifteen minutes. he denies any tongue biting or urinary incontinence. he denies any headache,nausea. but he says that he's tired. he's being treated with radiation for his prostate cancer and is supposed to have a radiation treatment this afternoon. Review of Systems Constitutional: DENIES: Fever, Weight loss, Chills, Night Sweats Eyes: DENIES: Blurred vision, Diplopia, Vision loss, Double Vision Ears, nose, mouth, throat: DENIES: Tinnitus, Vertigo, Throat pain, Epistaxis Respiratory: DENIES: Apneas, Cough, Snoring, Wheezing, Hemoptysis, Sputum production, Shortness of breath Cardiovascular: DENIES: Chest pain, Palpitations, Syncope, Dyspnea on Exertion , PND, Lower Extremity Edema, Orthopnea, Claudication Gastrointestinal: DENIES: Abdominal pain, Black stools, Bloody stools, Constipation, Diarrhea, Nausea, Vomiting, Difficulty Swallowing, Anorexia Genitourinary: DENIES: Urinary frequency, Urgency, Hematuria, Dysuria Musculoskeletal: DENIES: Joint pain, Muscle aches, Stiffness, Joint Swelling Integumentary: DENIES: Rash Neurologic: COMPLAINS OF: Seizures, DENIES: Abnormal gait, Headache, Localized weakness, Paresthesias, Speech Problems, Tremor, Poor Balance Psychiatric: DENIES: Anxiety, Confusion, Mood changes, Depression, Hallucinations, Agitation, Suicidal Ideation, Homicidal Ideation, Delusions Past Family Social History Past Medical History seizure disorder/ hypertension/prostate cancer/ dyslipidemia Past Surgical History prostate surgery. Reported Medications Tamiflu (Oseltamivir Phosphate) 75 Mg Cap 75 Mg PO BID 5 Days Tessalon Perles (Benzonatate) 100 Mg Cap 100 Mg PO TID PRN Prednisone 20 Mg Tab 40 Mg PO DAILY Take 40 mg (2 tablets) daily for 5 days Phenobarbital 60 Mg Tab 60 Mg PO BID 14 Days [facility] Male Inco (Incontinence Supplies) 1 Mis Mis Bar EXTERNAL DAILY PRN use as directed Levofloxacin 750 Mg Tablet 750 Mg PO DAILY 42 Days Viagra (Sildenafil Citrate) 100 Mg Tab 100 Mg PO DAILY PRN Reported Keppra (Levetiracetam) 1,000 Mg Tab 1,000 Mg PO BID Lisinopril 20 Mg Tab 20 Mg PO DAILY Crestor (Rosuvastatin Calcium) 40 Mg Tab 40 Mg PO HS Tegretol (Carbamazepine) 200 Mg Tab 600 Mg PO BID Allergies: Coded Allergies: morphine (Verified Allergy, Severe, Itching, 09/03/17) *MDRO Multi-Drug Resistant Organism (Verified Adverse Reaction, Unknown, ) 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 doesn't drink. Physical Exam Vital Signs Vital Signs Date Time Temp Pulse Resp B/P (MAP) Pulse Ox O2 Delivery O2 Flow Rate FiO2 09/03/17 08:26 98.1 81 18 160/100 (120) 99 Room Air 09/03/17 08:19 75 15 99 Room Air 09/03/17 08:11 97.5 81 24 160/115 (130) 100 Physical Exam GENERAL: This is a well-nourished, well-developed patient, in no apparent distress. SKIN: No rashes, ecchymoses or lesions. Cool and dry. HEAD: Atraumatic. Normocephalic. No temporal or scalp tenderness. EYES: Pupils equal round and reactive. Extraocular motions intact. No scleral icterus. No injection or drainage. ENT: Nose without bleeding, purulent drainage or septal hematoma. Throat without erythema, tonsillar hypertrophy or exudate. Uvula midline. Airway patent. NECK: Trachea midline. No JVD or lymphadenopathy. Supple, nontender, no meningeal signs. CARDIOVASCULAR: Regular rate and rhythm without murmurs, gallops, or rubs. RESPIRATORY: Clear to auscultation. Breath sounds equal bilaterally. No wheezes , rales, or rhonchi. GASTROINTESTINAL: Abdomen soft, non-tender, nondistended. No hepato-splenomegaly , or palpable masses. No guarding. MUSCULOSKELETAL: Extremities without clubbing, cyanosis, or edema. No joint tenderness, effusion, or edema noted. No calf tenderness. Negative Homans sign bilaterally. NEUROLOGICAL: Awake and alert. Cranial nerves II through XII intact. Motor and sensory grossly within normal limits. Five out of 5 muscle strength in all muscle groups. Normal speech. Laboratory Laboratory Tests Test 09/03/17 08:40 White Blood Count 4.3 Red Blood Count 4.38 Hemoglobin 13.8 Hematocrit 40.3 Mean Corpuscular Volume 92.1 Mean Corpuscular Hemoglobin 31.6 Mean Corpuscular Hemoglobin Concent 34.3 Red Cell Distribution Width 13.7 Platelet Count 296 Mean Platelet Volume 6.6 Neutrophils (%) (Auto) 50.1 Lymphocytes (%) (Auto) 28.6 Monocytes (%) (Auto) 11.9 Eosinophils (%) (Auto) 7.5 Basophils (%) (Auto) 1.9 Neutrophils # (Auto) 2.1 Lymphocytes # (Auto) 1.2 Monocytes # (Auto) 0.5 Eosinophils # (Auto) 0.3 Basophils # (Auto) 0.1 CBC Comment DIFF FINAL Differential Comment Blood Urea Nitrogen 9 Creatinine 0.88 Random Glucose 105 Total Protein 7.8 Albumin 3.8 Calcium Level 9.6 Alkaline Phosphatase 97 Aspartate Amino Transf (AST/SGOT) 17 Alanine Aminotransferase (ALT/SGPT) 24 Total Bilirubin 0.2 Sodium Level 138 Potassium Level 4.2 Chloride Level 105 Carbon Dioxide Level 23.5 Anion Gap 10 Estimat Glomerular Filtration Rate 113 Total Creatine Kinase 220 Creatine Kinase MB 1.8 Troponin I LESS THAN 0.02 Carbamazepine (Tegretol) Level 11.0 Phenobarbital Level LESS THAN 2.1 Result Diagram: 09/03/17 0840 09/03/17 0840 Imaging Last Impressions Chest X-Ray 09/03/17 0858 Signed Impressions: CONCLUSION: No acute cardiopulmonary disease. Caprini VTE Risk Assessment Caprini VTE Risk Assessment: Mod/High Risk (score >= 2) Caprini Risk Assessment Model Point Value = 1 Point Value = 2 Point Value = 3 Point Value = 5 Age 41-60 Minor surgery BMI > 25 kg/m2 Swollen legs Varicose veins or History of unexplained or recurrent spontaneous Oral contraceptives or hormone replacement Sepsis (< 1 month) Serious lung disease, including pneumonia (< 1 month) Abnormal pulmonary function Acute myocardial infarction Congestive heart failure (< 1 month) History of inflammatory bowel disease Medical patient at bed rest Age 61-74 Arthroscopic surgery Major open surgery (> 45 min) Laparoscopic surgery (> 45 min) Malignancy Confined to bed (> 72 hours) Immobilizing plaster cast Central venous access Age >= 75 History of VTE Family history of VTE Factor V Leiden Prothrombin [id number] Lupus anticoagulant Anticardiolipin antibodies Elevated serum homocysteine Heparin-induced thrombocytopenia Other congenital or acquired thrombophilia Stroke (< 1 month) Elective arthroplasty Hip, pelvis, or leg fracture Acute spinal cord injury (< 1 month) Prophylaxis Regimen Total Risk Factor Score Risk Level Prophylaxis Regimen 0-1 Low Early ambulation 2 Moderate Order ONE of the following: *Sequential Compression Device (SCD) *Heparin 5000 units SQ BID 3-4 Higher Order ONE of the following medications: *Heparin 5000 units SQ TID *Enoxaparin/Lovenox 40 mg SQ daily (WT < 150 kg, CrCl > 30 mL/min) *Enoxaparin/Lovenox 30 mg SQ daily (WT < 150 kg, CrCl > 10-29 mL/min) *Enoxaparin/Lovenox 30 mg SQ BID (WT < 150 kg, CrCl > 30 mL/min) AND/OR *Sequential Compression Device (SCD) 5 or more Highest Order ONE of the following medications: *Heparin 5000 units SQ TID (Preferred with Epidurals) *Enoxaparin/Lovenox 40 mg SQ daily (WT < 150 kg, CrCl > 30 mL/min) *Enoxaparin/Lovenox 30 mg SQ daily (WT < 150 kg, CrCl > 10-29 mL/min) *Enoxaparin/Lovenox 30 mg SQ BID (WT < 150 kg, CrCl > 30 mL/min) AND *Sequential Compression Device (SCD) Assessment and Plan Assessment and Plan A/P - recurrent seizures patient is being followed up by . seizure precautions/ ativan as needed/ will consult neurology. -prostate cancer- receiving radiation therapy; scheduled for radiation today; will consult radiation oncology. -hypertension/ dyslipidemia; resume home meds Discussed Condition With ER physician, the patient. Deejay Leon MD September 03, 2017 10:51
[2017-09-03 11:25] VITALS: BP 168/88; PULSE 85; RESP 17; TEMP 97.8; O2SAT 97
--- NOTE | 2017-09-03 14:56 | EKG ---
Date Performed: 09/03/2017 Time Performed: 08:23:47 PTAGE: 47 years EKG: Sinus rhythm RIGHT BUNDLE BRANCH BLOCK ABNORMAL ECG Since the PREVIOUS TRACING , no significant change noted PREVIOUS TRACIN01/07/2017 08.55 DOCTOR: Alex Cochran Interpretating Date/Time 09/03/2017 14:54:15
[2017-09-03] MEDS ORDERED: ATORVASTATIN 80 MG TAB PO SCH (21:00)
[2017-09-04] MEDS ORDERED: LISINOPRIL 20 MG TAB PO SCH (09:00)
== END 2017-09-03 14:00 | disposition left against medical advice (07) ==
LOC: NEPC 08:08 → NEDA 10:09
PROVIDERS: ADMIT Internal Medicine; ATTEND Internal Medicine
DX: R56.9 Unspecified convulsions (principal); J44.9 Chronic obstructive pulmonary disease, unspecified; I10 Essential (primary) hypertension; E78.5 Hyperlipidemia, unspecified; R07.9 Chest pain, unspecified; E78.00 Pure hypercholesterolemia, unspecified; G47.30 Sleep apnea, unspecified; F12.90 Cannabis use, unspecified, uncomplicated; F17.210 Nicotine dependence, cigarettes, uncomplicated; C61 Malignant neoplasm of prostate; Z92.3 Personal history of irradiation; I45.10 Unspecified right bundle-branch block; R94.31 Abnormal electrocardiogram [ECG] [EKG]; R06.02 Shortness of breath
CPT/HCPCS: 71045; 80053; 80156; 80184; 82550; 82552; 84484; 85025; 93005; 96360; 99285; G0378; J1885; J7040

== ENCOUNTER 2017-09-19 08:54 | Emergency (ER) | payer MEDICARE, OTHER ==
[~2017-09-19] VITALS: Ht 180.3 cm; Wt 91.0 kg
[~2017-09-19 08:54] MED LIST changes: -LEVO750T3 PO; -OSEL75 PO; -PHEN-524 PO; -PRED20 PO
[2017-09-19 09:00] VITALS: BP 230/107; PULSE 89; RESP 23; TEMP 98.4; O2SAT 95
[2017-09-19] MEDS ORDERED: HYDR-3583 PO (09:09)
[2017-09-19] MEDS ORDERED: SODIUM CHLOR 0.9% 1000 ML INJ 1,000 ML IV ONE (09:19)
[2017-09-19 09:26] VITALS: BP 199/86; PULSE 80; RESP 19; O2SAT 98
[2017-09-19] MEDS ORDERED: SODIUM CHLORIDE 0.9% FLUSH 10 ML FLUSH IVF PRN (09:30)
--- NOTE | 2017-09-19 09:31 | PD ---
HPI Chief Complaint: Seizure Time Seen by Provider: 08:58 Travel History International Travel<30 days: No Contact w/Intl Traveler<30days: No Traveled to known affect area: No History of Present Illness HPI The patient is a 47-year-old -[place] male who presents to the emergency department via private vehicle for seizure. The patient has a history of seizures is currently being weaned from Tegretol, and is taking Keppra. The patient is followed by his neurologist, Dr. Rivers. The patient states he had several seizures this morning, he did bite his lower lip. The patient states he was in bed when the seizures occurred, he denies any traumatic injuries to the head or neck. He denies any current headache, neck pain, chest pain, shortness breath, nausea, vomiting, or abdominal pain. He does complain of some generalized malaise and body aches. He denies any fever. Symptoms are moderate. PFSH Past Medical History Arthritis: No Asthma: Yes Autoimmune Disease: No Blood Disorders: No Anxiety: No Depression: No Heart Rhythm Problems: No Cancer: Yes (PROSTATE CA) Cardiovascular Problems: No High Cholesterol: Yes Chemotherapy: No Chest Pain: No Congestive Heart Failure: No COPD: No Cerebrovascular Accident: No Diabetes: No Diminished Hearing: No Endocrine: No Gastrointestinal Disorders: Yes GERD: No Glaucoma: No Genitourinary: Yes Headaches: No Hepatitis: No Hiatal Hernia: No Heparin Induced Thrombocytopen: No Hypertension: Yes Immune Disorder: No Kidney Stones: No Medical other: Yes (BLEEDING HEMORRHOIDS) Musculoskeletal: Yes Neurologic: Yes (SEIZURES SINCE A CHILD) Psychiatric: No Reproductive: No Respiratory: Yes (COPD, SLEEP APNEA, USES A CPAP MACHINE) Immunizations Current: Yes Migraines: No Myocardial Infarction: No Radiation Therapy: No Renal Failure: No Seizures: Yes Sickle Cell Disease: No Sleep Apnea: No Thyroid Disease: No Ulcer: No PNEUMOCCOCAL Vaccine (Year): 2 Past Surgical History Abdominal Surgery: No AICD: No Appendectomy: Yes (DENIES) Arteriovenous Shunt: No Body Medical Devices: HARDWARE IN R ANKLE Cardiac Surgery: No Cholecystectomy: No Ear Surgery: No Endocrine Surgery: No Eye Surgery: No Genitourinary Surgery: Yes (RADICAL PROSTATECTOMY) Gynecologic Surgery: No Insulin Pump: No Joint Replacement: No Neurologic Surgery: No Oral Surgery: No Pacemaker: No Thoracic Surgery: No Other Surgery: Yes Social History Alcohol Use: No Tobacco Use: Yes Substance Use: Yes (marijuana) Allergies-Medications (Allergen,Severity, Reaction): Coded Allergies: morphine (Verified Allergy, Severe, Itching, 09/19/17) *MDRO Multi-Drug Resistant Organism (Verified Adverse Reaction, Unknown, ) 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 Reported Meds & Prescriptions Reported Meds & Active Scripts Active Bard Arnoldo Krishnan Inco (Incontinence Supplies) 1 Mis Mis Bar EXTERNAL DAILY PRN use as directed Viagra (Sildenafil Citrate) 100 Mg Tab 100 Mg PO DAILY PRN Reported Keppra (Levetiracetam) 1,000 Mg Tab 1,000 Mg PO BID Lisinopril 20 Mg Tab 20 Mg PO DAILY Crestor (Rosuvastatin Calcium) 40 Mg Tab 40 Mg PO HS Tegretol (Carbamazepine) 200 Mg Tab 600 Mg PO QID Review of Systems Except as stated in HPI: all other systems reviewed are Neg General / Constitutional: No: Fever HENT: No: Headaches, Lightheadedness Cardiovascular: No: Chest Pain or Discomfort Respiratory: No: Shortness of Breath Gastrointestinal: No: Nausea, Vomiting, Abdominal Pain Musculoskeletal: No: Pain Skin: Positive Other (Patient states he bit his bottom lip, has a superficial abrasion/laceration) Neurologic: Positive: Seizures Physical Exam Narrative GENERAL: Awake, postictal pleasant 47-year-old male who appears his stated age and is in no acute respiratory distress. SKIN: Focused skin assessment warm/dry. HEAD: Atraumatic. Normocephalic. No visible hematomas, ecchymosis, or abrasions. EYES: No injection or drainage. ENT: No nasal bleeding or discharge. Mucous membranes pink and moist. Patient has a bite shmuel to his lower lip but no active bleeding. No significant laceration noted. NECK: Trachea midline. No JVD. No tenderness of the cervical vertebrae. CARDIOVASCULAR: Regular rate and rhythm. No murmur appreciated. RESPIRATORY: No accessory muscle use. Clear to auscultation. Breath sounds equal bilaterally. GASTROINTESTINAL: Abdomen soft, non-tender, nondistended. Back: No tenderness over the thoracic or lumbar vertebrae. MUSCULOSKELETAL: No obvious deformities. No clubbing. No cyanosis. No edema. NEUROLOGICAL: Awake, postictal,. No obvious cranial nerve deficits. Motor grossly within normal limits. Normal speech. Nonfocal. Moves all 4 extremities. Oriented 4. PSYCHIATRIC: Appropriate mood and affect; insight and judgment normal. Data Data Last Documented VS Vital Signs Date Time Temp Pulse Resp B/P (MAP) Pulse Ox O2 Delivery O2 Flow Rate FiO2 09/19/17 09:26 80 19 199/86 (123) 98 Nasal Cannula 2.00 09/19/17 09:00 98.4 Orders Orders Complete Blood Count With Diff (09/19/17 09:19) Alcohol (Ethanol) (09/19/17 09:19) Carbamazepine (Tegretol) (09/19/17 09:19) Blood Glucose (09/19/17:19) Ecg Monitoring (09/19/17:19) Iv Access Insert/Monitor (09/19/17:19) Oximetry (09/19/17:19) Comprehensive Metabolic Panel (09/19/17 09:19) Sodium Chlor 0.9% 1000 Ml Inj (Ns 1000 M (09/19/17 09:19) Sodium Chloride 0.9% Flush (Ns Flush) (09/19/17 09:30) Lorazepam Inj (Ativan Inj) (09/19/17 10:45) Levetiracetam Inj (Keppra Inj) (09/19/17 10:45) Ed Discharge Order (09/19/17 11:10) Electrocardiogram (09/19/17 09:03) Labs Laboratory Tests Test 09/19/17 09:20 09/19/17 10:02 White Blood Count 6.3 TH/MM3 Red Blood Count 4.32 MIL/MM3 Hemoglobin 14.5 GM/DL Hematocrit 40.1 % Mean Corpuscular Volume 92.8 FL Mean Corpuscular Hemoglobin 33.6 PG Mean Corpuscular Hemoglobin Concent 36.1 % Red Cell Distribution Width 14.0 % Platelet Count 328 TH/MM3 Mean Platelet Volume 7.5 FL Neutrophils (%) (Auto) 76.6 % Lymphocytes (%) (Auto) 13.5 % Monocytes (%) (Auto) 7.0 % Eosinophils (%) (Auto) 1.9 % Basophils (%) (Auto) 1.0 % Neutrophils # (Auto) 4.8 TH/MM3 Lymphocytes # (Auto) 0.8 TH/MM3 Monocytes # (Auto) 0.4 TH/MM3 Eosinophils # (Auto) 0.1 TH/MM3 Basophils # (Auto) 0.1 TH/MM3 CBC Comment AUTO DIFF Differential Comment AUTO DIFF CONFIRMED Blood Urea Nitrogen 11 MG/DL Creatinine 0.86 MG/DL Random Glucose 119 MG/DL Total Protein 7.4 GM/DL Albumin 3.6 GM/DL Calcium Level 8.9 MG/DL Alkaline Phosphatase 86 U/L Aspartate Amino Transf (AST/SGOT) 24 U/L Alanine Aminotransferase (ALT/SGPT) 23 U/L Total Bilirubin LESS THAN 0.1 MG/DL Sodium Level 138 MEQ/L Potassium Level 4.2 MEQ/L Chloride Level 105 MEQ/L Carbon Dioxide Level 22.7 MEQ/L Anion Gap 10 MEQ/L Estimat Glomerular Filtration Rate 116 ML/MIN Carbamazepine (Tegretol) Level 9.8 MCG/ML Ethyl Alcohol Level LESS THAN 3 MG/DL MDM Medical Decision Making Medical Screen Exam Complete: Yes Emergency Medical Condition: Yes Medical Record Reviewed: Yes Interpretation(s) EKG reveals normal sinus rhythm with a rate 87. RSR prime in V1 with right bundle branch block, QRS of 130 ms. Laboratory Tests Test 09/19/17 09:20 09/19/17 10:02 White Blood Count 6.3 TH/MM3 Red Blood Count 4.32 MIL/MM3 Hemoglobin 14.5 GM/DL Hematocrit 40.1 % Mean Corpuscular Volume 92.8 FL Mean Corpuscular Hemoglobin 33.6 PG Mean Corpuscular Hemoglobin Concent 36.1 % Red Cell Distribution Width 14.0 % Platelet Count 328 TH/MM3 Mean Platelet Volume 7.5 FL Neutrophils (%) (Auto) 76.6 % Lymphocytes (%) (Auto) 13.5 % Monocytes (%) (Auto) 7.0 % Eosinophils (%) (Auto) 1.9 % Basophils (%) (Auto) 1.0 % Neutrophils # (Auto) 4.8 TH/MM3 Lymphocytes # (Auto) 0.8 TH/MM3 Monocytes # (Auto) 0.4 TH/MM3 Eosinophils # (Auto) 0.1 TH/MM3 Basophils # (Auto) 0.1 TH/MM3 CBC Comment AUTO DIFF Differential Comment AUTO DIFF CONFIRMED Blood Urea Nitrogen 11 MG/DL Creatinine 0.86 MG/DL Random Glucose 119 MG/DL Total Protein 7.4 GM/DL Albumin 3.6 GM/DL Calcium Level 8.9 MG/DL Alkaline Phosphatase 86 U/L Aspartate Amino Transf (AST/SGOT) 24 U/L Alanine Aminotransferase (ALT/SGPT) 23 U/L Total Bilirubin LESS THAN 0.1 MG/DL Sodium Level 138 MEQ/L Potassium Level 4.2 MEQ/L Chloride Level 105 MEQ/L Carbon Dioxide Level 22.7 MEQ/L Anion Gap 10 MEQ/L Estimat Glomerular Filtration Rate 116 ML/MIN Carbamazepine (Tegretol) Level 9.8 MCG/ML Ethyl Alcohol Level LESS THAN 3 MG/DL Differential Diagnosis Differential diagnosis includes breakthrough seizure, supratherapeutic Tegretol level, subtherapeutic Tegretol level, hyponatremia, hypocalcemia, hypoglycemia, status epilepticus. Narrative Course IV was established, labs are drawn and sent, the patient was placed on cardiac telemetry monitoring and continuous pulse oximetry monitoring. EKG was ordered and interpreted. Seizure precautions were instituted. Tegretol level was sent to lab. The patient was administered 1 L of IV fluids. The patient's Tegretol level was within therapeutic range. The patient stated he felt like he is going to have a seizure, therefore, was administered Ativan 1 mg intravenously and Keppra 500 mg intravenously. There was no seizure activity. Otherwise, labs are unremarkable. The patient's heart rate was in the 70s, the patient was easily arousable. The patient be discharged home, is advised to follow-up with his neurologist. Return if symptoms worsen or progress. Diagnosis Primary Impression: Breakthrough seizure Patient Instructions: General Instructions Additional Instructions: Follow-up with your neurologist. Continue medications as previously directed. Return if symptoms worsen or progress. Med/Other Pt SpecificInfo: Prescription(s) given, No Change to Meds Scripts Promethazine (Phenergan) 25 Mg Tablet 25 MG PO Q6H Y for NAUSEA OR VOMITING, #12 TAB 0 Refills Prov: Ben Bai MD 09/19/17 Disposition: DISCHARGE HOME Condition: Stable Ben Bai MD Sep 19, 2017 09:31
[2017-09-19 09:40] LABS: AUTOMATED NEUTROPHIL # 4.8 TH/MM3 (1.8-7.7); BASOPHIL # 0.1 TH/MM3 (0-0.2); EOSINOPHIL # 0.1 TH/MM3 (0-0.4); EOSINOPHIL % 1.9 % (0.0-4.0); HEMATOCRIT 40.1 % (39.0-51.0); HEMOGLOBIN 14.5 GM/DL (13.0-17.0); LYMPH % 13.5 % (9.0-44.0); LYMPHOCYTE # 0.8 TH/MM3 (1.0-4.8); MEAN CELL VOLUME 92.8 FL (80.0-100.0); MEAN CORPUSCULAR HEMOGLOBIN 33.6 PG (27.0-34.0); MEAN PLATELET VOLUME 7.5 FL (7.0-11.0); MONOCYTE # 0.4 TH/MM3 (0-0.9); NEUT % 76.6 % (16.0-70.0); PLATELET COUNT 328 TH/MM3 (150-450); RED BLOOD COUNT 4.32 MIL/MM3 (4.50-5.90); WHITE BLOOD COUNT 6.3 TH/MM3 (4.0-11.0)
[2017-09-19 09:46] LABS: MEAN CORPUSCULAR HGB CONC 36.1 % (32.0-36.0)
[2017-09-19 10:41] LABS: ALKALINE PHOSPHATASE 86 U/L (45-117); ALT (GPT) 23 U/L (12-78); CARBAMAZEPINE (TEGRETOL) 9.8 MCG/ML (4.0-12.0); TOTAL BILIRUBIN ADULT LESS THAN 0.1 MG/DL (0.2-1.0); TOTAL PROTEIN 7.4 GM/DL (6.4-8.2)
[2017-09-19] MEDS ORDERED: levETIRAcetam INJ 500 MG in SODIUM CHLORIDE 0.9% INJ 100 ML IV ONE (10:45)
[2017-09-19] MEDS ORDERED: LORazepam 2 MG/ML VIAL IV PUSH ONE (10:45)
[2017-09-19 10:46] LABS: ALBUMIN 3.6 GM/DL (3.4-5.0); AST (GOT) 24 U/L (15-37); BICARBONATE 22.7 MEQ/L (21.0-32.0); BLOOD UREA NITROGEN 11 MG/DL (7-18); CALCIUM 8.9 MG/DL (8.5-10.1); CHLORIDE 105 MEQ/L (98-107); CREATININE 0.86 MG/DL (0.60-1.30); GLOMERULAR FILTRATION RATE 116 ML/MIN (>89); GLUCOSE,RANDOM 119 MG/DL (74-106); SODIUM (NA) 138 MEQ/L (136-145)
[2017-09-19] MEDS ORDERED: PROM25TA10 PO (11:57)
--- NOTE | 2017-09-20 14:01 | EKG ---
Date Performed: 09/19/2017 Time Performed: 09:03:09 PTAGE: 47 years EKG: Sinus rhythm RIGHT BUNDLE BRANCH BLOCK ABNORMAL ECG INTERPRETATION BASED ON A DEFAULT AGE OF 41 YEARS PREVIOUS TRACING : 09/03/2017 08.23 Since the previous tracing, no significant change not ed DOCTOR: Henrry Sarah Interpretating Date/Time 09/20/2017 13:55:32
== END 2017-09-19 12:49 | disposition home or self-care (01) ==
LOC: NEPC 08:54
DX: R56.9 Unspecified convulsions (principal); R53.81 Other malaise; I45.10 Unspecified right bundle-branch block; R94.31 Abnormal electrocardiogram [ECG] [EKG]; E78.00 Pure hypercholesterolemia, unspecified; I10 Essential (primary) hypertension; J44.9 Chronic obstructive pulmonary disease, unspecified; G47.30 Sleep apnea, unspecified; F12.90 Cannabis use, unspecified, uncomplicated; Z79.899 Other long term (current) drug therapy; Z88.5 Allergy status to narcotic agent; Z72.0 Tobacco use
CPT/HCPCS: 80053; 80156; 80307; 85025; 93005; 96361; 96374; 96375; 99284; J1953; J2060; J7030

== ENCOUNTER 2017-09-24 16:37 | Emergency (ER) | payer MEDICARE, OTHER ==
[~2017-09-24] VITALS: Ht 180.3 cm; Wt 115.0 kg
[~2017-09-24 16:37] MED LIST changes: -BENZ100 PO; +HYDR-3583 PO; +PROM25TA10 PO
[2017-09-24 16:54] VITALS: BP 158/74; PULSE 80; RESP 22; TEMP 97.7; O2SAT 98
--- NOTE | 2017-09-24 18:08 | PD ---
HPI . Lower abdominal pain Chief Complaint: Complaint Time Seen by Provider: 17:37 Travel History International Travel<30 days: No Contact w/Intl Traveler<30days: No Traveled to known affect area: No History of Present Illness HPI This patient presents with acute onset of lower abdominal pain, inability to urinate, leaking urine and pain at the urethral meatus. He rates his pain 10/ 10. He has a history of prostate cancer and is status post resection and radiation therapy. He finished radiation therapy about 2 weeks ago. In addition, the patient is complaining with loose stools. That has been an ongoing problem for the past week or so. PFSH Past Medical History Arthritis: No Asthma: Yes Autoimmune Disease: No Blood Disorders: No Anxiety: No Depression: No Heart Rhythm Problems: No Cancer: Yes (PROSTATE CA) Cardiovascular Problems: No High Cholesterol: Yes Chemotherapy: No Chest Pain: No Congestive Heart Failure: No COPD: No Cerebrovascular Accident: No Diabetes: No Diminished Hearing: No Endocrine: No Gastrointestinal Disorders: Yes GERD: No Glaucoma: No Genitourinary: Yes Headaches: No Hepatitis: No Hiatal Hernia: No Heparin Induced Thrombocytopen: No Hypertension: Yes Immune Disorder: No Kidney Stones: No Medical other: Yes (BLEEDING HEMORRHOIDS) Musculoskeletal: Yes Neurologic: Yes (SEIZURES SINCE A CHILD) Psychiatric: No Reproductive: No Respiratory: Yes (COPD, SLEEP APNEA, USES A CPAP MACHINE) Immunizations Current: Yes Migraines: No Myocardial Infarction: No Radiation Therapy: Yes (last treatment september 06 2017) Renal Failure: No Seizures: Yes Sickle Cell Disease: No Sleep Apnea: No Thyroid Disease: No Ulcer: No PNEUMOCCOCAL Vaccine (Year): 2 Past Surgical History Abdominal Surgery: No AICD: No Appendectomy: Yes (DENIES) Arteriovenous Shunt: No Body Medical Devices: HARDWARE IN R ANKLE Cardiac Surgery: No Cholecystectomy: No Ear Surgery: No Endocrine Surgery: No Eye Surgery: No Genitourinary Surgery: Yes (RADICAL PROSTATECTOMY) Gynecologic Surgery: No Insulin Pump: No Joint Replacement: No Neurologic Surgery: No Oral Surgery: No Pacemaker: No Thoracic Surgery: No Other Surgery: Yes Social History Alcohol Use: No Tobacco Use: Yes Substance Use: Yes (marijuana) Allergies-Medications (Allergen,Severity, Reaction): Coded Allergies: morphine (Verified Allergy, Severe, Itching, 09/24/17) *MDRO Multi-Drug Resistant Organism (Verified Adverse Reaction, Unknown, ) 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 Reported Meds & Prescriptions Reported Meds & Active Scripts Active Phenergan (Promethazine HCl) 25 Mg Tablet 25 Mg PO Q6H PRN Bard Mclaughlin Male Inco (Incontinence Supplies) 1 Mis Mis Bar EXTERNAL DAILY PRN use as directed Viagra (Sildenafil Citrate) 100 Mg Tab 100 Mg PO DAILY PRN Reported Hydrocodone-Acetaminophen 10-325 mg Tab 1 Tab PO Q6H PRN Keppra (Levetiracetam) 1,000 Mg Tab 1,000 Mg PO BID Lisinopril 20 Mg Tab 20 Mg PO DAILY Crestor (Rosuvastatin Calcium) 40 Mg Tab 40 Mg PO HS Tegretol (Carbamazepine) 200 Mg Tab 600 Mg PO QID Review of Systems Except as stated in HPI: all other systems reviewed are Neg General / Constitutional: Positive: Other (Diaphoresis) Cardiovascular: No: Chest Pain or Discomfort Respiratory: No: Shortness of Breath Gastrointestinal: Positive: Abdominal Pain, No: Nausea, Vomiting, Diarrhea Genitourinary: Positive: Dribbling, Incontinence Physical Exam Narrative GENERAL: Awake and alert. SKIN: Warm and dry. Normal color and turgor. HEAD: Normocephalic/atraumatic. EYES: Pupils are equal. Extraocular movements are intact. NECK: Normal range of motion. Supple. CARDIOVASCULAR: Regular rate and rhythm. RESPIRATORY: Nonlabored respirations. Normal sats. ABDOMEN: Soft with suprapubic tenderness. I do not feel a full bladder. : Normal circumcised male. The urethral meatus and glans appear normal. MUSCULOSKELETAL: Atraumatic. Normal muscle tone. NEUROLOGICAL: A and O 3. Nonfocal. PSYCHIATRIC: Appropriate mood and affect. Data Data Last Documented VS Vital Signs Date Time Temp Pulse Resp B/P (MAP) Pulse Ox O2 Delivery O2 Flow Rate FiO2 09/24/17 16:54 97.7 80 22 158/74 (102) 98 Orders Orders Urinary Catheter Management SAEED.Q8H (09/24/17 17:45) Urinalysis - C+S If Indicated (09/24/17 17:45) Phenazopyridine (Pyridium) (09/24/17 18:45) Urinary Catheter - Remove (09/24/17 18:36) Labs Laboratory Tests Test 09/24/17 17:57 Urine Color YELLOW Urine Turbidity CLEAR Urine pH 5.0 Urine Specific [place] 1.024 Urine Protein 30 mg/dL Urine Glucose (UA) NEG mg/dL Urine Ketones NEG mg/dL Urine Occult Blood NEG Urine Nitrite NEG Urine Bilirubin NEG Urine Urobilinogen LESS THAN 2 mg/dL Urine Leukocyte Esterase NEG Urine RBC LESS THAN 1 /hpf Urine WBC 1 /hpf Urine Squamous Epithelial Cells 1 /hpf Urine Mucus FEW /lpf Microscopic Urinalysis Comment CATH-CULT NOT IND MDM Medical Decision Making Medical Screen Exam Complete: Yes Emergency Medical Condition: Yes Differential Diagnosis Final differential diagnosis of urinary symptoms includes but is not limited to UTI, kidney stone, pyelonephritis, bacterial vaginosis, yeast infection, urinary retention Narrative Course This patient presents with the inability to urinate, lower abdominal pain and pain at the urethral meatus. I suspect acute urinary retention associated with a urinary tract infection. Merchant catheter has been ordered as well as a urinalysis. Diagnosis Primary Impression: Dysuria Referrals: Vidal Rodriguez DO Patient Instructions: Dysuria (ED), General Instructions Additional Instructions: Follow up with Dr. Rodriguez Med/Other Pt SpecificInfo: Prescription(s) given Scripts Phenazopyridine (Pyridium) 100 Mg Tab 200 MG PO Q8H Y for DYSURIA, #20 TAB 0 Refills Prov: Cyndi Mae MD 09/24/17 Disposition: 01 DISCHARGE HOME Condition: Stable Cyndi Mae MD Sep 24, 2017 18:07
[2017-09-24 18:11] LABS: BILIRUBIN, URINE NEG (NEG); BLOOD, URINE NEG (NEG); GLUCOSE,URINE NEG (NEG); KETONE, URINE NEG (NEG); MUCUS URINE FEW /lpf (OCC); NITRITE,URINE NEG (NEG); SQUAMOUS EPITHELIAL CELL URINE 1 /hpf (0-5); URINE COLOR YELLOW (YELLW/STRAW); URINE LEUKOCYTE ESTERASE NEG (NEG)
[2017-09-24] MEDS ORDERED: PHEN0.4T PO (18:39)
[2017-09-24] MEDS ORDERED: PHENAZOPYRIDINE HCL 200 MG TAB PO ONE (18:45)
[2017-09-24 19:00] VITALS: BP 147/77; PULSE 88; RESP 18; O2SAT 99
== END 2017-09-24 19:29 | disposition home or self-care (01) ==
LOC: NEPE 16:37
DX: R30.0 Dysuria (principal); F12.90 Cannabis use, unspecified, uncomplicated; E78.00 Pure hypercholesterolemia, unspecified; I10 Essential (primary) hypertension; J44.9 Chronic obstructive pulmonary disease, unspecified; G47.30 Sleep apnea, unspecified; Z79.899 Other long term (current) drug therapy; Z88.5 Allergy status to narcotic agent; Z85.46 Personal history of malignant neoplasm of prostate; Z86.69 Personal history of other diseases of the nervous system and sense organs; Z72.0 Tobacco use
CPT/HCPCS: 51702; 81001